=== PATIENT | female | born 1945 | race Caucasian/White ===

== ENCOUNTER 2016-09-29 18:52 | Observation (INO) | payer OTHER ==
[2016-09-29] MEDS ORDERED: HYDROmorphONE/DILAUDID 1 MG/ML SYR ONE (19:27)
[2016-09-29] MEDS ORDERED: ONDANSETRON 4 MG/2 ML VIAL ONE ×2 (19:36→20:26)
[2016-09-29] MEDS ORDERED: HYDROmorphONE/DILAUDID 1 MG/ML SYR IM ONE (19:40)
[2016-09-29 19:43] LABS: % IMMATURE GRANULYOCYTES 0.6 % (0.0-1.1); ABSOLUTE IMMATURE GRANULOCYTES 0.08 10^3/uL (0.00-0.10); ADD DIFF? NO; ADD MORPH? NO; ADD SCAN? NO; ATYPICAL LYMPHOCYTE FLAG 0 (0-99); FRAGMENT RBC FLAG 0 (0-99); HEMATOCRIT 47.1 % (38.0-47.0); HEMOGLOBIN 16.5 g/dL (12.6-16.3); LEFT SHIFT FLG 0 (0-99); LIPEMIA HEMOLYSIS FLAG 90 (0-99); MEAN CELL VOLUME 96.9 fL (81.5-99.8); MEAN PLATELET VOLUME 10.1 fL (8.7-11.7); PLATELET CLUMPS FLAG 0 (0-99); PLATELET COUNT 211 10^3/uL (150-400); RED BLOOD CELL COUNT 4.86 10^6/uL (4.18-5.33); RED CELL DISTRIBUTION WIDTH 13.6 % (11.5-15.2)
[2016-09-29] MEDS ORDERED: ONDANSETRON 4 MG/2 ML VIAL IVP ONE ×2 (19:45→20:41)
[2016-09-29] MEDS ORDERED: NS 1,000 ML IV ONE (19:45)
[2016-09-29] MEDS ORDERED: HYDROmorphONE/DILAUDID 1 MG/ML SYR IVP ONE ×2 (20:31→20:48)
[2016-09-29] MEDS ORDERED: PROMETHAZINE HCL 25 MG/ML VIAL ONE (20:48)
[2016-09-29] MEDS ORDERED: PROMETHAZINE HCL 25 MG/ML VIAL IVP ONE (20:48)
[2016-09-29 21:00] LABS: ALANINE AMINOTRANSFERASE 44 IU/L (9-52); ALBUMIN 3.9 g/dL (3.5-5.0); ALKALINE PHOSPHATASE 233 IU/L (38-126); ANION GAP 14 mEq/L (8-16); ASPARTATE AMINOTRANSFERASE 57 IU/L (14-46); BILIRUBIN,TOTAL 0.9 mg/dL (0.1-1.4); BILIRUBIN-CONJUGATED 0.3 mg/dL (0.0-0.5); BILIRUBIN-UNCONJUGATED 0.6 mg/dL (0.0-1.1); CARBON DIOXIDE 23 mEq/l (22-31); CHLORIDE 103 mEq/L (97-110); CREATININE 0.5 mg/dL (0.6-1.0); GLOMERULAR FILTRATION RATE > 60; GLUCOSE 168 mg/dL (70-100); POTASSIUM 3.9 mEq/L (3.5-5.2); SODIUM 140 mEq/L (134-144); TOTAL PROTEIN 6.6 g/dL (6.3-8.2)
--- NOTE | 2016-09-29 21:44 | EDPHY ---
[id number]'s disease, bowel surgeries and bowel obstructions in the past with chronic abdominal pain and nausea. Patient normally takes Zofran methadone. She started having increasing nausea yesterday with multiple episodes of vomiting. Because of this she has been able to tolerate her pain medications. She states that she is having worsening diffuse abdominal pain. Patient states this is similar to her prior episodes of bowel obstruction. She was just admitted a month ago for similar symptoms but did not have an obstruction at that time. Denies any fevers or chills. No diarrhea. No chest pain or shortness of breath. She has been unable to keep anything down for 24 hours. ROS: 10 point Review of Systems is negative except as noted in the HPI. Physical exam: Gen: Awake, Alert, uncomfortable appearing HEENT: Nose: no rhinorrhea Eyes: PERRLA, EOMI Mouth: Dry mucosa Neck: Supple, no JVD Chest: nontender, lungs clear to auscultation Heart: S1, S2 normal, no murmur Abd: Diffuse tenderness with moderate voluntary guarding, not distended, difficult to evaluate due to patient's not cooperating Back: no CVA tenderness, no midline tenderness Ext: no edema, non-tender Skin: no rash Neuro: CN II-XII intact, Sensation grossly intact, Strength 5/5 in bilateral upper and lower extremities ED Course: Abdominal x-ray limited based on patient position. Per Dr. Whyte is concerned that there is a possibility of some free air. Patient does have a elevated white count 14. I think this is likely mostly demargination from her vomiting. Plain film cannot rule out free air. There is some dilated loops of bowel but no air-fluid level suggestive of obstruction at this time. CT scan has been ordered at Dr. Whyte recommendation. In the meantime of spoken with Dr. Duffy, hospitalist for plan for admission for continued symptom control and further evaluation. CT abdomen and pelvis is negative for acute perforation, obstruction, or inflammatory process per Dr. Whyte. - Data Points Laboratory Results: Laboratory Results 09/29/16 19:20 09/29/16 20:20 09/29/16 09/29/16 20:20 19:20 WBC 14.40 H 10^3/uL (3.80-9.50) RBC 4.86 10^6/uL (4.18-5.33) Hgb 16.5 H g/dL (12.6-16.3) Hct 47.1 H % (38.0-47.0) MCV 96.9 fL (81.5-99.8) MCH 34.0 pg (27.9-34.1) MCHC 35.0 g/dL (32.4-36.7) RDW 13.6 % (11.5-15.2) Plt Count 211 10^3/uL (150-400) MPV 10.1 fL (8.7-11.7) Neut % (Auto) 81.9 H % (39.3-74.2) Lymph % (Auto) 8.4 L % (15.0-45.0) [place] % (Auto) 8.5 % (4.5-13.0) Eos % (Auto) 0.1 L % (0.6-7.6) Baso % (Auto) 0.5 % (0.3-1.7) Nucleat RBC Rel Count 0.0 % (0.0-0.2) Absolute Neuts (auto) 11.80 H 10^3/uL (1.70-6.50) Absolute Lymphs (auto) 1.21 10^3/uL (1.00-3.00) Absolute Monos (auto) 1.23 H 10^3/uL (0.30-0.80) Absolute Eos (auto) 0.01 L 10^3/uL (0.03-0.40) Absolute Basos (auto) 0.07 10^3/uL (0.02-0.10) Absolute Nucleated RBC 0.00 10^3/uL (0-0.01) Immature Gran % 0.6 % (0.0-1.1) Immature Gran # 0.08 10^3/uL (0.00-0.10) Sodium 140 mEq/L REJ (134-144) Potassium 3.9 mEq/L Not Reported (3.5-5.2) Chloride 103 mEq/L Not Reported (97-110) Carbon Dioxide 23 mEq/l Not Reported (22-31) Anion Gap 14 mEq/L Not Reported (8-16) BUN 9 mg/dL Not Reported (7-23) Creatinine 0.5 L mg/dL Not Reported (0.6-1.0) Estimated GFR > 60 Not Reported Glucose 168 H mg/dL Not Reported (70-100) Calcium 9.0 mg/dL Not Reported (8.5-10.4) Total Bilirubin 0.9 mg/dL Not Reported (0.1-1.4) Conjugated Bilirubin 0.3 mg/dL Not Reported (0.0-0.5) Unconjugated Bilirubin 0.6 mg/dL Not Reported (0.0-1.1) AST 57 H IU/L Not Reported (14-46) ALT 44 IU/L Not Reported (9-52) Alkaline Phosphatase 233 H IU/L Not Reported (38-126) Total Protein 6.6 g/dL REJ (6.3-8.2) Albumin 3.9 g/dL Not Reported (3.5-5.0) Lipase 43.0 IU/L REJ (23-300) Medications Given: Discontinued Medications Hydromorphone HCl (Dilaudid) 2 mg IM EDNOW ONE Stop: 09/29/16 19:41 Last Admin: 09/29/16 20:19 Dose: 2 mg Hydromorphone HCl (Dilaudid) 0.5 mg IVP EDNOW ONE Stop: 09/29/16 20:32 Last Admin: 09/29/16 20:31 Dose: 0.5 mg Hydromorphone HCl (Dilaudid) 0.5 mg IVP EDNOW ONE Stop: 09/29/16 20:49 Last Admin: 09/29/16 20:55 Dose: 0.5 mg Sodium Chloride (Ns) 1,000 mls @ 0 mls/hr IV ONCE ONE PRN Reason: Wide Open Stop: 09/29/16 19:46 Last Admin: 09/29/16 19:45 Dose: 1,000 mls Lorazepam (Ativan Injection) 1 mg IVP EDNOW ONE Stop: 09/29/16 22:03 Last Admin: 09/29/16 22:18 Dose: 1 mg Ondansetron HCl (Zofran) 4 mg IVP EDNOW ONE Stop: 09/29/16 19:46 Last Admin: 09/29/16 19:45 Dose: 4 mg Ondansetron HCl (Zofran) 4 mg IVP EDNOW ONE Stop: 09/29/16 20:42 Last Admin: 09/29/16 20:41 Dose: 4 mg Promethazine HCl (Phenergan Injection) 12.5 mg IVP ONCE ONE Stop: 09/29/16 20:49 Last Admin: 09/29/16 20:55 Dose: 12.5 mg General Time Seen by Provider: 09/29/16 19:07 Initial Vital Signs: Initial Vital Signs Heart Rate 89 09/29/16 18:52 Respiratory Rate 22 H 09/29/16 18:52 Blood Pressure 103/73 09/29/16 18:52 O2 Sat (%) 97 09/29/16 18:52 O2 Delivery Mode Nasal Cannula O2 (L/minute) 2 Allergies/Adverse Reactions: No Known Allergies Allergy (Verified 04/06/16 08:02) Home Medications: Medication Instructions Recorded Docusate Sodium [Colace 100 MG (*)] 100 mg PO DAILY PRN 12/18/15 Methadone HCl [Methadone HCl 10 mg 20 mg PO Q6 12/18/15 (*)] Omeprazole 20 mg PO DAILY 12/18/15 oxyCODONE IR [Oxycodone Ir (*)] 5 mg PO Q4 PRN 12/18/15 sulfaSALAzine [Azulfidine 500 MG 500 mg PO QID 12/18/15 (*)] Estradiol [Climara] 0.025 mg TD MO@09 08/27/16 Herbals/Supplements -Info Only 1 ea PO DAILY 08/27/16 Ondansetron [Ondansetron Odt] 4 mg PO Q4 PRN 08/27/16 Acetaminophen [Tylenol 325mg (*)] 650 mg PO Q4HRS PRN #0 tab 08/28/16 Departure - Departure Disposition: [facility] Clinical Impression: Abdominal pain, Vomiting Condition: Fair
[2016-09-29] MEDS ORDERED: LORazepam 2 MG/ML INJ IVP ONE (22:02)
--- NOTE | 2016-09-29 22:14 | DX ---
Two Views of the Abdomen (AP chest and supine abdomen) History: Abdominal pain. Vomiting. History of small bowel obstruction in the past. Patient is unable to stand for the upright abdomen film. Crohn's disease. Comparison: KUB August 27, 2016 Findings: PA chest: Density from bilateral breast implant capsular calcification overlies each lower chest. No evidence for pneumonia or pleural effusion. No obvious free air seen beneath either hemidia phragm. There is a right shoulder replacement. The distal right clavicle has been surgically resected . KUB: There are no dilated there is a prominent gas-filled loop of bowel in the right pelvis. The lowe r margin of the liver is quite sharp such that it is impossible to exclude free air adjacent to the l iver. There is a chronic severe lumbar scoliosis. Impression: Possible right upper quadrant free air beneath the liver. Consider CT. Results discussed with Dr. Watts at 10:10 PM
[2016-09-29] MEDS ORDERED: IOPAMIDOL (ISOVUE-300) 100 ML BTL IV ONE (22:22)
--- NOTE | 2016-09-29 22:24 | PDGENHP ---
History and Physical History and Physical: Chief Complaint: Nausea, vomiting, and abdominal pain History of presenting illness: This is a 71-year-old female who is present in the hospital multiple times with similar symptoms presents to the emergency department today with abdominal pain and nausea vomiting. During the time my exam the patient was somewhat somnolent and hard to arouse. She was not speaking in full sentences. She was unable to tell me when her symptoms started. She does say that she has been having problems with nausea vomiting and has not been able to take her pain medications. She has not been able eat or drink Due to vomiting. She denies any fevers or chills. She denies any diarrhea. In the emergency department she was given a total of 5 mg of IV Dilaudid, as well as Phenergan, and Zofran. Past medical history: 1. Recurrent admissions for abdominal pain last of which was August of 2016 2. Questionable history of Crohn's disease 3. 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 Chronic back pain with continuous opioid dependency 5. GERD 6. scoliosis Past surgical history: 1. Cholecystectomy 2. Appendectomy 3. History of lysis of adhesions 4. Hysterectomy 5. Breast augmentation Home medications: Were reviewed refer to [facility] for details Allergies: No known drug allergies Social history: Patient lives in [place] with her . She denies any tobacco use. She does use marijuana. She denies any alcohol. Family history: Negative for cancer or coronary artery disease Review of systems: A comprehensive 10 point review systems was done that was negative except for what was mentioned in the HPI and below. PHYSICAL EXAM: 09/29/16 18:52 Heart Rate 89 Respiratory 22 H Rate O2 Sat (%) 97 Blood Pressure 103/73 O2 Delivery Room Air Mode GENERAL: Uncomfortable HEENT: Head is normocephalic atraumatic, eyes are PERRLA, ears are normal appearing, mucous membranes are moist without lesions CARDIOVASCULAR: Regular rate and rhythm; normal S1 and S2 without murmurs, rubs , clicks, gallops; there is no JVD; there is no lower extremity edema PULMONARY: Lungs are clear to auscultation bilaterally without wheezes, rales, rhonchi; respiratory effort is nonlabored without signs of acute respiratory distress. ABDOMINAL/GASTROINTESTINAL: Soft, nontender, nondistended with normoactive bowel sounds. There is no guarding or rebound tenderness. GENITOURINARY: No Lopez in place EXTREMITIES: No clubbing, cyanosis, or edema NEUROLOGIC: Cranial nerves 2-12 appear grossly intact; face symmetric; moves all other extremities; speech is slurred and slow; alert and oriented to person and place SKIN: There are no rashes; I did not examine the patient for decubiti Diagnostics: Laboratory Tests 09/29/16 09/29/16 19:20 20:20 WBC 14.40 H Hgb 16.5 H Hct 47.1 H Plt Count 211 Sodium 140 Potassium 3.9 Chloride 103 Carbon Dioxide 23 BUN 9 Creatinine 0.5 L Glucose 168 H AST 57 H ALT 44 Alkaline Phosphatase 233 H Imaging: Visualized and personally interpreted the KUB and chest x-ray Radiology read was reviewed: Possible right upper quadrant free air beneath the liver. Consider CT. Assessment: this 71-year-old female with a reported history of Crohn's disease as well as multiple bowel obstructions requiring multiple hospitalizations for nausea vomiting abdominal pain presenting with 1. intractable nausea vomiting 2. dehydration 3. leukocytosis likely due to stress demargination 4. history of chronic daily opioid dependence not able to take her home medications 5. mildly elevated ALT plan: - Place in observation - IV fluids - IV antiemetics - IV narcotic pain medications in hopes to transition to her usual home oral regime in the morning - outpatient monitoring of LFTs - clear liquid diet and advance as tolerated
--- NOTE | 2016-09-29 23:14 | CT ---
CT Abdomen and Pelvis, with contrast HISTORY: Nausea and vomiting, history of Crohn's disease and bowel resection for small bowel obstruct ion, possible free air seen on abdominal x-rays earlier TECHNIQUE: 90 mL Isovue-300 injected intravenously followed by [address] through the abdom en and pelvis utilizing low-dose technique. Comparison: April 06, 2016 Findings: There is no free air or evidence of a bowel obstruction. There is no free fluid. There is s table mild intrahepatic biliary dilatation associated with postcholecystectomy surgical clips in the gallbladder fossa. The common duct is stable at 9.7 mm. These changes are likely related to the postc holecystectomy state since no abnormality is identified in the pancreatic head. The lung bases are no rmally aerated without pleural fluid. Heart size is normal without pericardial fluid. The hepatic vei ns portal vein and splenic vein remain patent. The liver is chronically mildly enlarged (18.4 cm). Th e spleen is normal in size ( 8 cm). The adrenal glands and kidneys are normal. There is no aortic ane urysm or dissection. There is no abnormal small bowel enhancement. There is multilevel degenerative d isc disease in the low thoracic and lumbar spine. There is fusion of the L4-S1 levels and there is a wide right-sided laminectomy behind L5. Impression:1. No free air or bowel obstruction. The appearance on the recent KUB is related to coloni c gas directly adjacent to the right lobe of the liver. 2. Chronic biliary dilatation consistent prior cholecystectomy. 3. No CT evidence for active Crohn's disease. Results discussed with Dr. Manuel Watts at 11:11 PM
[2016-09-29] MEDS ORDERED: ONDANSETRON 4 MG/2 ML VIAL IVP PRN (23:26)
[2016-09-29] MEDS ORDERED: HYDROmorphONE/DILAUDID 1 MG/ML SYR IVP PRN (23:26)
[2016-09-29] MEDS ORDERED: PROMETHAZINE HCL 25 MG/ML VIAL IVP PRN (23:26)
[2016-09-29] MEDS ORDERED: LORazepam 0.5 MG TAB PO PRN (23:26)
[2016-09-29] MEDS ORDERED: oxyCODONE IR 5 MG TAB PO PRN (23:26)
[2016-09-29] MEDS ORDERED: ZOLPIDEM TARTRATE 5 MG TAB PO PRN (23:26)
[2016-09-29] MEDS ORDERED: ACETAMINOPHEN 325 MG TAB PO PRN (23:26)
[2016-09-30 00:15] VITALS: RESP 16
[2016-09-30] MEDS: D5W 1/2 NS W/ 20 KCl/L 1,000 ML IV SCH ×2 (01:02→08:09)
[2016-09-30] MEDS: HYDROmorphONE/DILAUDID 1 MG/ML SYR IVP PRN ×2 (04:08→08:09)
[2016-09-30 05:33] LABS: % IMMATURE GRANULYOCYTES 0.4 % (0.0-1.1); ABSOLUTE IMMATURE GRANULOCYTES 0.05 10^3/uL (0.00-0.10); ADD DIFF? NO; ADD MORPH? NO; ADD SCAN? NO; ATYPICAL LYMPHOCYTE FLAG 0 (0-99); FRAGMENT RBC FLAG 0 (0-99); HEMATOCRIT 41.1 % (38.0-47.0); HEMOGLOBIN 14.1 g/dL (12.6-16.3); LEFT SHIFT FLG 0 (0-99); LIPEMIA HEMOLYSIS FLAG 90 (0-99); MEAN CELL HEMOGLOBIN 33.1 pg (27.9-34.1); MEAN CELL HEMOGLOBIN CONCENTR. 34.3 g/dL (32.4-36.7); MEAN CELL VOLUME 96.5 fL (81.5-99.8); MEAN PLATELET VOLUME 9.7 fL (8.7-11.7); PLATELET CLUMPS FLAG 30 (0-99); PLATELET COUNT 161 10^3/uL (150-400); RED BLOOD CELL COUNT 4.26 10^6/uL (4.18-5.33); RED CELL DISTRIBUTION WIDTH 13.7 % (11.5-15.2)
[2016-09-30 05:50] LABS: ANION GAP 6 mEq/L (8-16); CALCIUM 7.7 mg/dL (8.5-10.4); CARBON DIOXIDE 28 mEq/l (22-31); CHLORIDE 105 mEq/L (97-110); CREATININE 0.6 mg/dL (0.6-1.0); GLOMERULAR FILTRATION RATE > 60; GLUCOSE 121 mg/dL (70-100); POTASSIUM 4.1 mEq/L (3.5-5.2); SODIUM 139 mEq/L (134-144)
[2016-09-30 08:13] VITALS: TEMP 98.3
[2016-09-30 11:34] VITALS: BP 140/83; PULSE 82
[2016-09-30 12:14] VITALS: O2SAT 89
[2016-09-30] MEDS ORDERED: ACETAMINOPHEN 325 MG TAB PO PRN (12:15)
[2016-09-30] MEDS ORDERED: DOCUSATE SODIUM 100 MG CAP PO PRN (12:15)
[2016-09-30] MEDS ORDERED: METHADONE HCL 10 MG TAB PO SCH (16:00)
[2016-09-30] MEDS ORDERED: sulfaSALAzine 500 MG TAB PO SCH (16:00)
--- NOTE | 2016-09-30 16:16 | GDS ---
[f rep st] DISCHARGE SUMMARY DISCHARGE DIAGNOSES: 1. Nausea and vomiting. 2. Dehydration. 3. Leukocytosis. 4. Chronic narcotic dependency. STUDIES AND PROCEDURES DONE: 1. CT of the abdomen. 2. X-ray of the abdomen. PHYSICAL EXAM: GENERAL: The patient is alert and oriented, in no acute distress. VITAL SIGNS: Afe brile at 36.8. Pulse is 82. Respiratory rate is 16. Blood pressure is 140/83. She is saturating 8 9% on room air. I have seen and evaluated the patient on the day of discharge. HOSPITAL COURSE: The patient has a longstanding history of small bowel obstruction with nausea, vomi ting, and abdominal pain. She presented to the emergency room with complaints of nausea and vomiting . She was evaluated by a CT scan as well as an abdominal x-ray which demonstrated no signs of small bowel obstruction. She was treated with supportive management, including antiemetics and IV fluids. Her condition has completely resolved. She is not having any further nausea or vomiting. She is to lerating a regular diet. Her dehydration has been treated with IV fluids, and her leukocytosis has a lmost returned to normal. There are no pending studies. The patient feels that she is able to be di scharged home independently and will follow up in the outpatient setting with her primary care physic renetta. I have offered the patient antiemetics at the time of disposition; however, she states that she does not feel that these are beneficial or will assist her in the outpatient setting. DISCHARGE MEDICATIONS: Please refer to EMR form. I have not adjusted the patient's previously presc ribed home medications. FOLLOWUP: Will be with her primary care physician. /[id number]/MODL
[2016-10-01] MEDS ORDERED: NON-FORMULARY NEW DRUG (Omeprazole [Omeprazole] 20 MG) PO SCH (09:00)
[2016-10-01] MEDS ORDERED: PANTOPRAZOLE SODIUM 40 MG TAB PO SCH (09:00)
[2016-10-05] MEDS ORDERED: ESTRADIOL 0.025 MG PATCH TD SCH (09:00)
== END 2016-09-30 15:44 | disposition home or self-care (01) ==
LOC: F3E 09-30 00:35
PROVIDERS: ADMIT Family Medicine; ATTEND Family Medicine
DX: R11.2 Nausea with vomiting, unspecified (principal); E86.0 Dehydration; D72.829 Elevated white blood cell count, unspecified; F11.20 Opioid dependence, uncomplicated; G89.29 Other chronic pain; M54.9 Dorsalgia, unspecified; K21.9 Gastro-esophageal reflux disease without esophagitis
CPT/HCPCS: 74020; 74177; 96361; 96372; 96374; 96375; 96376; 99285; G0378; J1170; J2405; J2550; Q9967

== ENCOUNTER 2016-10-30 18:12 | Emergency (ER) | payer OTHER ==
[2016-10-30] MEDS ORDERED: HYDROmorphONE/DILAUDID 1 MG/ML SYR ONE (18:28)
[2016-10-30] MEDS ORDERED: ONDANSETRON 4 MG/2 ML VIAL ONE (18:28)
[2016-10-30] MEDS ORDERED: NS 1,000 ML IV ONE (18:32)
[2016-10-30] MEDS ORDERED: ONDANSETRON 4 MG/2 ML VIAL IVP ONE (18:32)
--- NOTE | 2016-10-30 18:36 | EDPHY ---
H & P Stated Complaint: N/V/abd pain;unable to hold down methadone,now having w/drawal Time Seen by Provider: 10/30/16 18:24 HPI/ROS: CHIEF COMPLAINT: Vomiting HISTORY OF PRESENT ILLNESS: The patient is a 71-year-old female comes to the emergency department complaining nausea and vomiting and now dry heaving since this morning. She has a history of recurrent small-bowel obstructions, chronic abdominal pain, narcotic dependence on methadone, questionable Crohn's disease, questionable SMA syndrome and multiple abdominal surgeries. Her gallbladder, appendix and uterus of all been removed. She has not had a fever. She does not think that this is a bowel obstruction because she has been able to pass gas and stool today. She complains of epigastric abdominal pain which she states is typical. She also is concerned for narcotic withdrawal because she threw up her methadone this morning and was not able to take it tonight. REVIEW OF SYSTEMS: Constitutional: denies: chills, fever, recent illness, recent injury EENTM: denies: blurred vision, double vision, nose congestion Respiratory: denies: cough, shortness of breath Cardiac: denies: chest pain, irregular heart rate, lightheadedness, palpitations Gastrointestinal/Abdominal: See HPI Genitourinary: denies: dysuria, frequency, hematuria, pain Musculoskeletal: denies: joint pain, muscle pain Skin: denies: lesions, rash, jaundice, bruising Neurological: denies: headache, numbness, paresthesia, tingling, dizziness, weakness Hematologic/Lymphatic: denies: blood clots, easy bleeding, easy bruising Immunologic/allergic: denies: HIV/AIDS, transplant EXAM: GENERAL: Well-appearing, well-nourished and in no acute distress. HEAD: Atraumatic, normocephalic. EYES: Pupils equal round and reactive to light, extraocular movements intact, sclera anicteric, conjunctiva are normal. ENT: TMs normal, nares patent, oropharynx clear without exudates. Moist mucous membranes. NECK: Normal range of motion, supple without lymphadenopathy or JVD. LUNGS: Breath sounds clear to auscultation bilaterally and equal. No wheezes rales or rhonchi. HEART: Regular rate and rhythm without murmurs, rubs or gallops. ABDOMEN: Soft, voluntary guarding, no rebound. No masses appreciated. BACK: No CVA tenderness, no spinal tenderness, step-offs or deformities EXTREMITIES: Normal range of motion, no pitting or edema. No clubbing or cyanosis. NEUROLOGICAL: Cranial nerves II through XII grossly intact. Normal speech, normal gait. 5/5 strength, normal movement in all extremities, normal sensation PSYCH: Normal mood, normal affect. SKIN: Warm, dry, normal turgor, no visible rashes or lesions. Source: Patient Exam Limitations: No limitations - Personal History Current Tetanus Diphtheria and Acellular Pertussis (TDAP): Yes Tetanus Vaccine Date: LESS THAN 10 YEARS - Medical/Surgical History Hx Asthma: No Hx Chronic Respiratory Disease: No Hx Diabetes: No Hx Cardiac Disease: No Hx Renal Disease: No Hx Cirrhosis: No Hx Alcoholism: No Hx HIV/AIDS: No Hx Splenectomy or Spleen Trauma: No Other PMH: multiple Bowel obstructions , opiod dependence, chronic low backpain , GERD, cholelithiasis, chronic colitis, abdominal bloating, chronic N/V, cholelithiasis, gi bleed (2010), mutiple back surgeries, scoleosis, deginerative spine diease. psh- appy, nena, hysterectomy, gi surgery, right shoulder surgery, left knee surgery, BACK SURGERY - Family History Significant Family History: No pertinent family hx - Social History Smoking Status: Heavy smoker Alcohol Use: Sober Drug Use: None Constitutional: Initial Vital Signs Temperature (C) 36.4 C 10/30/16 18:15 Heart Rate 98 10/30/16 18:15 Respiratory Rate 24 H 10/30/16 18:15 Blood Pressure 176/104 H 10/30/16 18:15 O2 Sat (%) 95 10/30/16 18:15 O2 Delivery Mode Room Air O2 (L/minute) 3 Allergies/Adverse Reactions: No Known Allergies Allergy (Verified 04/06/16 08:02) Home Medications: Medication Instructions Recorded Docusate Sodium [Colace 100 MG (*)] 100 mg PO DAILY PRN 12/18/15 Methadone HCl [Methadone HCl 10 mg 20 mg PO TID 12/18/15 (*)] Omeprazole 20 mg PO DAILY 12/18/15 oxyCODONE IR [Oxycodone Ir (*)] 5 mg PO Q4 PRN 12/18/15 sulfaSALAzine [Azulfidine 500 MG 500 mg PO QID 12/18/15 (*)] Estradiol [Climara] 0.025 mg TD WE@09 08/27/16 Ondansetron [Ondansetron Odt] 4 mg PO Q4 PRN 08/27/16 Acetaminophen [Tylenol 325mg (*)] 650 mg PO Q4HRS PRN #0 tab 08/28/16 Medical Decision Making - Diagnostics Imaging: X-ray: Abdominal x-ray was obtained. I viewed the images myself on the PACS system. My interpretation of the images is: Negative for obstruction or free air. The radiologist interpretation is pending. ED Course/Re-evaluation: 7:30 p.m. The patient has continued to retch. She was given 8 of Zofran initially and Dilaudid. She desaturated slightly but was refusing x-ray exam because she did not feel up to it. She was given Phenergan and this has improved but she continues to retch occasionally. I will treat her with Haldol. She is saturating 98% on nasal cannula. 8:40 p.m. the patient is feeling much better. She is no longer retching. She states that she is not yet ready to go home. Her is in patient and considered leaving and returning in the morning but patient feels like she will be able to go home and about half an hour. 9:40 p.m. the patient is feeling much better and is asking to go home. Differential Diagnosis: Partial list of the Differential diagnosis considered include but were not limited to; opiate withdrawal, vomiting, small bowel obstruction, anxiety and although unlikely based on the history and physical exam, I also considered ischemia, volvulus, diverticulitis. I discussed these differential diagnoses and the plan with the patient as well as the usual and expected course. The patient understands that the diagnosis is provisional and that in medicine we are not always correct and that further workup is often warranted. Usual and customary warnings were given. All of the patient's questions were answered. The patient was instructed to return to the emergency department should the symptoms at all worsen or return, otherwise to followup with the physician as we discussed. - Data Points Laboratory Results: Laboratory Results 10/30/16 18:30 10/30/16 20:00 10/30/16 10/30/16 10/30/16 20:00 18:30 18:30 WBC 12.07 10^3/uL H 10^3/uL (3.80-9.50) RBC 5.28 10^6/uL 10^6/uL (4.18-5.33) Hgb 17.9 g/dL H g/dL (12.6-16.3) Hct 50.8 % H % (38.0-47.0) MCV 96.2 fL fL (81.5-99.8) MCH 33.9 pg pg (27.9-34.1) MCHC 35.2 g/dL g/dL (32.4-36.7) RDW 13.5 % % (11.5-15.2) Plt Count 175 10^3/uL 10^3/uL (150-400) MPV 9.9 fL fL (8.7-11.7) Neut % (Auto) 83.5 % H % (39.3-74.2) Lymph % (Auto) 9.7 % L % (15.0-45.0) [place] % (Auto) 5.7 % % (4.5-13.0) Eos % (Auto) 0.0 % L % (0.6-7.6) Baso % (Auto) 0.8 % % (0.3-1.7) Nucleat RBC Rel Count 0.0 % % (0.0-0.2) Absolute Neuts (auto) 10.07 10^3/uL H 10^3/uL (1.70-6.50) Absolute Lymphs (auto) 1.17 10^3/uL 10^3/uL (1.00-3.00) Absolute Monos (auto) 0.69 10^3/uL 10^3/uL (0.30-0.80) Absolute Eos (auto) 0.00 10^3/uL L 10^3/uL (0.03-0.40) Absolute Basos (auto) 0.10 10^3/uL 10^3/uL (0.02-0.10) Absolute Nucleated RBC 0.00 10^3/uL 10^3/uL (0-0.01) Immature Gran % 0.3 % % (0.0-1.1) Immature Gran # 0.04 10^3/uL 10^3/uL (0.00-0.10) Turbidity TNP Sodium 140 mEq/L mEq/L TNP (134-144) Potassium 5.0 mEq/L mEq/L TNP (3.5-5.2) Chloride 107 mEq/L mEq/L TNP (97-110) Carbon Dioxide 24 mEq/l mEq/l TNP (22-31) Anion Gap 9 mEq/L mEq/L TNP (8-16) BUN 8 mg/dL mg/dL TNP (7-23) Creatinine 0.4 mg/dL L mg/dL TNP (0.6-1.0) Estimated GFR > 60 TNP Glucose 153 mg/dL H mg/dL TNP (70-100) Calcium 8.6 mg/dL mg/dL TNP (8.5-10.4) Total Bilirubin TNP Conjugated Bilirubin TNP Unconjugated Bilirubin TNP AST TNP ALT TNP Alkaline Phosphatase TNP Total Protein TNP Albumin TNP Lipase 33.0 IU/L IU/L TNP (23-300) Specimen Hemolysis 241 TNP Medications Given: Discontinued Medications Haloperidol Lactate (Haldol Injection) 5 mg IVP EDNOW ONE Stop: 10/30/16 19:43 Last Admin: 10/30/16 19:52 Dose: 5 mg Hydromorphone HCl (Dilaudid) 1 mg IVP EDNOW ONE Stop: 10/30/16 18:43 Last Admin: 10/30/16 18:45 Dose: 1 mg Hydromorphone HCl (Dilaudid) 1 mg IVP EDNOW ONE Stop: 10/30/16 19:09 Last Admin: 10/30/16 19:14 Dose: 1 mg Sodium Chloride (Ns) 1,000 mls @ 0 mls/hr IV ONCE ONE PRN Reason: Wide Open Stop: 10/30/16 18:33 Last Admin: 10/30/16 18:41 Dose: 1,000 mls Ondansetron HCl (Zofran) 8 mg IVP EDNOW ONE Stop: 10/30/16 18:33 Last Admin: 10/30/16 18:41 Dose: 8 mg Promethazine HCl (Phenergan) 25 mg IVP EDNOW ONE Stop: 10/30/16 19:05 Last Admin: 10/30/16 19:14 Dose: 25 mg Departure - Departure Disposition: Home, Routine, Self-Care Clinical Impression: Abdominal pain, Acute abdominal pain, Opiate dependence, continuous Condition: Fair Instructions: Acute Nausea and Vomiting (ED), Opioid Withdrawal (ED) Referrals: DARNELL FAY [Primary Care Provider] - As per Instructions
[2016-10-30 18:39] LABS: % IMMATURE GRANULYOCYTES 0.3 % (0.0-1.1); ABSOLUTE IMMATURE GRANULOCYTES 0.04 10^3/uL (0.00-0.10); ADD DIFF? NO; ADD MORPH? NO; ADD SCAN? NO; ATYPICAL LYMPHOCYTE FLAG 0 (0-99); FRAGMENT RBC FLAG 0 (0-99); HEMATOCRIT 50.8 % (38.0-47.0); HEMOGLOBIN 17.9 g/dL (12.6-16.3); LEFT SHIFT FLG 0 (0-99); LIPEMIA HEMOLYSIS FLAG 90 (0-99); MEAN CELL HEMOGLOBIN 33.9 pg (27.9-34.1); MEAN CELL HEMOGLOBIN CONCENTR. 35.2 g/dL (32.4-36.7); MEAN CELL VOLUME 96.2 fL (81.5-99.8); MEAN PLATELET VOLUME 9.9 fL (8.7-11.7); PLATELET CLUMPS FLAG 0 (0-99); PLATELET COUNT 175 10^3/uL (150-400); RED BLOOD CELL COUNT 5.28 10^6/uL (4.18-5.33); RED CELL DISTRIBUTION WIDTH 13.5 % (11.5-15.2)
[2016-10-30] MEDS ORDERED: HYDROmorphONE/DILAUDID 1 MG/ML SYR IVP ONE ×2 (18:42→19:08)
[2016-10-30] MEDS ORDERED: PROMETHAZINE HCL 25 MG/ML INJ ONE (18:44)
[2016-10-30] MEDS ORDERED: PROMETHAZINE HCL 25 MG/ML INJ IVP ONE (19:04)
[2016-10-30] MEDS ORDERED: HALOPERIDOL LACT 5 MG/ML INJ IVP ONE (19:42)
[2016-10-30 20:25] LABS: ANION GAP 9 mEq/L (8-16); CALCIUM 8.6 mg/dL (8.5-10.4); CARBON DIOXIDE 24 mEq/l (22-31); CHLORIDE 107 mEq/L (97-110); CREATININE 0.4 mg/dL (0.6-1.0); GLOMERULAR FILTRATION RATE > 60; GLUCOSE 153 mg/dL (70-100); SODIUM 140 mEq/L (134-144)
[2016-10-30 20:29] LABS: SPECIMEN HEMOLYSIS 241
[2016-10-30 21:54] VITALS: BP 124/67; PULSE 75; RESP 16; TEMP 97.9; O2SAT 94
== END 2016-10-30 21:54 | disposition home or self-care (01) ==
DX: R10.0 Acute abdomen (principal); F11.20 Opioid dependence, uncomplicated; F17.200 Nicotine dependence, unspecified, uncomplicated; Z90.49 Acquired absence of other specified parts of digestive tract
CPT/HCPCS: 74000; 96361; 96374; 96375; 99285; J1170; J2405; J2550

== ENCOUNTER 2016-11-14 12:10 | Observation (INO) | payer OTHER ==
[2016-11-14] MEDS ORDERED: ONDANSETRON 4 MG/2 ML VIAL IVP ONE (12:28)
[2016-11-14] MEDS ORDERED: ONDANSETRON 4 MG/2 ML VIAL ONE (12:28)
[2016-11-14] MEDS ORDERED: NS 1,000 ML IV ONE (12:39)
[2016-11-14] MEDS ORDERED: HYDROmorphONE/DILAUDID 1 MG/ML SYR IVP ONE ×2 (12:39→13:52)
[2016-11-14] MEDS ORDERED: PROMETHAZINE HCL 25 MG/ML INJ IVP ONE (12:39)
--- NOTE | 2016-11-14 12:45 | UCPHY ---
H & P Chief Complaint Nursing Narrative: Nausea and vomiting Time Seen by Provider: 11/14/16 12:39 HPI/ROS: This is a 71-year-old female presented to the emergency department, complaining nausea and vomiting since 10 o'clock last night. Patient reports unable to take her methadone this morning due to the nausea vomiting with abdominal pain. Denies any blood in her vomit, no diarrhea no other complaints. Denies any chest pain or shortness of breath REVIEW OF SYSTEMS: Constitutional: (-)fever (+)fatigue (+)decrease in appetite and unable to tolerate PO intake since last night Eyes: (-)blurred vision ENT: (-)sore throat Respiratory: (-)cough (-)shortness of breath ze Cardiac: (-)chest pain (-)palpitations Gastrointestinal: (+)abdominal pain (+)vomit (-)diarrhea Musculoskeletal: (-)back pain (-)injury (-)swelling Skin: (-)rashes Neurological: (-) headache (-)dizziness Psych: (+)anxiety (-)SI/HI Source: Patient - Personal History Current Tetanus Diphtheria and Acellular Pertussis (TDAP): Yes Tetanus Vaccine Date: LESS THAN 10 YEARS - Medical/Surgical History Hx Asthma: No Hx Chronic Respiratory Disease: No Hx Diabetes: No Hx Cardiac Disease: No Hx Renal Disease: No Hx Cirrhosis: No Hx Alcoholism: No Hx HIV/AIDS: No Hx Splenectomy or Spleen Trauma: No Other PMH: multiple Bowel obstructions , opiod dependence, chronic low backpain , GERD, cholelithiasis, chronic colitis, abdominal bloating, chronic N/V, cholelithiasis, gi bleed (2010), mutiple back surgeries, scoleosis, deginerative spine diease. psh- appy, nena, hysterectomy, gi surgery, right shoulder surgery, left knee surgery, BACK SURGERY - Social History Smoking Status: Heavy smoker Constitutional: Initial Vital Signs Heart Rate 101 H 11/14/16 12:14 Respiratory Rate 24 H 11/14/16 12:14 Blood Pressure 187/95 H 11/14/16 12:14 O2 Sat (%) 95 11/14/16 12:14 O2 Delivery Mode Room Air Allergies/Adverse Reactions: No Known Allergies Allergy (Verified 04/06/16 08:02) Home Medications: Medication Instructions Recorded Docusate Sodium [Colace 100 MG (*)] 100 mg PO DAILY PRN 12/18/15 Methadone HCl [Methadone HCl 10 mg 20 mg PO TID 12/18/15 (*)] Omeprazole 20 mg PO DAILY 12/18/15 oxyCODONE IR [Oxycodone Ir (*)] 5 mg PO Q4 PRN 12/18/15 sulfaSALAzine [Azulfidine 500 MG 500 mg PO QID 12/18/15 (*)] Estradiol [Climara] 0.025 mg TD WE@08/27/16 Ondansetron [Ondansetron Odt] 4 mg PO Q4 PRN 08/27/16 Acetaminophen [Tylenol 325mg (*)] 650 mg PO Q4HRS PRN #0 tab 08/28/16 Medical Decision Making - Data Points Medications Given: Discontinued Medications Ondansetron HCl (Zofran) 4 mg IVP EDNOW ONE Stop: 11/14/16 12:29 Last Admin: 11/14/16 12:39 Dose: 4 mg Departure - Departure Referrals: DARNELL FAY [Primary Care Provider] - As per Instructions
[2016-11-14] MEDS ORDERED: PROMETHAZINE HCL 25 MG/ML INJ ONE (12:54)
--- NOTE | 2016-11-14 12:56 | EDPHY ---
H & P Stated Complaint: Recurrence of cyclic vomiting Source: Patient - Personal History Current Tetanus Diphtheria and Acellular Pertussis (TDAP): Yes Tetanus Vaccine Date: LESS THAN 10 YEARS - Medical/Surgical History Hx Asthma: No Hx Chronic Respiratory Disease: No Hx Diabetes: No Hx Cardiac Disease: No Hx Renal Disease: No Hx Cirrhosis: No Hx Alcoholism: No Hx HIV/AIDS: No Hx Splenectomy or Spleen Trauma: No Other PMH: multiple Bowel obstructions , opiod dependence, chronic low backpain , GERD, cholelithiasis, chronic colitis, abdominal bloating, chronic N/V, cholelithiasis, gi bleed (2010), mutiple back surgeries, scoleosis, deginerative spine diease. psh- appy, nena, hysterectomy, gi surgery, right shoulder surgery, left knee surgery, BACK SURGERY - Social History Smoking Status: Heavy smoker Time Seen by Provider: 11/14/16 12:39 HPI/ROS: This is a 71-year-old female presenting to the emergency department complaining of nausea vomiting. Patient states vomiting started last night around 10 o' clock PM, she was able to take her last dose of methadone, complaining of abdominal cramping, vomiting increased this morning unable to tolerate PO intake or unable to take her methadonedenies any diarrhea, or chest pain. REVIEW OF SYSTEMS: Constitutional: (-)fever (-)chills (+)fatigue (+)decrease in PO intake Respiratory: (-)cough (-)shortness of breath Cardiac: (-)chest pain (-)palpitations Gastrointestinal: (+)abdominal carmping (+)nausea/vomit Musculoskeletal: (-)back pain Skin: (-)rashes Neurological: (-) headache (-)dizziness Psych: (+)anxiety (Sagrario Ramirez) - Physical Exam Exam: CONSTITUTIONAL: patient appeared well nourished, non-ill appearing and normally developed. No acute distress. Vital signs as documented. HEENT: NCAT. Oropharynx (+)erythema NECK: Supple, FROM RESP: Non-labored resp effort, airway patent, CTAB CARDIAC: RRR w/o murmur, brenda. Normal S1/S2 GI: Abd soft TTP (-)mass noted (+)dry heaves with intermittent vomiting (-) blood noted NEURO: AAOx3 NAD EXTREMITIES: (+)FROM without difficulty SKIN: (-)rash PSYCH: anxious NAD (Sagrario Ramirez) Constitutional: Initial Vital Signs Heart Rate 101 H 11/14/16 12:14 Respiratory Rate 24 H 11/14/16 12:14 Blood Pressure 187/95 H 11/14/16 12:14 O2 Sat (%) 95 11/14/16 12:14 O2 Delivery Mode Room Air Allergies/Adverse Reactions: No Known Allergies Allergy (Verified 04/06/16 08:02) Home Medications: Medication Instructions Recorded Docusate Sodium [Colace 100 MG (*)] 100 mg PO DAILY PRN 12/18/15 Methadone HCl [Methadone HCl 10 mg 20 mg PO TID 12/18/15 (*)] Omeprazole 20 mg PO DAILY 12/18/15 oxyCODONE IR [Oxycodone Ir (*)] 5 mg PO Q4 PRN 12/18/15 sulfaSALAzine [Azulfidine 500 MG 500 mg PO QID 12/18/15 (*)] Estradiol [Climara] 0.025 mg TD SA@09 08/27/16 Ondansetron [Ondansetron Odt] 4 mg PO Q4 PRN 08/27/16 Acetaminophen [Tylenol 325mg (*)] 650 mg PO Q4HRS PRN 11/14/16 Medical Decision Making ED Course/Re-evaluation: Discussed plan of care with patient: IV fluids, pain meds Dilaudid, IV nausea medicine patient agree with plan. 1530 Re-evaluation: Patient is sleeping, nonlabored respiratory effort, no distress 1612 re-evaluation: The patient awake, continuing with dry heaves and abdominal pain. Discussed with patient, admitted for vomiting and pain control. (Sagrario Ramirez) This patient was seen and examined by me. She presents with recurrent symptoms similar to her previous cyclic vomiting syndrome. After 4 hours of observation in the emergency department, she still is actively vomiting and feels miserable. Her abdominal exam is benign. She will require admission for further treatment of intractable vomiting. Hospitalist was consulted for admission. Differential diagnosis includes though it is not limited to appendicitis, cholecystitis, diverticulitis, pyelonephritis, bowel perforation, small bowel obstruction. (Yoselyn Roberts) Differential Diagnosis: Clinical impression cyclic vomiting, other differential diagnosis considered but not limited gastritis, gastroenteritis and appy (Sagrario Ramirez) - Data Points Laboratory Results: Laboratory Results 11/14/16 14:00 11/14/16 14:00 Medications Given: Discontinued Medications Hydromorphone HCl (Dilaudid) 1 mg IVP EDNOW ONE Stop: 11/14/16 12:40 Last Admin: 11/14/16 12:59 Dose: 1 mg Hydromorphone HCl (Dilaudid) 1 mg IVP EDNOW ONE Stop: 11/14/16 13:53 Last Admin: 11/14/16 14:05 Dose: 1 mg Sodium Chloride (Ns) 1,000 mls @ 0 mls/hr IV ONCE ONE PRN Reason: Wide Open Stop: 11/14/16 12:40 Last Admin: 11/14/16 12:59 Dose: 1,000 mls Methadone HCl (Methadone Hcl) 20 mg PO TID [facility] Stop: 11/24/16 21:59 Last Admin: 11/15/16 08:27 Dose: 20 mg Metoclopramide HCl (Reglan Injection) 10 mg IVP EDNOW ONE Stop: 11/14/16 14:53 Last Admin: 11/14/16 15:00 Dose: 10 mg Ondansetron HCl (Zofran) 4 mg IVP EDNOW ONE Stop: 11/14/16 12:29 Last Admin: 11/14/16 12:39 Dose: 4 mg Oxycodone HCl (Oxycodone Ir) 5 mg PO Q4 PRN PRN Reason: Pain, [facility] Stop: 11/24/16 17:50 Last Admin: 11/15/16 03:57 Dose: 5 mg Pantoprazole Sodium (Protonix) 40 mg PO DAILY [facility] Stop: 05/14/17 08:59 Last Admin: 11/15/16 10:39 Dose: 40 mg Promethazine HCl (Phenergan) 12.5 mg IVP EDNOW ONE Stop: 11/14/16 12:40 Last Admin: 11/14/16 12:59 Dose: 12.5 mg Sulfasalazine (Azulfidine) 500 mg PO QID [facility] Stop: 12/14/16 20:59 Last Admin: 11/15/16 17:23 Dose: Not Given Departure - Departure Disposition: [facility] Acute Clinical Impression: Cyclical vomiting syndrome Intractable vomiting Qualifiers: Vomiting type: cyclical vomiting Nausea presence: with nausea Qualified Code(s) : G43.A1 - Cyclical vomiting, intractable Condition: Good
[2016-11-14 14:16] LABS: % IMMATURE GRANULYOCYTES 0.5 % (0.0-1.1); ABSOLUTE IMMATURE GRANULOCYTES 0.07 10^3/uL (0.00-0.10); ADD DIFF? NO; ADD MORPH? NO; ADD SCAN? NO; ATYPICAL LYMPHOCYTE FLAG 0 (0-99); FRAGMENT RBC FLAG 0 (0-99); HEMATOCRIT 49.7 % (38.0-47.0); HEMOGLOBIN 17.3 g/dL (12.6-16.3); LEFT SHIFT FLG 0 (0-99); LIPEMIA HEMOLYSIS FLAG 90 (0-99); MEAN CELL HEMOGLOBIN 33.4 pg (27.9-34.1); MEAN CELL HEMOGLOBIN CONCENTR. 34.8 g/dL (32.4-36.7); MEAN CELL VOLUME 95.9 fL (81.5-99.8); MEAN PLATELET VOLUME 9.6 fL (8.7-11.7); PLATELET CLUMPS FLAG 10 (0-99); PLATELET COUNT 210 10^3/uL (150-400); RED BLOOD CELL COUNT 5.18 10^6/uL (4.18-5.33); RED CELL DISTRIBUTION WIDTH 13.7 % (11.5-15.2)
[2016-11-14 14:33] LABS: ALANINE AMINOTRANSFERASE 40 IU/L (9-52); ALBUMIN 4.7 g/dL (3.5-5.0); ALKALINE PHOSPHATASE 157 IU/L (38-126); ANION GAP 13 mEq/L (8-16); ASPARTATE AMINOTRANSFERASE 46 IU/L (14-46); BILIRUBIN,TOTAL 0.9 mg/dL (0.1-1.4); CALCIUM 9.6 mg/dL (8.5-10.4); CARBON DIOXIDE 25 mEq/l (22-31); CHLORIDE 104 mEq/L (97-110); CREATININE 0.6 mg/dL (0.6-1.0); GLOMERULAR FILTRATION RATE > 60; GLUCOSE 166 mg/dL (70-100); SODIUM 142 mEq/L (134-144); TOTAL PROTEIN 7.7 g/dL (6.3-8.2)
[2016-11-14] MEDS ORDERED: METOCLOPRAMIDE 10 MG/2 ML VIAL IVP ONE (14:52)
[2016-11-14] MEDS ORDERED: METOCLOPRAMIDE 10 MG/2 ML VIAL ONE (14:56)
--- NOTE | 2016-11-14 17:44 | PDGENHP ---
History and Physical History and Physical: History and Physical: Chief Complaint: Nausea, vomiting, and abdominal pain History of presenting illness: This is a 71-year-old female with history of chronic pain on Methadone well known to our service presenting with recurrent intractable nausea, vomiting, and abdominal pain. She was last hospitalized with similar symptoms in September of 2016. She has not been able to tolerate anything by mouth since last night. She has not been able to tolerate her methadone since yesterday. She came to the ED today with severe abdominal pain. The pain is band like and sharp across her lower abdomen. She denies flatus. She denies any alleviating or exacerbating factors. She denies diarrhea. In the emergency department she was given a total of 2 mg of IV Dilaudid as well as Reglan Past medical history: 1. Recurrent admissions for abdominal pain last of which was August of 2016 2. Questionable history of Crohn's disease 3. 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 Chronic back pain with continuous opioid dependency 5. GERD 6. scoliosis Past surgical history: 1. Cholecystectomy 2. Appendectomy 3. History of lysis of adhesions 4. Hysterectomy 5. Breast augmentation Home medications: Were reviewed refer to [facility] for details Allergies: No known drug allergies Social history: Patient lives in [place] with her . She denies any tobacco use. She does use marijuana. She denies any alcohol. Family history: Negative for cancer or coronary artery disease Review of systems: A comprehensive 10 point review systems was done that was negative except for what was mentioned in the HPI and below. Physical Exam Selected Entries 11/14/16 16:10 Heart Rate 83 Respiratory 16 Rate O2 Sat (%) 97 Temperature (C) 36.7 C Blood Pressure 153/86 H O2 Delivery Room Air Mode GENERAL: No acute distress HEENT: Head is normocephalic atraumatic, eyes are PERRLA, ears are normal appearing, mucous membranes are moist without lesions CARDIOVASCULAR: Regular rate and rhythm; normal S1 and S2 without murmurs, rubs , clicks, gallops; there is no JVD; there is no lower extremity edema PULMONARY: Lungs are clear to auscultation bilaterally without wheezes, rales, rhonchi; respiratory effort is nonlabored without signs of acute respiratory distress. ABDOMINAL/GASTROINTESTINAL: Soft, nontender, nondistended with normoactive bowel sounds. There is no guarding or rebound tenderness. GENITOURINARY: No Lopez in place EXTREMITIES: No clubbing, cyanosis, or edema NEUROLOGIC: Cranial nerves 2-12 appear grossly intact; face symmetric; moves all other extremities; speech is slurred and slow; alert and oriented to person and place SKIN: There are no rashes; I did not examine the patient for decubiti Diagnostics: Laboratory Tests 11/14/16 11/14/16 14:00 14:00 WBC 14.24 H Hgb 17.3 H Hct 49.7 H Plt Count 210 Sodium 142 Potassium 4.0 Chloride 104 Carbon Dioxide 25 Anion Gap 13 BUN 11 Creatinine 0.6 Estimated GFR > 60 Glucose 166 H Calcium 9.6 Total Bilirubin 0.9 AST 46 ALT 40 Alkaline Phosphatase 157 H Total Protein 7.7 Albumin 4.7 Assessment: #Intractable Nausea and vomiting #Possible Methadone Withdrawal #Polycythemia hemoconcentration in the setting of dehydration #Chronic pain syndrome on Methadone Plan: -place in observation -IVF -Antiemetics and supportive care with IVF -KUB to eval for obstruction -resume Methadone if possible -repeat labs in AM
[2016-11-14] MEDS ORDERED: DOCUSATE SODIUM 100 MG CAP PO PRN (17:51)
[2016-11-14] MEDS ORDERED: ACETAMINOPHEN 325 MG TAB PO PRN (17:51)
[2016-11-14] MEDS ORDERED: PROMETHAZINE HCL 25 MG/ML INJ IVP PRN (17:52)
[2016-11-14] MEDS ORDERED: ONDANSETRON DISINTEGRATING 4 MG TAB PO PRN (17:52)
[2016-11-14] MEDS ORDERED: D5W 1/2 NS W/ 20 KCl/L 1,000 ML IV SCH (18:00)
[2016-11-14] MEDS: oxyCODONE IR 5 MG TAB PO PRN (18:52)
[2016-11-14] MEDS: METHADONE HCL 10 MG TAB PO SCH (21:30)
[2016-11-14] MEDS: sulfaSALAzine 500 MG TAB PO SCH (21:31)
[2016-11-15] MEDS: oxyCODONE IR 5 MG TAB PO PRN (03:57)
[2016-11-15] MEDS: sulfaSALAzine 500 MG TAB PO SCH ×2 (06:14→17:23)
[2016-11-15 06:15] LABS: ANION GAP 10 mEq/L (8-16); CALCIUM 8.9 mg/dL (8.5-10.4); CARBON DIOXIDE 24 mEq/l (22-31); CHLORIDE 102 mEq/L (97-110); CREATININE 0.5 mg/dL (0.6-1.0); GLOMERULAR FILTRATION RATE > 60; GLUCOSE 82 mg/dL (70-100); POTASSIUM 4.1 mEq/L (3.5-5.2); SODIUM 136 mEq/L (134-144); SPECIMEN HEMOLYSIS 125
[2016-11-15] MEDS: METHADONE HCL 10 MG TAB PO SCH (08:27)
[2016-11-15] MEDS ORDERED: PANTOPRAZOLE SODIUM 40 MG TAB PO SCH (09:00)
[2016-11-15 10:39] LABS: % IMMATURE GRANULYOCYTES 0.3 % (0.0-1.1); ABSOLUTE IMMATURE GRANULOCYTES 0.03 10^3/uL (0.00-0.10); ADD DIFF? NO; ADD MORPH? NO; ADD SCAN? NO; ATYPICAL LYMPHOCYTE FLAG 0 (0-99); FRAGMENT RBC FLAG 10 (0-99); HEMATOCRIT 48.5 % (38.0-47.0); HEMOGLOBIN 16.6 g/dL (12.6-16.3); LEFT SHIFT FLG 0 (0-99); LIPEMIA HEMOLYSIS FLAG 90 (0-99); MEAN CELL HEMOGLOBIN 33.6 pg (27.9-34.1); MEAN CELL HEMOGLOBIN CONCENTR. 34.2 g/dL (32.4-36.7); MEAN CELL VOLUME 98.2 fL (81.5-99.8); MEAN PLATELET VOLUME 10.4 fL (8.7-11.7); PLATELET CLUMPS FLAG 20 (0-99); PLATELET COUNT 200 10^3/uL (150-400); RED BLOOD CELL COUNT 4.94 10^6/uL (4.18-5.33)
[2016-11-15 12:26] VITALS: BP 139/81; PULSE 78; RESP 18; TEMP 98.2; O2SAT 94
--- NOTE | 2016-11-15 22:28 | GDS ---
DISCHARGE DIAGNOSES: 1. Nausea and vomiting, resolved. 2. Chronic opioid dependence with possible withdrawal. 3. Chronic pain on methadone. HISTORY: For details, please see dictated history and physical dated November 14, 2016. In brief, the patient is a 71-year-old female with a history of chronic pain on methadone, who presents to the [facility] department with nausea, vomiting, abdominal pain. She was in the hospital for further evalua tion. HOSPITAL COURSE: The patient was admitted to the observation unit. There was suspicion that she ma y be having withdrawal from methadone. Her outpatient methadone dose was resumed and her symptoms c ompletely resolved. Abdominal plain film was obtained, which showed no evidence of pneumoperitoneum or bowel obstruction. Constipation was noted. Her vital signs remained stable. Once her methadon e was resumed, her symptoms resolved; therefore, she was deemed stable for discharge. She will need close followup with her pain provider as well as her primary care physician. DISPOSITION: Patient is discharged home in stable condition. FOLLOWUP: 1. Dr. Julienne Davidson, primary care physician. 2. , Gastroenterology. 3. She should also follow up with her pain medicine prescriber. DISCHARGE MEDICATIONS: Please see [employer] for complete updated outpatient medication list. There are no new medications on discharge. /[id number]/MODL
[2016-11-19] MEDS ORDERED: ESTRADIOL 0.025 MG PATCH TD SCH (09:00)
== END 2016-11-15 14:02 | disposition home or self-care (01) ==
LOC: F1N 16:46
PROVIDERS: ADMIT Family Medicine; ATTEND Hospitalist
DX: R11.2 Nausea with vomiting, unspecified (principal); R10.9 Unspecified abdominal pain; G89.29 Other chronic pain; F11.20 Opioid dependence, uncomplicated
CPT/HCPCS: 74000; G0378; J1170; J2405; J2550; J2765

== ENCOUNTER 2016-12-18 13:10 | Observation (INO) | payer OTHER ==
--- NOTE | 2016-12-18 13:22 | EDPHY ---
H & P Stated Complaint: CYCLIC VOMITING SYNDROME/SEEN FREQ Time Seen by Provider: 12/18/16 13:22 Source: Patient - Personal History Current Tetanus/Diphtheria Vaccine: Yes Tetanus Vaccine Date: LESS THAN 10 YEARS - Medical/Surgical History Hx Asthma: No Hx Chronic Respiratory Disease: No Hx Diabetes: No Hx Cardiac Disease: No Hx Renal Disease: No Hx Cirrhosis: No Hx Alcoholism: No Hx HIV/AIDS: No Hx Splenectomy or Spleen Trauma: No Other PMH: multiple Bowel obstructions , opiod dependence, chronic low backpain , GERD, cholelithiasis, chronic colitis, abdominal bloating, chronic N/V, cholelithiasis, gi bleed (2010), mutiple back surgeries, scoleosis, deginerative spine diease. psh- appy, nena, hysterectomy, gi surgery, right shoulder surgery, left knee surgery, BACK SURGERY - Social History Smoking Status: Heavy smoker Constitutional: Initial Vital Signs Temperature (C) 36.5 C 12/18/16 13:15 Heart Rate 86 12/18/16 13:15 Respiratory Rate 18 12/18/16 13:15 Blood Pressure 182/96 H 12/18/16 13:15 O2 Sat (%) 96 12/18/16 13:15 O2 Delivery Mode Room Air Allergies/Adverse Reactions: No Known Allergies Allergy (Verified 12/18/16 13:12) Home Medications: Medication Instructions Recorded METHADONE HCL 12/18/16 Oxycodone HCl 12/18/16 Medical Decision Making ED Course/Re-evaluation: CHIEF COMPLAINT: Abdominal pain, nausea HISTORY OF PRESENT ILLNESS: The patient is a 71 year old female with history of cyclic vomiting and chronic pain, who presents with abdominal pain and nausea that started at 2 a.m this morning. The patient has severe wrenching. She states she has not been able to take her pain medications secondary to symptoms. The patient is on methadone. She denies hematemesis or bloody stool. REVIEW OF SYSTEMS: A 10 point review of systems was performed and is negative with the exception of the elements mentioned in the history of present illness. PHYSICAL EXAM: HR, BP, O2 Sat, RR. Temp noted General Appearance: Alert, appears uncomfortable, wrenching. Head: Atraumatic without scalp tenderness or obvious injury Eyes: Pupils equal, round, reactive to light and accommodation, EOMI, no trauma , no injection. Ears: Clear bilaterally, no perforation, normal landmarks Nose: Atraumatic, no rhinorrhea, clear. Throat: There is no erythema or exudates, no lesions, normal tonsils, mucus membranes moist. Neck: Supple, 2+ carotid upstroke, nontender, no lymphadenopathy. Respiratory: No retractions, no distress, no wheezes, and no accessory muscle use. Lungs are clear to auscultation bilaterally. Cardiovascular: Regular rate and rhythm, no murmurs, rubs, or gallops. Bilateral carotid, radial, dorsalis pedis, and posterior tibial pulses intact. Good capillary refill all extremities. Gastrointestinal: Abdomen is soft, diffuse tenderness. Musculoskeletal: Normal active ROM of all extremities, atraumatic. Neurological: Alert, appropriate, and interactive. The patient has normal DTRs and non-focal cranial nerves, motor, sensory, and cerebellar exam. Skin: No rashes, good turgor, no nodules on palpation. Past medical history: multiple Bowel obstructions , opioid dependence, chronic low back pain, GERD, cholelithiasis, chronic colitis, cholelithiasis, GI bleed ( 2010), multiple back surgeries, scoliosis, degenerative spine disease, Past surgical history: Appendectomy, cholecystectomy, hysterectomy, GI surgery, right shoulder surgery, left knee surgery, back surgery. Family history: Noncontributory. Social history: Nonsmoker. . Retired. DIFFERENTIAL DIAGNOSIS: The differential diagnosis for the patient's nausea and abdominal pain included but was not limited to cyclic vomiting syndrome, medication withdrawal, gastroenteritis, gastritis, and medication side effect. MEDICAL DECISION MAKING: The patient presents with recurrent symptoms similar to her previous cyclic vomiting syndrome. The patient is on methadone and takes oxycodone daily. She has not been able to take these medications due to nausea and wrenching. IV was established. Plan to administer IV fluids, 5mg Ketamine IV, and 4mg Zofran. Labs were ordered. Plan to reassess. 2:05 p.m.: I reevaluated the patient. She tells me she continues to have abdominal pain and nausea. The patient is requesting Dilaudid and says that it works best for her cyclic vomiting syndrome. I ordered 1mg Dilaudid IV. 2:50 p.m.: The patient's lab work in unremarkable. I reevaluated the patient. She continues to have abdominal pain and is requesting more Dilaudid. Plan to admit for further pain management. The patient was admitted to the hospitalist Dr. Holder. - Data Points Laboratory Results: Laboratory Results 12/18/16 14:00 12/18/16 13:30 12/18/16 12/18/16 12/18/16 14:00 13:30 13:30 WBC 12.75 10^3/uL H 10^3/uL REJ (3.80-9.50) RBC 5.19 10^6/uL 10^6/uL TNP (4.18-5.33) Hgb 16.9 g/dL H g/dL TNP (12.6-16.3) Hct 48.7 % H % TNP (38.0-47.0) MCV 93.8 fL fL TNP (81.5-99.8) MCH 32.6 pg pg TNP (27.9-34.1) MCHC 34.7 g/dL g/dL TNP (32.4-36.7) RDW 13.2 % % TNP (11.5-15.2) Plt Count 168 10^3/uL 10^3/uL TNP (150-400) MPV 9.6 fL fL TNP (8.7-11.7) Neut % (Auto) 87.5 % H % TNP (39.3-74.2) Lymph % (Auto) 5.7 % L % TNP (15.0-45.0) Kings % (Auto) 5.7 % % TNP (4.5-13.0) Eos % (Auto) 0.0 % L % TNP (0.6-7.6) Baso % (Auto) 0.6 % % TNP (0.3-1.7) Nucleat RBC Rel Count 0.0 % % TNP (0.0-0.2) Absolute Neuts (auto) 11.15 10^3/uL H 10^3/uL TNP (1.70-6.50) Absolute Lymphs (auto) 0.73 10^3/uL L 10^3/uL TNP (1.00-3.00) Absolute Monos (auto) 0.73 10^3/uL 10^3/uL TNP (0.30-0.80) Absolute Eos (auto) 0.00 10^3/uL L 10^3/uL TNP (0.03-0.40) Absolute Basos (auto) 0.08 10^3/uL 10^3/uL TNP (0.02-0.10) Absolute Nucleated RBC 0.00 10^3/uL 10^3/uL TNP (0-0.01) Immature Gran % 0.5 % % TNP (0.0-1.1) Immature Gran # 0.06 10^3/uL 10^3/uL TNP (0.00-0.10) Sodium 142 mEq/L mEq/L (134-144) Potassium 4.3 mEq/L mEq/L (3.5-5.2) Chloride 104 mEq/L mEq/L (97-110) Carbon Dioxide 23 mEq/l mEq/l (22-31) Anion Gap 15 mEq/L mEq/L (8-16) BUN 9 mg/dL mg/dL (7-23) Creatinine 0.5 mg/dL L mg/dL (0.6-1.0) Estimated GFR > 60 Glucose 175 mg/dL H mg/dL (70-100) Calcium 9.5 mg/dL mg/dL (8.5-10.4) Total Bilirubin 0.8 mg/dL mg/dL (0.1-1.4) Conjugated Bilirubin 0.6 mg/dL H mg/dL (0.0-0.5) Unconjugated Bilirubin 0.2 mg/dL mg/dL (0.0-1.1) AST 35 IU/L IU/L (14-46) ALT 34 IU/L IU/L (9-52) Alkaline Phosphatase 114 IU/L IU/L (38-126) Total Protein 7.7 g/dL g/dL (6.3-8.2) Albumin 4.9 g/dL g/dL (3.5-5.0) Lipase 41.0 IU/L IU/L (23-300) Medications Given: Discontinued Medications Hydromorphone HCl (Dilaudid) 1 mg IVP EDNOW ONE Stop: 12/18/16 14:07 Last Admin: 12/18/16 14:15 Dose: 1 mg Sodium Chloride (Ns) 1,000 mls @ 0 mls/hr IV ONCE ONE PRN Reason: Wide Open Stop: 12/18/16 13:26 Last Admin: 12/18/16 13:40 Dose: 1,000 mls Sodium Chloride (Ns) 1,000 mls @ 0 mls/hr IV ONCE ONE PRN Reason: Wide Open Stop: 12/18/16 13:26 Last Admin: 12/18/16 13:40 Dose: 1,000 mls Ketamine HCl (Ketamine) 5 mg IVP EDNOW ONE Stop: 12/18/16 13:26 Last Admin: 12/18/16 13:45 Dose: 5 mg Ketamine HCl (Ketamine) 5 mg IVP EDNOW ONE Stop: 12/18/16 14:06 Last Admin: 12/18/16 14:24 Dose: 5 mg Ondansetron HCl (Zofran) 4 mg IVP EDNOW ONE Stop: 12/18/16 13:26 Last Admin: 12/18/16 13:40 Dose: 4 mg Departure - Departure Disposition: [facility] Inpatient Acute Clinical Impression: Cyclic vomiting syndrome Qualifiers: Vomiting Intractability: non-intractable Nausea presence: with nausea Qualified Code(s): G43.A0 - Cyclical vomiting, not intractable Condition: Fair Referrals: DARNELL FAY [Primary Care Provider] - As per Instructions Report Scribed for: Wali Baker Report Scribed by: Sandie Blake Date of Report: 12/18/16 Time of Report: 13:32
[2016-12-18] MEDS ORDERED: KETAMINE 100 MG/10 ML SYR IVP ONE (13:25)
[2016-12-18] MEDS ORDERED: ONDANSETRON 4 MG/2 ML VIAL IVP ONE ×2 (13:25→15:30)
[2016-12-18] MEDS ORDERED: NS 1,000 ML IV ONE ×2 (13:25)
[2016-12-18 14:04] LABS: ALANINE AMINOTRANSFERASE 34 IU/L (9-52); ALBUMIN 4.9 g/dL (3.5-5.0); ALKALINE PHOSPHATASE 114 IU/L (38-126); ANION GAP 15 mEq/L (8-16); ASPARTATE AMINOTRANSFERASE 35 IU/L (14-46); BILIRUBIN,TOTAL 0.8 mg/dL (0.1-1.4); BILIRUBIN-CONJUGATED 0.6 mg/dL (0.0-0.5); BILIRUBIN-UNCONJUGATED 0.2 mg/dL (0.0-1.1); CALCIUM 9.5 mg/dL (8.5-10.4); CARBON DIOXIDE 23 mEq/l (22-31); CHLORIDE 104 mEq/L (97-110); CREATININE 0.5 mg/dL (0.6-1.0); GLOMERULAR FILTRATION RATE > 60; GLUCOSE 175 mg/dL (70-100); POTASSIUM 4.3 mEq/L (3.5-5.2); SODIUM 142 mEq/L (134-144); TOTAL PROTEIN 7.7 g/dL (6.3-8.2)
[2016-12-18] MEDS ORDERED: KETAMINE 500 MG/10 ML VIAL IVP ONE (14:05)
[2016-12-18] MEDS ORDERED: HYDROmorphONE/DILAUDID 1 MG/ML SYR IVP ONE (14:06)
[2016-12-18 14:10] LABS: % IMMATURE GRANULYOCYTES 0.5 % (0.0-1.1); ABSOLUTE IMMATURE GRANULOCYTES 0.06 10^3/uL (0.00-0.10); ADD DIFF? NO; ADD MORPH? NO; ADD SCAN? NO; ATYPICAL LYMPHOCYTE FLAG 0 (0-99); FRAGMENT RBC FLAG 0 (0-99); HEMATOCRIT 48.7 % (38.0-47.0); HEMOGLOBIN 16.9 g/dL (12.6-16.3); LEFT SHIFT FLG 0 (0-99); LIPEMIA HEMOLYSIS FLAG 90 (0-99); MEAN CELL HEMOGLOBIN 32.6 pg (27.9-34.1); MEAN CELL HEMOGLOBIN CONCENTR. 34.7 g/dL (32.4-36.7); MEAN CELL VOLUME 93.8 fL (81.5-99.8); MEAN PLATELET VOLUME 9.6 fL (8.7-11.7); PLATELET CLUMPS FLAG 10 (0-99); PLATELET COUNT 168 10^3/uL (150-400); RED BLOOD CELL COUNT 5.19 10^6/uL (4.18-5.33); RED CELL DISTRIBUTION WIDTH 13.2 % (11.5-15.2)
[2016-12-18] MEDS ORDERED: HYDROmorphONE/DILAUDID 2 MG/ML INJ IVP ONE (15:32)
[2016-12-18] MEDS ORDERED: HYDROmorphONE/DILAUDID 1 MG/ML SYR ONE (15:34)
[2016-12-18] MEDS ORDERED: ONDANSETRON 4 MG/2 ML VIAL IVP PRN (15:48)
[2016-12-18] MEDS ORDERED: ONDANSETRON DISINTEGRATING 4 MG TAB PO PRN (15:48)
[2016-12-18] MEDS ORDERED: ACETAMINOPHEN 325 MG TAB PO PRN (15:48)
[2016-12-18] MEDS ORDERED: HYDROmorphONE/DILAUDID 1 MG/ML SYR IVP PRN ×2 (15:48→15:53)
[2016-12-18] MEDS ORDERED: LORazepam 2 MG/ML INJ IVP PRN (15:48)
[2016-12-18] MEDS ORDERED: METOCLOPRAMIDE 10 MG/2 ML VIAL IVP PRN (15:52)
[2016-12-18] MEDS ORDERED: D5W 1/2 NS 1,000 ML IV SCH (16:00)
--- NOTE | 2016-12-18 16:00 | CPEKG ---
Heart Rate: 96 RR Interval: 625 P-R Interval: 200 QRSD Interval: 98 QT Interval: 404 QTC Interval: 511 P [place]: 91 QRS [place]: 63 T Wave [place]: 74 EKG Severity - ABNORMAL ECG - EKG Impression: SINUS RHYTHM EKG Impression: PROBABLE LEFT ATRIAL ABNORMALITY EKG Impression: LEFT VENTRICULAR HYPERTROPHY EKG Impression: CONSIDER ANTERIOR INFARCT EKG Impression: BORDERLINE PROLONGED QT INTERVAL EKG Impression: significant artifact obscures reading Electronically Signed By: Yoselyn Roberts 18-Dec-2016 19:42:31
[2016-12-18] MEDS ORDERED: LORazepam 2 MG/ML INJ ONE (16:03)
--- NOTE | 2016-12-18 16:33 | GHP ---
[f rep st] HISTORY AND PHYSICAL DATE OF ADMISSION: 12/18/2016 CHIEF COMPLAINT: Nausea, vomiting. HISTORY OF PRESENT ILLNESS: This is a 71-year-old female with a history of cyclic vomiting and abdo elver pain, who presents with the same. She says that her symptoms started at 2:00 a.m. this mornin g. She has had some abdominal pain, which is worse today, as well as at least a dozen episodes of e mesis. This has been nonbloody. It has been bilious. She tells me that this is very similar to he r previous presentations. She is quite uncomfortable when I am speaking with her. She had a normal bowel movement earlier today. She has had no diarrhea. PAST MEDICAL/SURGICAL HISTORY: 1. Multiple admissions for abdominal pain, the last was about 1 month ago. 2. Questionable history of Crohn's disease. 3. Questionable history of SMA syndrome. 4. Chronic back pain with continuous opiate dependency. 5. GERD. 6. Scoliosis. PAST SURGICAL HISTORY: 1. Cholecystectomy. 2. Appendectomy. 3. History of lysis of adhesions. 4. Hysterectomy. 5. Breast augmentation. MEDICATIONS: Please see medication reconciliation. ALLERGIES: No known drug allergies. FAMILY HISTORY: Negative for cancer. SOCIAL HISTORY: She lives in [place] with her . She does use marijuana. She does not drink. REVIEW OF SYSTEMS: A 10-point review of systems is conducted and is negative except per HPI. PHYSICAL EXAM: VITAL SIGNS: Blood pressure 167/80, heart rate 84, respiration rate 20, saturating 99% on room air, temperature is 37.1. GENERAL: The patient is a distressed appearing female who is actively retching. HEENT: Normocephalic, atraumatic. CARDIOVASCULAR: Regular rate and rhythm. N o murmurs, rubs, or gallops. This exam is difficult given her current clinical status. PULMONARY: Breathing rapidly. LUNGS: Clear to auscultation bilaterally. ABDOMEN: Exam is difficult, as she says it is too tender to allow me to press on it. However, when I did press it was soft. There is no rebound or guarding. It was tender. SKIN: No rash. : No Lopez. NEUROLOGIC: Alert and nneka ented x3. She is moving all extremities. PSYCHIATRIC: Normal mood and affect. LABS: White count is 12.7. Basic metabolic panel is normal. LFTs are normal. DATA: 1. I personally viewed and interpreted her EKG. It shows borderline prolonged QT interval. 2. I discussed this with Dr. Baker. 3. I reviewed her old chart. IMPRESSION/PLAN: A 71-year-old female with history of multiple episodes of abdominal pain, as well as nausea, vomiting, presents with the same. 1. Abdominal pain/nausea/vomiting: Suspect this is likely cyclic vomiting. I will get an abdomina l x-ray to eval for signs of a small-bowel obstruction, as it does sound like she may have had one i n the past. It does not seem consistent with active Crohn's disease. She has a questionable histor y of SMA syndrome as well. We will treat her asymptomatically for now, including antiemetics and IV hydration. I note that she is on methadone, and her QT interval is borderline prolonged, thus I wi ll not give her Haldol at this point. I will check another EKG in the morning, and consider Haldol tomorrow. I have given her Zofran which should be used also sparingly, Reglan, Ativan. 2. Chronic pain, on continuous narcotics: We will try to continue her methadone. For now I have g iven her IV Dilaudid as an option. 3. Dehydration: We will give her half normal saline with D5. I note that she has been hemoconcent rated today, as well as in the past. 4. Venous thromboembolism risk: She is moderate. I will give her Lovenox. /[id number]/MODL
[2016-12-18] MEDS ORDERED: oxyCODONE IR 5 MG TAB PO PRN (19:04)
[2016-12-18] MEDS ORDERED: DOCUSATE SODIUM 100 MG CAP PO PRN (19:04)
[2016-12-18] MEDS ORDERED: ESTRADIOL 0.025 MG PATCH TD SCH (19:30)
[2016-12-18 19:51] LABS: COLOR YELLOW; LEUKOCYTE ESTERASE,URINE NEGATIVE (NEGATIVE); NITRITE,URINE NEGATIVE (NEGATIVE)
[2016-12-18] MEDS: sulfaSALAzine 500 MG TAB PO SCH (20:52)
[2016-12-19] MEDS: METHADONE HCL 10 MG TAB PO SCH ×3 (00:04→11:54)
[2016-12-19 04:58] LABS: % IMMATURE GRANULYOCYTES 0.4 % (0.0-1.1); ABSOLUTE IMMATURE GRANULOCYTES 0.05 10^3/uL (0.00-0.10); ADD DIFF? NO; ADD MORPH? NO; ADD SCAN? NO; ATYPICAL LYMPHOCYTE FLAG 0 (0-99); FRAGMENT RBC FLAG 0 (0-99); HEMATOCRIT 43.3 % (38.0-47.0); HEMOGLOBIN 14.9 g/dL (12.6-16.3); LEFT SHIFT FLG 0 (0-99); LIPEMIA HEMOLYSIS FLAG 90 (0-99); MEAN CELL HEMOGLOBIN CONCENTR. 34.4 g/dL (32.4-36.7); MEAN PLATELET VOLUME 9.7 fL (8.7-11.7); PLATELET CLUMPS FLAG 0 (0-99); PLATELET COUNT 148 10^3/uL (150-400); RED BLOOD CELL COUNT 4.51 10^6/uL (4.18-5.33); RED CELL DISTRIBUTION WIDTH 13.5 % (11.5-15.2)
[2016-12-19 05:31] LABS: ALANINE AMINOTRANSFERASE 29 IU/L (9-52); ALBUMIN 3.5 g/dL (3.5-5.0); ALKALINE PHOSPHATASE 76 IU/L (38-126); ANION GAP 6 mEq/L (8-16); ASPARTATE AMINOTRANSFERASE 24 IU/L (14-46); BILIRUBIN,TOTAL 0.7 mg/dL (0.1-1.4); CALCIUM 8.2 mg/dL (8.5-10.4); CARBON DIOXIDE 27 mEq/l (22-31); CHLORIDE 104 mEq/L (97-110); CREATININE 0.5 mg/dL (0.6-1.0); GLOMERULAR FILTRATION RATE > 60; GLUCOSE 97 mg/dL (70-100); POTASSIUM 3.2 mEq/L (3.5-5.2); SODIUM 137 mEq/L (134-144); TOTAL PROTEIN 5.8 g/dL (6.3-8.2)
[2016-12-19] MEDS: sulfaSALAzine 500 MG TAB PO SCH ×2 (06:13→12:29)
[2016-12-19 07:23] VITALS: RESP 16
[2016-12-19] MEDS ORDERED: ENOXAPARIN 40 MG/0.4 ML SYR SC SCH (09:00)
[2016-12-19] MEDS ORDERED: NON-FORMULARY NEW DRUG (Omeprazole [Omeprazole] 20 MG) PO SCH (09:00)
[2016-12-19] MEDS ORDERED: PANTOPRAZOLE SODIUM 40 MG TAB PO SCH (09:00)
--- NOTE | 2016-12-19 09:10 | CPEKG ---
Heart Rate: 78 RR Interval: 769 P-R Interval: 156 QRSD Interval: 92 QT Interval: 444 QTC Interval: 506 P Lancaster: 62 QRS Lancaster: 73 T Wave Lancaster: 62 EKG Severity - BORDERLINE ECG - EKG Impression: SINUS RHYTHM EKG Impression: BORDERLINE T ABNORMALITIES, ANT-LAT LEADS EKG Impression: BORDERLINE PROLONGED QT INTERVAL Electronically Signed By: Wali Baker 19-Dec-2016 15:29:25
[2016-12-19 11:25] VITALS: BP 114/90; PULSE 82; TEMP 97.8; O2SAT 95
--- NOTE | 2016-12-19 16:53 | PDDCSUM ---
Discharge Summary Discharge Summary: Dates of service 12/18-12/19/16 Consultations: none Procedures: none Hospital course by problem; # recurrent n/v: hx of cyclical vomiting as well as recurrent sbo, no e/o sbo on exam, sxs resolved overnight, tolerating diet, no longer having n/v. Had abd xray that was unremarkable. # chronic pain/cont narcotics: continued on methadone # hx of sbo: no e/o same, hx of 5 prior abd surgeries F/u with GI who she is established with and PCP No changes made to home meds > 35 min spent in dc, more than half in face to face counseling regarding f/u care plan
[2016-12-21] MEDS ORDERED: ESTRADIOL 0.025 MG PATCH TD SCH (09:00)
== END 2016-12-19 13:35 | disposition home or self-care (01) ==
LOC: F3E 16:26
PROVIDERS: ADMIT Student in an Organized Health Care Education/Training Program; ATTEND Internal Medicine
DX: G43.A0 Cyclical vomiting, in migraine, not intractable (principal); M54.5 Low back pain; K21.9 Gastro-esophageal reflux disease without esophagitis; K52.9 Noninfective gastroenteritis and colitis, unspecified; G89.29 Other chronic pain; F11.20 Opioid dependence, uncomplicated
CPT/HCPCS: 74020; 93005; 97165; G0378; G8987; G8988; G8989; J1170; J1650; J2060; J2405; 82947-QW; 96374

== ENCOUNTER 2016-12-29 11:14 | Emergency (ER) | payer OTHER ==
[2016-12-29] MEDS ORDERED: HYDROmorphONE/DILAUDID 1 MG/ML SYR IVP ONE (11:28)
[2016-12-29] MEDS ORDERED: NS 1,000 ML IV ONE (11:28)
[2016-12-29] MEDS ORDERED: ONDANSETRON 4 MG/2 ML VIAL IVP ONE (11:28)
[2016-12-29] MEDS ORDERED: LORazepam 2 MG/ML INJ IVP ONE (11:28)
[2016-12-29] MEDS ORDERED: ONDANSETRON 4 MG/2 ML VIAL ONE (11:29)
[2016-12-29] MEDS ORDERED: HYDROmorphONE/DILAUDID 1 MG/ML SYR ONE (11:29)
[2016-12-29] MEDS ORDERED: LORazepam 2 MG/ML INJ ONE (11:29)
--- NOTE | 2016-12-29 11:31 | EDPHY ---
H & P Stated Complaint: chronic abd pain/cyclic vomiting seen fre for same - Personal History Current Tetanus/Diphtheria Vaccine: Yes Tetanus Vaccine Date: LESS THAN 10 YEARS - Medical/Surgical History Hx Asthma: No Hx Chronic Respiratory Disease: No Hx Diabetes: No Hx Cardiac Disease: No Hx Renal Disease: No Hx Cirrhosis: No Hx Alcoholism: No Hx HIV/AIDS: No Hx Splenectomy or Spleen Trauma: No Other PMH: multiple Bowel obstructions , opiod dependence, chronic low backpain , GERD, cholelithiasis, chronic colitis, abdominal bloating, chronic N/V, cholelithiasis, gi bleed (2010), mutiple back surgeries, scoleosis, deginerative spine diease. psh- appy, nena, hysterectomy, gi surgery, right shoulder surgery, left knee surgery, BACK SURGERY - Social History Smoking Status: Heavy smoker Time Seen by Provider: 12/29/16 11:24 HPI/ROS: CHIEF COMPLAINT: Nausea vomiting abdominal pain HISTORY OF PRESENT ILLNESS: 71-year-old female history of cyclic vomiting, chronic pain, on methadone therapy, presents via private vehicle complaining of abdominal pain, nausea which started . Feels similar to her prior episodes. She was admitted to the hospital approximately 10 days ago for similar. Denies hematemesis or bloody stool. Denies dizziness. Denies chest pain. Denies dyspnea. Denies urinary abnormality. PRIMARY CARE PROVIDER: REVIEW OF SYSTEMS: A ten point review of systems was performed and is negative with the exception of the items mentioned in the HPI PAST MEDICAL & SURGICAL HISTORY: Multiple abdominal surgeries. Opioid dependence. Chronic low back pain. Cholelithiasis. Recurrent small-bowel obstruction. Methadone therapy. SOCIAL HISTORY: daily smoker PHYSICAL EXAM (Prior to examination, patient consented to physical exam, hands were washed and my usual and customary physical exam procedures followed) 1) GENERAL: thin female, alert and oriented. retching 2) HEAD: Normocephalic, atraumatic 3) HEENT: Pupils equal, round, reactive to light bilaterally. Sclera anicteric. Nasopharynx, oropharynx, clear, no lesions. dry mucous membranes. Ears bilaterally with normal tympanic membranes. 4) NECK: Full range of motion, no meningeal signs. 5) LUNGS: Clear auscultation bilaterally, no wheezes, no rhonchi, no retractions. 6) HEART: Regular rate and rhythm, no murmur, no heave, no gallop. 7) ABDOMEN: No guarding, no rebound, no focal tenderness, negative McBurney's, negative Dietrich's, negative Rovsing's, negative peritoneal sign, 8) MUSCULOSKELETAL: Moving all extremities, no focal areas of tenderness, no obvious trauma. No peripheral edema or discoloration. 9) BACK: No CVA tenderness, no midline vertebral tenderness, no fluctuance, no step-off, no obvious trauma, no visual or palpable abnormality. 10) SKIN: No rash, no petechiae. 11) Psychiatric: Patient is oriented X 3, there is no agitation. DIFFERENTIAL DIAGNOSIS: My differential diagnosis includes, but is not limited to, acute exacerbation of cyclic vomiting syndrome, bowel obstruction, acute appendicitis, acute cholecystitis, bowel obstruction, acute pancreatitis, gastritis and urinary tract infection. The patient understands that this diagnosis is provisional and can never be 100% accurate. This is a partial list of diagnoses considered. These considerations are based on history, physical exam, past history and reassessment. (Lilia Julian) Constitutional: Initial Vital Signs Temperature (C) 36.7 C 12/29/16 11:18 Heart Rate 111 H 12/29/16 11:18 Respiratory Rate 26 H 12/29/16 11:18 Blood Pressure 158/98 H 12/29/16 11:18 O2 Sat (%) 94 12/29/16 11:18 O2 Delivery Mode Room Air O2 (L/minute) 6 Allergies/Adverse Reactions: No Known Allergies Allergy (Verified 12/29/16 11:17) Home Medications: Medication Instructions Recorded Docusate Sodium [Colace 100 MG (*)] 100 mg PO BID PRN 12/18/16 ESTRADIOL 0.025 mg TD Q7D 12/18/16 Methadone HCl [Methadone HCl 10 mg 20 mg PO Q6 12/18/16 (*)] Multivitamins [Multivitamin (*)] 1 tab PO DAILY 12/18/16 Omeprazole 20 mg PO DAILY 12/18/16 Ondansetron Odt [Zofran Odt 4 mg 4 mg PO Q4 PRN 12/18/16 (*)] oxyCODONE IR [Oxycodone Ir (*)] 5 mg PO Q6 PRN 12/18/16 sulfaSALAzine [Azulfidine 500 MG 500 mg PO QID 12/18/16 (*)] Acetaminophen [Tylenol 325mg (*)] 650 mg PO Q4HRS PRN #0 tab 12/19/16 Promethazine HCl [Phenergan 12.5mg 12.5 mg PO Q6H PRN #30 tablet 12/19/16 tab] Cephalexin [Keflex (*)] 500 mg PO BID 7 Days 12/29/16 Medical Decision Making - Diagnostics Imaging Results: The images reviewed by myself (Lilia Julian) ED Course/Re-evaluation: 11:30 a.m.: Old medical records reviewed. Discussed case with Dr. Modi. Patient is retching and crying and appears to be in significant discomfort. 11:50 a.m.: Patient was given Dilaudid 0.75 mg and Ativan 0.5 mg IV and re- evaluated and at this time she is sleeping, is quite somnolent. Discussed this with the patient and her he states that she did not sleep well last evening due to her repeated retching. He does not feel that she has overdosed on her narcotics. She is noted to have a lactate of 4.4. I suspect at this time that this is more than likely secondary to her intractable episodes of retching and less than likely secondary to sepsis however will provide IV fluids and re-evaluate. 2:00 p.m.: Re-evaluation. Patient also seen exam by Dr. Mari Modi. At this time the patient is sleeping, easily woken, appears comfortable. Will plan on discharge. 2:30 p.m.: Re-evaluation she is sleeping, easily woken feels comfortable being discharged home. Doubt acute surgical abdominal pathology. (Lilia Julian) Other Provider: I have evaluated and participated in the management of this patient. My co- signature indicates that I have reviewed this chart and that I agree with the findings and the plan of care as documented. My personal history and physical findings include: At the time of my evaluation she is resting comfortably. Her abdomen is soft and nontender. She is not vomiting. (Mari Modi) - Data Points Laboratory Results: Laboratory Results 12/29/16 11:36 12/29/16 11:36 Medications Given: Discontinued Medications Hydromorphone HCl (Dilaudid) 1 mg IVP EDNOW ONE Stop: 12/29/16 11:29 Last Admin: 12/29/16 11:40 Dose: 1 mg Sodium Chloride (Ns) 1,000 mls @ 0 mls/hr IV ONCE ONE PRN Reason: Wide Open Stop: 12/29/16 11:29 Last Admin: 12/29/16 11:40 Dose: 1,000 mls Sodium Chloride (Ns) 1,800 mls @ 3,600 mls/hr 30 ml/kg infuse over 30 min ( 1800 ml) IV EDNOW ONE Stop: 12/29/16 12:19 Last Admin: 12/29/16 11:57 Dose: 1,800 mls Lorazepam (Ativan Injection) 1 mg IVP EDNOW ONE Stop: 12/29/16 11:29 Last Admin: 12/29/16 11:40 Dose: 1 mg Ondansetron HCl (Zofran) 4 mg IVP EDNOW ONE Stop: 12/29/16 11:29 Last Admin: 12/29/16 11:40 Dose: 4 mg Departure - Departure Disposition: Home, Routine, Self-Care Clinical Impression: Abdominal pain, Bacteriuria Condition: Good Instructions: Urinary Tract Infection in Women (ED), Acute Abdominal Pain (ED) Additional Instructions: Seek immediate medical attention if you develop new or worsening symptoms, if you develop fevers, chills, inability to tolerate oral intake or any other symptoms that concerns you. Referrals: DARNELL FAY [Primary Care Provider] - 1 day without fail Prescriptions: Cephalexin [Keflex (*)] 500 mg PO BID 7 Days
[2016-12-29 11:45] LABS: % IMMATURE GRANULYOCYTES 0.5 % (0.0-1.1); ABSOLUTE IMMATURE GRANULOCYTES 0.07 10^3/uL (0.00-0.10); ADD DIFF? NO; ADD MORPH? NO; ADD SCAN? NO; ATYPICAL LYMPHOCYTE FLAG 0 (0-99); FRAGMENT RBC FLAG 0 (0-99); HEMATOCRIT 51.8 % (38.0-47.0); HEMOGLOBIN 17.5 g/dL (12.6-16.3); LEFT SHIFT FLG 0 (0-99); LIPEMIA HEMOLYSIS FLAG 90 (0-99); MEAN CELL HEMOGLOBIN CONCENTR. 33.8 g/dL (32.4-36.7); MEAN CELL VOLUME 97.7 fL (81.5-99.8); MEAN PLATELET VOLUME 9.4 fL (8.7-11.7); PLATELET CLUMPS FLAG 0 (0-99); PLATELET COUNT 237 10^3/uL (150-400); RED CELL DISTRIBUTION WIDTH 13.8 % (11.5-15.2)
[2016-12-29] MEDS ORDERED: NS 1,800 ML IV ONE (11:50)
[2016-12-29 12:03] LABS: PROTIME(PATIENT) 13.1 SEC (12.0-15.0)
[2016-12-29 12:04] LABS: APTT 27.5 SEC (23.0-38.0)
[2016-12-29 12:16] LABS: ALANINE AMINOTRANSFERASE 31 IU/L (9-52); ALKALINE PHOSPHATASE 122 IU/L (38-126); ANION GAP 15 mEq/L (8-16); ASPARTATE AMINOTRANSFERASE 36 IU/L (14-46); BILIRUBIN,TOTAL 0.6 mg/dL (0.1-1.4); BILIRUBIN-CONJUGATED 0.4 mg/dL (0.0-0.5); BILIRUBIN-UNCONJUGATED 0.2 mg/dL (0.0-1.1); CALCIUM 9.5 mg/dL (8.5-10.4); CARBON DIOXIDE 25 mEq/l (22-31); CHLORIDE 103 mEq/L (97-110); CREATININE 0.6 mg/dL (0.6-1.0); GLOMERULAR FILTRATION RATE > 60; GLUCOSE 143 mg/dL (70-100); POTASSIUM 4.3 mEq/L (3.5-5.2); SODIUM 143 mEq/L (134-144); TOTAL PROTEIN 7.8 g/dL (6.3-8.2)
[2016-12-29] MEDS ORDERED: IOPAMIDOL (ISOVUE-300) 100 ML BTL IV ONE (12:47)
[2016-12-29 14:35] LABS: COLOR YELLOW; LEUKOCYTE ESTERASE,URINE NEGATIVE (NEGATIVE); NITRITE,URINE NEGATIVE (NEGATIVE)
[2016-12-29 14:50] VITALS: RESP 20
[2016-12-29 14:58] LABS: BACTERIA TRACE /hpf (NONE SEEN); MUCUS TRACE /lpf (NONE-1+)
[2016-12-29 15:34] VITALS: TEMP 98.1
[2016-12-29 17:09] VITALS: BP 117/68; PULSE 79; O2SAT 95
== END 2016-12-29 17:27 | disposition home or self-care (01) ==
DX: N39.0 Urinary tract infection, site not specified (principal); B96.89 Other specified bacterial agents as the cause of diseases classified elsewhere; F17.200 Nicotine dependence, unspecified, uncomplicated; Z90.710 Acquired absence of both cervix and uterus
CPT/HCPCS: 74000; 74177; 96361; 96374; 96375; 99285; J1170; J2060; J2405; Q9967

== ENCOUNTER 2017-01-19 14:21 | Observation (INO) | payer OTHER ==
[2017-01-19] MEDS ORDERED: LORazepam 2 MG/ML INJ ONE (14:39)
--- NOTE | 2017-01-19 14:39 | EDPHY ---
H & P Time Seen by Provider: 01/19/17 14:36 HPI/ROS: CHIEF COMPLAINT: Vomiting HISTORY OF PRESENT ILLNESS: This patient is a 71 year old female with history of cyclic vomiting syndrome and chronic pain, on methadone therapy, who presents to the Emergency Department with acute intractable vomiting beginning at 0300 today. She describes her presentation as similar to prior episodes. She reports associated diffuse moderate abdominal pain. She denies fever, hematemesis, bloody stool, or urinary complaints. Medical history includes multiple bowel obstructions, appendectomy, and cholecystectomy. REVIEW OF SYSTEMS: Constitutional: No fever, no chills Eyes: No visual changes ENT: No sore throat Respiratory: No cough, no shortness of breath Cardiac: No chest pain Gastrointestinal: As in HPI Genitourinary: No hematuria, no dysuria Musculoskeletal: No leg pain or swelling Skin: No rash Neurological: No headache, no numbness, no weakness Psychiatric: No depression Past Medical/Surgical History: PMH includes: opioid dependence, chronic low back pain, cholelithiasis, chronic colitis, cyclic vomiting syndrome, GI bleed (2010), scoliosis, degenerative spine disease PSH includes: appendectomy, cholecystectomy, hysterectomy, right shoulder surgery, left knee surgery, back surgery Social History: at bedside. Smokes regularly. Smoking Status: Heavy smoker Physical Exam: General Appearance: Alert, retching, appears uncomfortable Eyes: Pupils equal and round, no conjunctival pallor or injection ENT, Mouth: Mucous membranes moist Neck: Normal inspection Respiratory: Lungs are clear to auscultation Cardiovascular: Regular rate and rhythm Gastrointestinal: Abdomen is soft, diffuse tenderness, normal bowel sounds Neurological: A&O, nonfocal, normal gait Skin: Warm and dry, no rash Extremities: Nontender, no pedal edema Psychiatric: anxious Constitutional: Initial Vital Signs Temperature (C) 36.4 C 01/19/17 14:23 Heart Rate 95 01/19/17 14:23 Respiratory Rate 24 H 01/19/17 14:23 Blood Pressure 95/62 L 01/19/17 14:23 O2 Sat (%) 99 01/19/17 14:23 O2 Delivery Mode Room Air O2 (L/minute) 8 Allergies/Adverse Reactions: No Known Allergies Allergy (Verified 12/29/16 11:17) Home Medications: Medication Instructions Recorded Docusate Sodium [Colace 100 MG (*)] 100 mg PO BID PRN 12/18/16 ESTRADIOL 0.025 mg TD Q7D 12/18/16 Methadone HCl [Methadone HCl 10 mg 20 mg PO Q6 12/18/16 (*)] Multivitamins [Multivitamin (*)] 1 tab PO DAILY 12/18/16 Omeprazole 20 mg PO DAILY 12/18/16 Ondansetron Odt [Zofran Odt 4 mg 4 mg PO Q4 PRN 12/18/16 (*)] oxyCODONE IR [Oxycodone Ir (*)] 5 mg PO Q6 PRN 12/18/16 sulfaSALAzine [Azulfidine 500 MG 500 mg PO QID 12/18/16 (*)] Acetaminophen [Tylenol 325mg (*)] 650 mg PO Q4HRS PRN #0 tab 12/19/16 Promethazine HCl [Phenergan 12.5mg 12.5 mg PO Q6H PRN #30 tablet 12/19/16 tab] Cephalexin [Keflex (*)] 500 mg PO BID 7 Days 12/29/16 Medical Decision Making ED Course/Re-evaluation: This 71-year-old female presents with acute intractable vomiting beginning at 300 similar to prior episodes of cyclic vomiting. She is retching upon presentation and appears uncomfortable. I reviewed prior medical records, including most recent visit in 12/2016 for the same complaint, confirming that the patient typically responds well to Dilaudid and Ativan to treat cyclic vomiting syndrome. She reports that she typically requires hospital admission for treatment of intractable vomiting. IV established. 1mg IV Ativan and 0.5mg IV Dilaudid administered for vomiting. 1513: On reevaluation, the patient is sleeping comfortably. Her abdomen remains soft with diffuse tenderness. 1617: The patient is waking up and moaning in pain. She is feeling very anxious. 0.5mg IV Ativan administered. Will plan for reevaluation. 175: On reevaluation, the patient continues to complain of nausea. She has vomited again since last administration of Ativan. Given this, will plan for admission. 175: Consultation with Dr. Bryant, hospitalist, who accepts admission. Differential Diagnosis: The differential diagnosis for the patient's abdominal pain and vomiting included but was not limited to SBO, appy, cholecystitis, bowel perforation, or gastroenteritis. - Data Points Laboratory Results: Laboratory Results 01/19/17 14:45 01/19/17 14:45 01/19/17 01/19/17 14:45 14:45 WBC 11.56 10^3/uL H 10^3/uL (3.80-9.50) RBC 5.04 10^6/uL 10^6/uL (4.18-5.33) Hgb 16.8 g/dL H g/dL (12.6-16.3) Hct 48.2 % H % (38.0-47.0) MCV 95.6 fL fL (81.5-99.8) MCH 33.3 pg pg (27.9-34.1) MCHC 34.9 g/dL g/dL (32.4-36.7) RDW 13.8 % % (11.5-15.2) Plt Count 178 10^3/uL 10^3/uL (150-400) MPV 9.8 fL fL (8.7-11.7) Neut % (Auto) 87.7 % H % (39.3-74.2) Lymph % (Auto) 6.6 % L % (15.0-45.0) [place] % (Auto) 4.6 % % (4.5-13.0) Eos % (Auto) 0.0 % L % (0.6-7.6) Baso % (Auto) 0.8 % % (0.3-1.7) Nucleat RBC Rel Count 0.0 % % (0.0-0.2) Absolute Neuts (auto) 10.14 10^3/uL H 10^3/uL (1.70-6.50) Absolute Lymphs (auto) 0.76 10^3/uL L 10^3/uL (1.00-3.00) Absolute Monos (auto) 0.53 10^3/uL 10^3/uL (0.30-0.80) Absolute Eos (auto) 0.00 10^3/uL L 10^3/uL (0.03-0.40) Absolute Basos (auto) 0.09 10^3/uL 10^3/uL (0.02-0.10) Absolute Nucleated RBC 0.00 10^3/uL 10^3/uL (0-0.01) Immature Gran % 0.3 % % (0.0-1.1) Immature Gran # 0.04 10^3/uL 10^3/uL (0.00-0.10) Sodium 142 mEq/L mEq/L (134-144) Potassium 4.0 mEq/L mEq/L (3.5-5.2) Chloride 104 mEq/L mEq/L (97-110) Carbon Dioxide 23 mEq/l mEq/l (22-31) Anion Gap 15 mEq/L mEq/L (8-16) BUN 8 mg/dL mg/dL (7-23) Creatinine 0.5 mg/dL L mg/dL (0.6-1.0) Estimated GFR > 60 Glucose 176 mg/dL H mg/dL (70-100) Calcium 9.5 mg/dL mg/dL (8.5-10.4) Total Bilirubin 0.9 mg/dL mg/dL (0.1-1.4) Conjugated Bilirubin 0.6 mg/dL H mg/dL (0.0-0.5) Unconjugated Bilirubin 0.3 mg/dL mg/dL (0.0-1.1) AST 38 IU/L IU/L (14-46) ALT 22 IU/L IU/L (9-52) Alkaline Phosphatase 113 IU/L IU/L (38-126) Total Protein 7.2 g/dL g/dL (6.3-8.2) Albumin 4.8 g/dL g/dL (3.5-5.0) Lipase 75.0 IU/L IU/L (23-300) Medications Given: Discontinued Medications Hydromorphone HCl (Dilaudid) 0.5 mg IVP EDNOW ONE Stop: 01/19/17 14:45 Last Admin: 01/19/17 15:09 Dose: 0.5 mg Lorazepam (Ativan Injection) 1 mg IVP EDNOW ONE Stop: 01/19/17 14:45 Last Admin: 01/19/17 15:09 Dose: 1 mg Lorazepam (Ativan Injection) 0.5 mg IVP EDNOW ONE Stop: 01/19/17 16:21 Last Admin: 01/19/17 16:34 Dose: 0.5 mg Departure - Departure Disposition: [facility] Clinical Impression: Cyclic vomiting syndrome Qualifiers: Vomiting Intractability: intractable Nausea presence: with nausea Qualified Code(s): G43.A1 - Cyclical vomiting, intractable Condition: Fair Report Scribed for: Yoselyn Roberts Report Scribed by: Elinor Lopez Date of Report: 01/19/17 Time of Report: 14:38 Physician Review and Approval Statement: 01/19/17 14:38 Portions of this note were transcribed by a behavioral medical director. I personally performed a history, physical exam, medical decision making, and confirmed accuracy of information the transcribed note.
[2017-01-19] MEDS ORDERED: HYDROmorphONE/DILAUDID 1 MG/ML SYR IVP ONE (14:44)
[2017-01-19] MEDS ORDERED: LORazepam 2 MG/ML INJ IVP ONE ×2 (14:44→16:20)
[2017-01-19 15:14] LABS: % IMMATURE GRANULYOCYTES 0.3 % (0.0-1.1); ABSOLUTE IMMATURE GRANULOCYTES 0.04 10^3/uL (0.00-0.10); ADD DIFF? NO; ADD MORPH? NO; ADD SCAN? NO; ATYPICAL LYMPHOCYTE FLAG 0 (0-99); FRAGMENT RBC FLAG 0 (0-99); HEMATOCRIT 48.2 % (38.0-47.0); HEMOGLOBIN 16.8 g/dL (12.6-16.3); LEFT SHIFT FLG 0 (0-99); LIPEMIA HEMOLYSIS FLAG 90 (0-99); MEAN CELL HEMOGLOBIN 33.3 pg (27.9-34.1); MEAN CELL HEMOGLOBIN CONCENTR. 34.9 g/dL (32.4-36.7); MEAN CELL VOLUME 95.6 fL (81.5-99.8); MEAN PLATELET VOLUME 9.8 fL (8.7-11.7); PLATELET CLUMPS FLAG 0 (0-99); PLATELET COUNT 178 10^3/uL (150-400); RED BLOOD CELL COUNT 5.04 10^6/uL (4.18-5.33); RED CELL DISTRIBUTION WIDTH 13.8 % (11.5-15.2)
[2017-01-19 15:24] LABS: ALANINE AMINOTRANSFERASE 22 IU/L (9-52); ALBUMIN 4.8 g/dL (3.5-5.0); ALKALINE PHOSPHATASE 113 IU/L (38-126); ANION GAP 15 mEq/L (8-16); ASPARTATE AMINOTRANSFERASE 38 IU/L (14-46); BILIRUBIN,TOTAL 0.9 mg/dL (0.1-1.4); BILIRUBIN-CONJUGATED 0.6 mg/dL (0.0-0.5); BILIRUBIN-UNCONJUGATED 0.3 mg/dL (0.0-1.1); CALCIUM 9.5 mg/dL (8.5-10.4); CARBON DIOXIDE 23 mEq/l (22-31); CHLORIDE 104 mEq/L (97-110); CREATININE 0.5 mg/dL (0.6-1.0); GLOMERULAR FILTRATION RATE > 60; GLUCOSE 176 mg/dL (70-100); SODIUM 142 mEq/L (134-144); TOTAL PROTEIN 7.2 g/dL (6.3-8.2)
[2017-01-19] MEDS ORDERED: NS 1,000 ML IV ONE ×2 (19:31→21:05)
[2017-01-19] MEDS ORDERED: LORazepam 2 MG/ML INJ IVP PRN (20:58)
[2017-01-19] MEDS ORDERED: PROMETHAZINE HCL 25 MG SUPPR PR PRN (20:58)
[2017-01-19] MEDS ORDERED: morphINE PCA 30 MG/30 ML PCA IV PRN (21:20)
[2017-01-19] MEDS ORDERED: NALOXONE HCL 0.4 MG/ML INJ IVP PRN (21:20)
[2017-01-19] MEDS ORDERED: ACETAMINOPHEN 325 MG TAB PO PRN (21:26)
[2017-01-19] MEDS ORDERED: ONDANSETRON 4 MG/2 ML VIAL IVP PRN (21:26)
[2017-01-19] MEDS: ONDANSETRON 4 MG/2 ML VIAL IVP SCH (22:35)
[2017-01-19] MEDS: NS 1,000 ML IV SCH (22:43)
--- NOTE | 2017-01-19 23:10 | PDGENHP ---
History and Physical History and Physical: HISTORY AND PHYSICAL CC:Nausea vomiting and pain HISTORY: This patient with a long history of chronic pain syndrome and with history of cyclic vomiting syndrome, comes into the hospital tonight with intractable vomiting that started approximately 36 hours ago. She has been having bowel movements. There is no blood in her emesis or other sign of bleeding. There is no fever. She has not eaten any suspicious food had any travel that would trigger this. She has had numerous hospital stays and ER visits for similar syndrome. She feels very dehydrated and she has been unable to take her chronic pain medicine which is methadone taken twice daily. It should be noted that at this time the medical history including social family and past medical history and review of systems is limited and may be incomplete as the patient is too uncomfortable to want to engage in conversation with me and does not answer all my questions. ROS: A comprehensive 10 system review revealed no other significant findings PAST MEDICAL HISTORY: Cyclic vomiting syndrome Chronic abdominal pain on chronic prescribed daily narcotic with methadone Cholecystectomy appendectomy and lysis of adhesions for an obstruction Hysterectomy Breast augmentation There has been a stated history of Crohn's disease and SMA syndrome but nothing to substantiate those in our current record data bank Scoliosis FAMILY MEDICAL HISTORY: no abdominal or digestive illnesses SOCIAL HISTORY: [place] . Previous records have shown that she uses marijuana but no alcohol. At this point I am unable to get enough conversation with her to ask her about marijuana use. MEDICATIONS: The patients list has been reconciled by our clinical pharmacist in the EMR. I have reviewed the list and ordered appropriate medicines. PHYSICAL EXAMINATION: Vital Signs:Some hypertension otherwise stable without fever Examination: General: appears very much to be in pain and says she is quite nauseous. She mumbles but I am able to understand most of what she says. She does not look at me and does not really participate in examination. She looks fairly uncomfortable overall. Skin: warm, dry, good color, no rash No jaundice HEENT: normal Neck: no mass or jvd Resps: relaxed Lungs: clear breath sounds Heart: regular, no murmur Abdomen: soft, nondistended, nontender, +BS, no mass Upper Extremities: normal Lower Extremities: no edema, heel cementer machine IV site: looks normal LABORATORY DATA: white blood cell count 18966 hemoglobin is elevated a bit at 16 Glucose in the 170s ASSESSMENT: # Acute exacerbation of cyclic vomiting syndrome with intractable vomiting # Dehydration due to the above and likely exacerbating the symptoms # Could have acute narcotic withdrawal as well which would aggravate her above symptoms also # Chronic prescribed methadone use twice daily for chronic abdominal pain syndrome # Previous records indicating marijuana use which could certainly be a trigger for cyclic vomiting syndrome episodes ; I am unable to assess her current and recent marijuana use at this time PLANS: - aggressive IV hydration -Aggressive antiemetics -APPAREL STOCK CHECKER narcotic analgesic until she can take her methadone -It would be useful to review her marijuana use when she is feeling well enough to engage in the conversation, as this is a common trigger for intractable vomiting symptoms in such patients I have reviewed the patient's case in detail with Dr. Dr. Yoselyn Roberts I have reviewed the patient's past medical records as part of this assessment, including previous hospital admission records
[2017-01-19] MEDS ORDERED: ESTRADIOL 0.025 MG PATCH TD SCH (23:15)
[2017-01-20] MEDS: ONDANSETRON 4 MG/2 ML VIAL IVP SCH ×4 (02:05→14:04)
[2017-01-20] MEDS: NS 1,000 ML IV SCH ×3 (03:35→14:03)
[2017-01-20] MEDS: sulfaSALAzine 500 MG TAB PO SCH ×3 (05:45→15:50)
[2017-01-20 05:47] LABS: ANION GAP 7 mEq/L (8-16); CALCIUM 7.6 mg/dL (8.5-10.4); CARBON DIOXIDE 27 mEq/l (22-31); CHLORIDE 107 mEq/L (97-110); CREATININE 0.5 mg/dL (0.6-1.0); GLOMERULAR FILTRATION RATE > 60; GLUCOSE 94 mg/dL (70-100); POTASSIUM 3.5 mEq/L (3.5-5.2); SODIUM 141 mEq/L (134-144)
[2017-01-20] MEDS ORDERED: ENOXAPARIN 40 MG/0.4 ML SYR SC SCH (09:00)
[2017-01-20] MEDS: METHADONE HCL 10 MG TAB PO SCH ×2 (10:10→15:50)
--- NOTE | 2017-01-20 12:52 | HOSPPROG ---
Hospitalist Progress Note Assessment/Plan: 71y female with c/o N/V. This is my first encounter. Chart reviewed. # Acute exacerbation of cyclic vomiting syndrome with intractable vomiting a bit better, pt resting # Dehydration due to the above and likely exacerbating the symptoms cont fluids # Could have acute narcotic withdrawal as well which would aggravate her above symptoms also restart meds when able # Chronic prescribed methadone use twice daily for chronic abdominal pain syndrome on [employer] # Previous records indicating marijuana use which could certainly be a trigger for cyclic vomiting syndrome episodes will review with her PLANS: - aggressive IV hydration -Aggressive antiemetics -[employer] narcotic analgesic until she can take her methadone -It would be useful to review her marijuana use when she is feeling well enough to engage in the conversation, as this is a common trigger for intractable vomiting symptoms in such patients Subjective: Sleeping, arousable. Not feeling well. Objective: Vital Signs Temp Pulse Resp BP Pulse Ox 36.9 C 77 17 127/62 H 98 01/20/17 08:00 01/20/17 08:00 01/20/17 08:00 01/20/17 08:00 01/20/17 08:00 Laboratory Results 01/20/17 04:45 01/19/17 01/20/17 01/21/17 05:59 05:59 05:59 Intake Total 1000 Balance 1000 - Physical Exam Constitutional: appears nourished, not in pain, chronically ill appearing Eyes: PERRL, anicteric sclera, EOMI Ears, Nose, Mouth, Throat: moist mucous membranes, hearing normal, ears appear normal Cardiovascular: No JVD, No tachycardia, No edema Respiratory: no respiratory distress, no rales or rhonchi, reduced air movement Gastrointestinal: No tenderness, No ascites, No guarding Skin: warm, normal color, No erythema Musculoskeletal: no joint effusions, pain with ROM, generalized weakness Psychiatric: interacting appropriately, not anxious, poor insight, poor judgement ICD10 Worksheet Patient Problems: Problems Problem Status Onset Abdominal pain Acute opiod Active Opiate dependence, continuous Acute Acute encephalopathy Acute Leukocytosis Acute Vomiting Acute Bowel obstruction Acute Abdominal pain Acute Nausea Acute Acute abdominal pain Acute Nausea & vomiting Acute Cyclical vomiting syndrome Acute Intractable vomiting Acute Cyclic vomiting syndrome Acute
[2017-01-20 16:04] VITALS: BP 114/65; PULSE 72; RESP 16; TEMP 98.2; O2SAT 90
--- NOTE | 2017-01-20 23:29 | GDS ---
[f rep st] DISCHARGE SUMMARY DISCHARGE DIAGNOSES: 1. Acute exacerbation of cyclic vomiting syndrome. 2. Dehydration. 3. Chronic narcotic dependency. HOSPITAL COURSE: This pleasant is a 71-year-old female, with multiple visits to the hospital second carola to chronic cyclic vomiting. She presented to the emergency room with complaints of vomiting and inability to maintain her medication regimen. She was treated with aggressive IV hydration, as well as antiemetics and [employer]ING [employer]. Her symptoms have significantly improved. She is tolerating clear liquids and able to maintain her normal medication regimen. She is eager to be discharged home and will fol low up in the outpatient setting with her primary care physician. There are no pending studies. DISCHARGE MEDICATIONS: Please refer to EMR form. I have not provided the patient any prescriptions at the time of disposition nor adjusted any of her previously prescribed home medications to the be st of my knowledge. DISCHARGE INSTRUCTIONS: Followup will be with her primary care physician. /[id number]/MODL
== END 2017-01-20 17:57 | disposition home or self-care (01) ==
LOC: INTOOBSV 17:59 → F3E 19:37
PROVIDERS: ADMIT Internal Medicine; ATTEND Internal Medicine
DX: G43.A0 Cyclical vomiting, in migraine, not intractable (principal); E86.0 Dehydration; G89.29 Other chronic pain; F11.20 Opioid dependence, uncomplicated
CPT/HCPCS: G0378; J1170; J1650; J2060; J2270; J2405; 96374

== ENCOUNTER 2017-02-10 06:33 | Emergency (ER) | payer OTHER ==
[2017-02-10] MEDS ORDERED: NS 1,000 ML IV ONE (06:40)
[2017-02-10] MEDS ORDERED: ONDANSETRON 4 MG/2 ML VIAL IVP ONE (06:40)
[2017-02-10] MEDS ORDERED: LORazepam 2 MG/ML INJ IVP ONE (06:41)
[2017-02-10 06:49] LABS: COLOR PALE YELLOW; LEUKOCYTE ESTERASE,URINE NEGATIVE (NEGATIVE); NITRITE,URINE NEGATIVE (NEGATIVE)
--- NOTE | 2017-02-10 06:56 | EDPHY ---
HPI/HX/ROS/PE/MDM Narrative: CHIEF COMPLAINT: Vomiting HPI: The patient is a 71 y/o female with a history of cyclic vomiting and chronic pain arriving with her complaining of persistent nausea and vomiting onset this morning. This is her 9th visit to this ED for the same complaint and she was most recently admitted on 01/19/17 for persistent vomiting. She was unable to take her methadone dose or anything else orally once symptoms began. Her states normally if she is able to keep down Zofran at symptom onset, they can avoid coming into the ED. She is currently sleeping after medication administration and noncontributory to history at this time. REVIEW OF SYSTEMS: Aside from elements discussed in the HPI, a comprehensive 10-point review of systems was reviewed and is negative. 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 Prior medical records reviewed including admission 01/19/17 for the same complaint. SOCIAL HISTORY: Lives in [place]. , at bedside. PHYSICAL EXAM: General:Patient is alert, in no acute distress. ENT:Eyes are normal to inspection. ENT inspection normal. Neck: Normal inspection. Full range of motion. Respiratory:No respiratory distress. Breath sounds normal bilaterally. Cardiovascular: Regular rate and rhythm. Strong peripheral pulses. Normal cap refill. Abdomen:The abdomen is nontender to palpation. There are no peritoneal signs. There are normal bowel sounds. Back: Normal to inspection. No tenderness to palpation. Skin: Normal color. No rash. Warm and dry. Extremities: Normal appearance. Full range of motion. Neuro: Oriented x3. Normal motor function. Normal sensory function. ED Course: IV established. Labs drawn including CBC, CHEM, lipase, LFTs, PTPTT, lactate. UA ordered. 1L IV NS, 1mg IV Ativan, and 4mg IV Zofran administered for symptoms. Patient's symptoms improved with medication. Her labs are largely unremarkable. She has been sleeping here uneventfully for several hours now. Her abdomen is benign. She will be discharged home with her with instructions to use her home Zofran as needed for nausea and vomiting. Recommended follow up with PCP for continued symptoms. Return precautions given. She is comfortable with this plan. MDM: This patient presents with exacerbation of cyclic vomiting, made worse by inability to take oral methadone, causing opiate withdrawal. She has frequent ED visits related to same. She was treated with IV hydration, antiemetics and rest. After approximately five hours in the ED, the patient feels much better and wants to go home. I doubt acute abdomen, sepsis or bowel obstruction. - Data Points Laboratory Results: Laboratory Results 02/10/17 06:58 02/10/17 06:58 02/10/17 02/10/17 02/10/17 07:02 06:58 06:58 WBC RBC Hgb Hct MCV MCH MCHC RDW Plt Count MPV Neut % (Auto) Lymph % (Auto) [place] % (Auto) Eos % (Auto) Baso % (Auto) Nucleat RBC Rel Count Absolute Neuts (auto) Absolute Lymphs (auto) Absolute Monos (auto) Absolute Eos (auto) Absolute Basos (auto) Absolute Nucleated RBC Immature Gran % Immature Gran # PT 12.2 SEC SEC (12.0-15.0) INR 0.91 (0.83-1.16) APTT 22.5 SEC L SEC (23.0-38.0) VBG Lactic Acid 2.6 mmol/L H mmol/L (0.7-2.1) Sodium 144 mEq/L mEq/L (134-144) Potassium 3.2 mEq/L L mEq/L (3.5-5.2) Chloride 106 mEq/L mEq/L (97-110) Carbon Dioxide 26 mEq/l mEq/l (22-31) Anion Gap 12 mEq/L mEq/L (8-16) BUN 8 mg/dL mg/dL (7-23) Creatinine 0.6 mg/dL mg/dL (0.6-1.0) Estimated GFR > 60 Glucose 136 mg/dL H mg/dL (70-100) Calcium 9.4 mg/dL mg/dL (8.5-10.4) Total Bilirubin 1.0 mg/dL mg/dL (0.1-1.4) Conjugated Bilirubin 0.5 mg/dL mg/dL (0.0-0.5) Unconjugated Bilirubin 0.5 mg/dL mg/dL (0.0-1.1) AST 23 IU/L IU/L (14-46) ALT 25 IU/L IU/L (9-52) Alkaline Phosphatase 116 IU/L IU/L (38-126) Total Protein 7.3 g/dL g/dL (6.3-8.2) Albumin 4.7 g/dL g/dL (3.5-5.0) Lipase 70.0 IU/L IU/L (23-300) Urine Color Urine Appearance Urine pH Ur Specific [place] Urine Protein Urine Ketones Urine Blood Urine Nitrate Urine Bilirubin Urine Urobilinogen Ur Leukocyte Esterase Urine Glucose 02/10/17 02/10/17 06:58 06:44 WBC 12.49 10^3/uL H 10^3/uL (3.80-9.50) RBC 5.03 10^6/uL 10^6/uL (4.18-5.33) Hgb 16.9 g/dL H g/dL (12.6-16.3) Hct 48.6 % H % (38.0-47.0) MCV 96.6 fL fL (81.5-99.8) MCH 33.6 pg pg (27.9-34.1) MCHC 34.8 g/dL g/dL (32.4-36.7) RDW 14.1 % % (11.5-15.2) Plt Count 208 10^3/uL 10^3/uL (150-400) MPV 9.5 fL fL (8.7-11.7) Neut % (Auto) 60.6 % % (39.3-74.2) Lymph % (Auto) 25.0 % % (15.0-45.0) C[place]shaw % (Auto) 9.0 % % (4.5-13.0) Eos % (Auto) 4.2 % % (0.6-7.6) Baso % (Auto) 1.0 % % (0.3-1.7) Nucleat RBC Rel Count 0.0 % % (0.0-0.2) Absolute Neuts (auto) 7.56 10^3/uL H 10^3/uL (1.70-6.50) Absolute Lymphs (auto) 3.12 10^3/uL H 10^3/uL (1.00-3.00) Absolute Monos (auto) 1.12 10^3/uL H 10^3/uL (0.30-0.80) Absolute Eos (auto) 0.53 10^3/uL H 10^3/uL (0.03-0.40) Absolute Basos (auto) 0.13 10^3/uL H 10^3/uL (0.02-0.10) Absolute Nucleated RBC 0.00 10^3/uL 10^3/uL (0-0.01) Immature Gran % 0.2 % % (0.0-1.1) Immature Gran # 0.03 10^3/uL 10^3/uL (0.00-0.10) PT INR APTT VBG Lactic Acid Sodium Potassium Chloride Carbon Dioxide Anion Gap BUN Creatinine Estimated GFR Glucose Calcium Total Bilirubin Conjugated Bilirubin Unconjugated Bilirubin AST ALT Alkaline Phosphatase Total Protein Albumin Lipase Urine Color PALE YELLOW Urine Appearance CLEAR Urine pH 8.0 H (5.0-7.5) Ur Specific [place] 1.006 (1.002-1.030) Urine Protein NEGATIVE (NEGATIVE) Urine Ketones NEGATIVE (NEGATIVE) Urine Blood NEGATIVE (NEGATIVE) Urine Nitrate NEGATIVE (NEGATIVE) Urine Bilirubin NEGATIVE (NEGATIVE) Urine Urobilinogen NEGATIVE EU EU (0.2-1.0) Ur Leukocyte Esterase NEGATIVE (NEGATIVE) Urine Glucose NEGATIVE (NEGATIVE) Medications Given: Discontinued Medications Sodium Chloride (Ns) 1,000 mls @ 0 mls/hr IV ONCE ONE PRN Reason: Wide Open Stop: 02/10/17 06:41 Last Admin: 02/10/17 07:01 Dose: 1,000 mls Lorazepam (Ativan Injection) 1 mg IVP EDNOW ONE Stop: 02/10/17 06:42 Last Admin: 02/10/17 07:01 Dose: 1 mg Ondansetron HCl (Zofran) 4 mg IVP EDNOW ONE Stop: 02/10/17 06:41 Last Admin: 02/10/17 07:02 Dose: 4 mg General Initial Vital Signs: Initial Vital Signs Heart Rate 91 02/10/17 06:34 Respiratory Rate 20 02/10/17 06:34 Blood Pressure 138/108 H 02/10/17 06:34 O2 Sat (%) 96 02/10/17 06:34 O2 Delivery Mode Room Air Allergies/Adverse Reactions: No Known Allergies Allergy (Verified 12/29/16 11:17) Home Medications: Medication Instructions Recorded Docusate Sodium [Colace 100 MG (*)] 100 mg PO BID 01/19/17 Estradiol [Climara] 0.025 mg TD Q7D 01/19/17 Methadone HCl [Methadone HCl 10 mg 20 mg PO TID 01/19/17 (*)] Multivitamins [Multivitamin (*)] 1 each PO DAILY 01/19/17 Omeprazole [Prilosec 20 mg] 20 mg PO DAILY 01/19/17 Ondansetron Odt [Zofran Odt 4 mg 4 mg PO Q4 PRN 01/19/17 (*)] oxyCODONE IR [Oxycodone Ir (*)] 5 - 10 mg PO Q6 PRN 01/19/17 sulfaSALAzine [Sulfasalazine] 500 mg PO QID 01/19/17 Acetaminophen [Tylenol 325mg (*)] 650 mg PO Q4HRS PRN #0 tab 01/20/17 Departure - Departure Disposition: Home, Routine, Self-Care Clinical Impression: Cyclic vomiting syndrome Qualifiers: Vomiting Intractability: non-intractable Nausea presence: with nausea Qualified Code(s): G43.A0 - Cyclical vomiting, not intractable Condition: Good Instructions: Acute Nausea and Vomiting (ED) Additional Instructions: 1. Use your Zofran as prescribed when needed for nausea and vomiting. 2. Follow up with your primary care provider for continued symptoms through the weekend. 3. Return to the ED for severe pain, inability to drink water, or other worsening of condition. Referrals: Patient,NotPresent [Primary Care Provider] - As per Instructions Del Tejada MD [Medical Doctor] - As per Instructions Report Scribed for: Alec Rodriges Report Scribed by: Ree Rodriguez Date of Report: 02/10/17 Time of Report: 06:56 Physician Review and Approval Statement: Portions of this note were transcribed by an ED scribe. I personally performed the history, physical exam, and medical decision making; and confirm the accuracy of the information in the transcribed note.
[2017-02-10 07:06] LABS: % IMMATURE GRANULYOCYTES 0.2 % (0.0-1.1); ABSOLUTE IMMATURE GRANULOCYTES 0.03 10^3/uL (0.00-0.10); ADD DIFF? NO; ADD MORPH? NO; ADD SCAN? NO; ATYPICAL LYMPHOCYTE FLAG 0 (0-99); FRAGMENT RBC FLAG 0 (0-99); HEMATOCRIT 48.6 % (38.0-47.0); HEMOGLOBIN 16.9 g/dL (12.6-16.3); LEFT SHIFT FLG 0 (0-99); LIPEMIA HEMOLYSIS FLAG 90 (0-99); MEAN CELL HEMOGLOBIN 33.6 pg (27.9-34.1); MEAN CELL HEMOGLOBIN CONCENTR. 34.8 g/dL (32.4-36.7); MEAN CELL VOLUME 96.6 fL (81.5-99.8); MEAN PLATELET VOLUME 9.5 fL (8.7-11.7); PLATELET CLUMPS FLAG 0 (0-99); PLATELET COUNT 208 10^3/uL (150-400); RED BLOOD CELL COUNT 5.03 10^6/uL (4.18-5.33); RED CELL DISTRIBUTION WIDTH 14.1 % (11.5-15.2)
[2017-02-10 07:16] LABS: INR 0.91 (0.83-1.16); PROTIME(PATIENT) 12.2 SEC (12.0-15.0)
[2017-02-10 07:17] LABS: APTT 22.5 SEC (23.0-38.0)
[2017-02-10 07:21] LABS: ANION GAP 12 mEq/L (8-16); CARBON DIOXIDE 26 mEq/l (22-31); CHLORIDE 106 mEq/L (97-110); GLUCOSE 136 mg/dL (70-100); POTASSIUM 3.2 mEq/L (3.5-5.2); SODIUM 144 mEq/L (134-144)
[2017-02-10 07:22] LABS: ALANINE AMINOTRANSFERASE 25 IU/L (9-52); ALBUMIN 4.7 g/dL (3.5-5.0); ALKALINE PHOSPHATASE 116 IU/L (38-126); ASPARTATE AMINOTRANSFERASE 23 IU/L (14-46); BILIRUBIN-CONJUGATED 0.5 mg/dL (0.0-0.5); BILIRUBIN-UNCONJUGATED 0.5 mg/dL (0.0-1.1); CALCIUM 9.4 mg/dL (8.5-10.4); CREATININE 0.6 mg/dL (0.6-1.0); GLOMERULAR FILTRATION RATE > 60; TOTAL PROTEIN 7.3 g/dL (6.3-8.2)
[2017-02-10 13:59] VITALS: RESP 16
[2017-02-10 14:03] VITALS: BP 109/72; PULSE 75; TEMP 97.7; O2SAT 94
== END 2017-02-10 14:03 | disposition home or self-care (01) ==
DX: G43.A0 Cyclical vomiting, in migraine, not intractable (principal)
CPT/HCPCS: 96361; 96374; 96375; 99284; J2060; J2405

== ENCOUNTER 2017-02-28 07:58 | Observation (INO) | payer OTHER ==
--- NOTE | 2017-02-28 08:29 | EDPHY ---
H & P Time Seen by Provider: 02/28/17 08:26 HPI/ROS: Chief complaint. Vomiting HPI. 71-year-old female presents emergency department with vomiting. She has a history of cyclic vomiting and chronic pain. This is her 10th visit for similar complaints. Last seen February 10 for same. She tells me that she developed generalized abdominal pain and vomiting at 5:00 a.m.. She said it is similar to previous symptoms. She describes only as"pain". No diarrhea. No fever. She has chronic abdominal pain and opioid dependence. She does have a history of bowel obstruction. ROS Constitutional. no fever/chills, no weakness Eyes. no problems with vision ENT. no sore throat, no nasal drainage Cardiovascular. no chest pain Respiratory. no shortness of breath, no cough Abdominal. Vomiting and abdominal pain . no problems urinating MS. no calf pain/swelling, no neck/back pain, no joint pain Skin. no rash Lymph. no swollen glands Neuro. no headache, no dizziness, no difficulty walking or with speech Past Medical/Surgical History: Past medical history bowel obstructions, opioid dependence, chronic pain, GERD, colitis, multiple back surgeries. Status post appendectomy, cholecystectomy, hysterectomy, orthopedic surgeries Social History: , daily smoker, no alcohol Smoking Status: Heavy smoker Physical Exam: General Appearance: Alert well-developed female moderate distress vital signs stable though initial blood pressure 191/109 Eyes: Pupils equal and round no pallor or injection. ENT, Mouth: Mucous membranes are moist. Respiratory: There are no retractions, lungs are clear to auscultation. Cardiovascular: Regular rate and rhythm. Gastrointestinal: Abdomen is soft diffusely tender. No masses. Normal bowel sounds Neurological: Awake and alert, sensory and motor exams grossly normal. Skin: Warm and dry, no rashes. Musculoskeletal: Neck is supple nontender. Extremities symmetrical, full range of motion. Psychiatric: Patient is oriented X 3, there is no agitation. Constitutional: Initial Vital Signs Temperature (C) 36.8 C 02/28/17 08:01 Heart Rate 95 02/28/17 08:01 Respiratory Rate 18 02/28/17 08:01 Blood Pressure 191/109 H 02/28/17 08:01 O2 Sat (%) 91 L 02/28/17 08:01 O2 Delivery Mode Room Air O2 (L/minute) 2 Allergies/Adverse Reactions: No Known Allergies Allergy (Verified 02/28/17 08:00) Home Medications: Medication Instructions Recorded Docusate Sodium [Colace 100 MG (*)] 100 mg PO BID 01/19/17 Estradiol [Climara] 0.025 mg TD Q7D 01/19/17 Methadone HCl [Methadone HCl 10 mg 20 mg PO TID 01/19/17 (*)] Multivitamins [Multivitamin (*)] 1 each PO DAILY 01/19/17 Omeprazole [Prilosec 20 mg] 20 mg PO DAILY 01/19/17 Ondansetron Odt [Zofran Odt 4 mg 4 mg PO Q4 PRN 01/19/17 (*)] oxyCODONE IR [Oxycodone Ir (*)] 5 - 10 mg PO Q6 PRN 01/19/17 sulfaSALAzine [Sulfasalazine] 500 mg PO QID 01/19/17 Acetaminophen [Tylenol 325mg (*)] 650 mg PO Q4HRS PRN #0 tab 01/20/17 Medical Decision Making - Diagnostics Imaging Results: Imaging Impressions Abdomen X-Ray 02/28/17 08:38 Impression: Severe constipation. One-view abdominal x-ray reviewed by me and discussed with Dr. Whyte shows severe constipation but no evidence of free air or air-fluid level Procedures: IV normal saline. IV Reglan, Benadryl, Ativan and 1 L of saline ED Course/Re-evaluation: Re-evaluation 10:25 a.m. patient is resting comfortably without vomiting Re-evaluation at 11:45 a.m. patient has been up to the bathroom to urinate. No vomiting. She and I discussed laboratory evaluation, treatment plan including criteria for return importance of follow-up further evaluation. She expresses understanding and agreement 1:00 p.m. just prior to discharge patient throws up 1 more time. She is given further IV Zofran Recheck again at 135. Patient stable though a little hypoxic but no further vomiting. She is on oxygen supplementation Re-evaluation 220. Patient continues to be nauseated. No vomiting. The patient , her and I discussed the treatment plan including recommendation for admission. They express agreement I consulted and discussed case with Dr. whitt, hospitalist, who agrees to the admission Differential Diagnosis: I have considered cyclic vomiting, exacerbation of chronic pain constipation, bowel obstruction. - Data Points Laboratory Results: Laboratory Results 02/28/17 09:10 02/28/17 09:10 02/28/17 02/28/17 09:10 09:10 WBC 15.47 10^3/uL H 10^3/uL (3.80-9.50) RBC 5.15 10^6/uL 10^6/uL (4.18-5.33) Hgb 17.1 g/dL H g/dL (12.6-16.3) Hct 49.1 % H % (38.0-47.0) MCV 95.3 fL fL (81.5-99.8) MCH 33.2 pg pg (27.9-34.1) MCHC 34.8 g/dL g/dL (32.4-36.7) RDW 13.3 % % (11.5-15.2) Plt Count 268 10^3/uL 10^3/uL (150-400) MPV 9.2 fL fL (8.7-11.7) Neut % (Auto) 87.2 % H % (39.3-74.2) Lymph % (Auto) 6.3 % L % (15.0-45.0) [place] % (Auto) 5.1 % % (4.5-13.0) Eos % (Auto) 0.3 % L % (0.6-7.6) Baso % (Auto) 0.6 % % (0.3-1.7) Nucleat RBC Rel Count 0.0 % % (0.0-0.2) Absolute Neuts (auto) 13.48 10^3/uL H 10^3/uL (1.70-6.50) Absolute Lymphs (auto) 0.98 10^3/uL L 10^3/uL (1.00-3.00) Absolute Monos (auto) 0.79 10^3/uL 10^3/uL (0.30-0.80) Absolute Eos (auto) 0.04 10^3/uL 10^3/uL (0.03-0.40) Absolute Basos (auto) 0.10 10^3/uL 10^3/uL (0.02-0.10) Absolute Nucleated RBC 0.00 10^3/uL 10^3/uL (0-0.01) Immature Gran % 0.5 % % (0.0-1.1) Immature Gran # 0.08 10^3/uL 10^3/uL (0.00-0.10) Sodium 141 mEq/L mEq/L (134-144) Potassium 3.6 mEq/L mEq/L (3.5-5.2) Chloride 104 mEq/L mEq/L (97-110) Carbon Dioxide 22 mEq/l mEq/l (22-31) Anion Gap 15 mEq/L mEq/L (8-16) BUN 8 mg/dL mg/dL (7-23) Creatinine 0.6 mg/dL mg/dL (0.6-1.0) Estimated GFR > 60 Glucose 165 mg/dL H mg/dL (70-100) Calcium 9.8 mg/dL mg/dL (8.5-10.4) Total Bilirubin 1.1 mg/dL mg/dL (0.1-1.4) Conjugated Bilirubin 0.5 mg/dL mg/dL (0.0-0.5) Unconjugated Bilirubin 0.6 mg/dL mg/dL (0.0-1.1) AST 26 IU/L IU/L (14-46) ALT 27 IU/L IU/L (9-52) Alkaline Phosphatase 113 IU/L IU/L (38-126) Total Protein 7.6 g/dL g/dL (6.3-8.2) Albumin 5.0 g/dL g/dL (3.5-5.0) Lipase 57.0 IU/L IU/L (23-300) Medications Given: Discontinued Medications Diphenhydramine HCl (Benadryl Injection) 25 mg IVP EDNOW ONE Stop: 02/28/17 08:38 Last Admin: 02/28/17 09:20 Dose: 25 mg Sodium Chloride (Ns) 1,000 mls @ 0 mls/hr IV ONCE ONE; Wide Open PRN Reason: Protocol Stop: 02/28/17 08:38 Last Admin: 02/28/17 09:21 Dose: 1,000 mls Famotidine/Sodium Chloride (Pepcid 20 Mg (Premix)) 50 mls @ 200 mls/hr IV EDNOW ONE Stop: 02/28/17 08:53 Last Admin: 02/28/17 09:20 Dose: 50 mls Sodium Chloride (Ns) 1,000 mls @ 0 mls/hr IV ONCE ONE PRN Reason: Wide Open Stop: 02/28/17 11:36 Last Admin: 02/28/17 11:36 Dose: 1,000 mls Lorazepam (Ativan Injection) 1 mg IVP EDNOW ONE Stop: 02/28/17 08:40 Last Admin: 02/28/17 09:21 Dose: 1 mg Metoclopramide HCl (Reglan Injection) 10 mg IVP EDNOW ONE Stop: 02/28/17 08:38 Last Admin: 02/28/17 09:21 Dose: 10 mg Promethazine HCl (Phenergan) 12.5 mg IVP EDNOW ONE Stop: 02/28/17 13:01 Last Admin: 02/28/17 13:10 Dose: 12.5 mg Departure - Departure Disposition: [facility] ([place], [place]) Inpatient Acute Clinical Impression: Abdominal pain Condition: Fair Instructions: Constipation (ED), High Fiber Diet (ED) Additional Instructions: Frequent, small sips fluids well nauseated. Gradual diet advancement. Milk of magnesia, magnesium citrate, Colace as needed for constipation. Zofran as needed for nausea. Return for worsening symptoms. Recheck in 1 day if not improved Referrals: DARNELL FAY [Primary Care Provider] - As per Instructions
[2017-02-28] MEDS ORDERED: ONDANSETRON DISINTEGRATING 4 MG TAB ONE (08:33)
[2017-02-28] MEDS ORDERED: METOCLOPRAMIDE 10 MG/2 ML VIAL IVP ONE (08:37)
[2017-02-28] MEDS ORDERED: NS 1,000 ML IV ONE ×2 (08:37→11:35)
[2017-02-28] MEDS ORDERED: LORazepam 2 MG/ML INJ IVP ONE (08:39)
[2017-02-28] MEDS ORDERED: FAMOTIDINE 20 MG/NACL 50 ML IV ONE (08:39)
[2017-02-28 09:19] LABS: % IMMATURE GRANULYOCYTES 0.5 % (0.0-1.1); ABSOLUTE IMMATURE GRANULOCYTES 0.08 10^3/uL (0.00-0.10); ADD DIFF? NO; ADD MORPH? NO; ADD SCAN? NO; ATYPICAL LYMPHOCYTE FLAG 0 (0-99); FRAGMENT RBC FLAG 0 (0-99); HEMATOCRIT 49.1 % (38.0-47.0); HEMOGLOBIN 17.1 g/dL (12.6-16.3); LEFT SHIFT FLG 0 (0-99); LIPEMIA HEMOLYSIS FLAG 90 (0-99); MEAN CELL HEMOGLOBIN 33.2 pg (27.9-34.1); MEAN CELL HEMOGLOBIN CONCENTR. 34.8 g/dL (32.4-36.7); MEAN CELL VOLUME 95.3 fL (81.5-99.8); MEAN PLATELET VOLUME 9.2 fL (8.7-11.7); PLATELET CLUMPS FLAG 0 (0-99); PLATELET COUNT 268 10^3/uL (150-400); RED BLOOD CELL COUNT 5.15 10^6/uL (4.18-5.33); RED CELL DISTRIBUTION WIDTH 13.3 % (11.5-15.2)
[2017-02-28 09:44] LABS: ALANINE AMINOTRANSFERASE 27 IU/L (9-52); ALKALINE PHOSPHATASE 113 IU/L (38-126); ANION GAP 15 mEq/L (8-16); ASPARTATE AMINOTRANSFERASE 26 IU/L (14-46); BILIRUBIN,TOTAL 1.1 mg/dL (0.1-1.4); BILIRUBIN-CONJUGATED 0.5 mg/dL (0.0-0.5); BILIRUBIN-UNCONJUGATED 0.6 mg/dL (0.0-1.1); CALCIUM 9.8 mg/dL (8.5-10.4); CARBON DIOXIDE 22 mEq/l (22-31); CHLORIDE 104 mEq/L (97-110); CREATININE 0.6 mg/dL (0.6-1.0); GLOMERULAR FILTRATION RATE > 60; GLUCOSE 165 mg/dL (70-100); POTASSIUM 3.6 mEq/L (3.5-5.2); SODIUM 141 mEq/L (134-144); TOTAL PROTEIN 7.6 g/dL (6.3-8.2)
[2017-02-28] MEDS ORDERED: PROMETHAZINE HCL 25 MG/ML INJ IVP ONE (13:00)
[2017-02-28] MEDS ORDERED: METOCLOPRAMIDE 10 MG/2 ML VIAL IVP PRN (15:29)
[2017-02-28] MEDS ORDERED: PROMETHAZINE HCL 25 MG TAB PO PRN (15:29)
[2017-02-28] MEDS ORDERED: LORazepam 2 MG/ML INJ IVP PRN (15:29)
[2017-02-28] MEDS ORDERED: ACETAMINOPHEN 325 MG TAB PO PRN (15:29)
[2017-02-28] MEDS ORDERED: LACTULOSE 20 GM/30 ML UDCUP PO PRN (15:48)
[2017-02-28] MEDS ORDERED: BISACODYL 10 MG SUPP PR PRN (15:48)
[2017-02-28] MEDS ORDERED: POLYETHYLENE GLYCOL 3350 17 GM PKT PO PRN (15:48)
[2017-02-28] MEDS ORDERED: MAGNESIUM HYDROXIDE 30 ML UDCUP PO PRN (15:48)
[2017-02-28] MEDS: NS 1,000 ML IV SCH (16:06)
--- NOTE | 2017-02-28 16:42 | CPEKG ---
Heart Rate: 82 RR Interval: 732 P-R Interval: 176 QRSD Interval: 88 QT Interval: 416 QTC Interval: 486 P [place]: 88 QRS [place]: -23 T Wave [place]: 85 EKG Severity - ABNORMAL ECG - EKG Impression: SINUS RHYTHM EKG Impression: PROBABLE LEFT ATRIAL ABNORMALITY EKG Impression: LEFT VENTRICULAR HYPERTROPHY EKG Impression: ABNORMAL T, CONSIDER ISCHEMIA, ANT-LAT LEADS EKG Impression: BORDERLINE PROLONGED QT INTERVAL Electronically Signed By: Eladio Meehan 01-Mar-2017 11:58:56
--- NOTE | 2017-02-28 17:07 | GHP ---
[f rep st] HISTORY AND PHYSICAL DATE OF ADMISSION: 02/28/2017 CHIEF COMPLAINT: Nausea, vomiting, abdominal pain. HISTORY OF PRESENT ILLNESS: This is a 71-year-old female with multiple admissions for the same who presents with nausea, vomiting, and abdominal pain. She does have a GI history of a questionable co litis, which has been treated with sulfasalazine. There is no clear diagnosis of an inflammatory gunner wel disease. As well as a history of possible SMA syndrome as well as a gastric ulcer perforation r epaired by Dr. Pettit. She presents today with vomiting that started at 5:22 a.m. this morning. She has had multiple episo doreen of emesis which has been nonbloody, nonbilious. No diarrhea, per her . On the ride down she was kicking the back seats due to some abdominal pain. When I am seeing her, she is quite somnolent. She received multiple sedating medications in the chris rgency room including Benadryl, Ativan, Reglan, Phenergan. Her tells me that she was alert prior to receiving these. She was also able to stand and pivot into bed. PAST MEDICAL/SURGICAL HISTORY: 1. History of chronic pain. On continuous narcotics. 2. Likely cyclic vomiting syndrome. 3. Questionable history of Crohn disease and SMA syndrome. 4. Hysterectomy. 5. Cholecystectomy. 6. Appendectomy. 7. Lysis of adhesions for obstruction. MEDICATIONS: Please see medication reconciliation. ALLERGIES: No known drug allergies. FAMILY HISTORY: No abdominal or digestive illnesses. SOCIAL HISTORY: She lives with her outside of [place]. She previously worked as a flight att endant. She is using medical marijuana. REVIEW OF SYSTEMS: A 10-point review of systems is conducted and is negative except per HPI. PHYSICAL EXAM: VITAL SIGNS: Blood pressure 156/74, heart rate 80, respiration rate 16, saturating 95% on 2.5 L. Temperature is 37.3. GENERAL: The patient is a pleasant female who is quite somnole nt, though she is arousable to voice. HEENT: Shows her mucous membranes to be moist. CARDIOVASCUL AR: Regular rate and rhythm. No murmurs, rubs, or gallops. PULMONARY: Lungs clear to auscultatio n bilaterally. ABDOMEN: Soft. She is not really tender to palpation when I am pressing on her. S KIN: No rash. : No Lopez. NEUROLOGIC: Alert and oriented x3. She is moving all extremities. PSYCHIATRIC: Normal mood and affect. LABS: White count of 15.4, hemoglobin is 17.1, comprehensive metabolic panel is normal. DATA: 1. I discussed this with Dr. Hammer in the ED. Will admit to [facility]. 2. I personally viewed and interpreted her abdominal x-ray. This shows constipation. IMPRESSION AND PLAN: This is a 71-year-old female with multiple admissions for the same who present s with intractable nausea, vomiting, and abdominal pain. 1. Nausea, vomiting, and abdominal pain: Old records have been reviewed. This seems mostly simila r to previous presentations. Her exam is benign. She has questionable history of SMA syndrome as w ell as Crohn colitis. Abdominal x-ray suggests constipation. For now, I will treat symptomatically . Will not get a CT of her abdomen. Check an EKG, as she has had borderline prolonged QT in the [place] st. Would like to treat her with Zofran if possible, though she is on methadone. We will provide s upportive care including antiemetics as well as IV fluids. If vitals change or abdominal pain worse ns, will have a low threshold to workup further. 2. Chronic pain: Will hopefully be able to continue her methadone soon so she does not go into wit hdrawal. She may need IV narcotics. 3. Hemoconcentration: Will recheck blood counts in the morning. 4. Mild leukocytosis: Suspect that this is stress. Will trend this. 5. Could consider discussing her marijuana use further, given possibility of marijuana hyperemesis. 6. Venous thromboembolism risk: She is moderate, as she is not moving much. We will give her Love nox. 7. Encephalopathy: Suspect that this is due to medication she received in the ED. If this does no t recover, will follow closely. /[id number]/MODL
[2017-02-28] MEDS ORDERED: NON-FORMULARY NEW DRUG (Omeprazole [Prilosec 20 Mg] 20 MG) PO PRN (19:01)
[2017-02-28] MEDS ORDERED: oxyCODONE IR 5 MG TAB PO PRN (19:01)
[2017-02-28] MEDS ORDERED: PANTOPRAZOLE SODIUM 40 MG TAB PO PRN (19:09)
[2017-02-28] MEDS ORDERED: ESTRADIOL 0.025 MG PATCH TD SCH (19:15)
[2017-02-28] MEDS: SENNOSIDES/DOCUSATE SODIUM TAB PO SCH (22:02)
[2017-02-28] MEDS: METHADONE HCL 10 MG TAB PO SCH (22:03)
[2017-02-28] MEDS: sulfaSALAzine 500 MG TAB PO SCH (22:03)
[2017-03-01 04:33] LABS: % IMMATURE GRANULYOCYTES 0.3 % (0.0-1.1); ABSOLUTE IMMATURE GRANULOCYTES 0.03 10^3/uL (0.00-0.10); ADD DIFF? NO; ADD MORPH? NO; ADD SCAN? NO; ATYPICAL LYMPHOCYTE FLAG 0 (0-99); FRAGMENT RBC FLAG 0 (0-99); HEMATOCRIT 44.3 % (38.0-47.0); HEMOGLOBIN 15.4 g/dL (12.6-16.3); LEFT SHIFT FLG 0 (0-99); LIPEMIA HEMOLYSIS FLAG 90 (0-99); MEAN CELL HEMOGLOBIN 33.5 pg (27.9-34.1); MEAN CELL HEMOGLOBIN CONCENTR. 34.8 g/dL (32.4-36.7); MEAN CELL VOLUME 96.3 fL (81.5-99.8); MEAN PLATELET VOLUME 9.3 fL (8.7-11.7); PLATELET CLUMPS FLAG 0 (0-99); PLATELET COUNT 184 10^3/uL (150-400); RED CELL DISTRIBUTION WIDTH 13.4 % (11.5-15.2)
--- NOTE | 2017-03-01 08:36 | HOSPPROG ---
Hospitalist Progress Note Assessment/Plan: Patient is a 71-year-old female presented to the room emergency room with nausea vomiting abdominal pain. Today is my 1st encounter with the patient. Chart reviewed. 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 Objective: Vital Signs Temp Pulse Resp BP Pulse Ox 36.7 C 77 16 156/80 H 90 L 03/01/17 07:20 03/01/17 07:20 03/01/17 07:20 03/01/17 07:20 03/01/17 07:20 Laboratory Results 03/01/17 04:16 02/28/17 03/01/17 03/02/17 05:59 05:59 05:59 Intake Total 2400 Balance 2400 - Physical Exam Constitutional: appears nourished, other (thin) Eyes: PERRL Ears, Nose, Mouth, Throat: hearing normal Cardiovascular: regular rate and rhythym Respiratory: no respiratory distress Gastrointestinal: normoactive bowel sounds, soft, non-tender abdomen Skin: warm Musculoskeletal: no muscle tenderness Neurologic: AAOx3 Psychiatric: interacting appropriately ICD10 Worksheet Patient Problems: Problems Problem Status Onset Abdominal pain Acute opiod Active Abdominal pain Acute Acute abdominal pain Acute Acute encephalopathy Acute Bowel obstruction Acute Cyclic vomiting syndrome Acute Cyclical vomiting syndrome Acute Intractable vomiting Acute Leukocytosis Acute Nausea Acute Nausea & vomiting Acute Opiate dependence, continuous Acute Vomiting Acute
[2017-03-01] MEDS ORDERED: ENOXAPARIN 40 MG/0.4 ML SYR SC SCH (09:00)
[2017-03-01] MEDS: SENNOSIDES/DOCUSATE SODIUM TAB PO SCH (10:33)
[2017-03-01] MEDS: METHADONE HCL 10 MG TAB PO SCH ×2 (10:33→16:01)
[2017-03-01] MEDS: sulfaSALAzine 500 MG TAB PO SCH (10:33)
[2017-03-01] MEDS: NS 1,000 ML IV SCH (10:39)
[2017-03-01 11:37] VITALS: BP 119/68; PULSE 73; RESP 20; TEMP 98.4; O2SAT 91
--- NOTE | 2017-03-02 01:05 | GDS ---
[f rep st] DISCHARGE SUMMARY DISCHARGE DIAGNOSES: 1. Nausea, vomiting, abdominal pain. 2. Chronic pain on continuous opioids. 3. Hemoconcentration. 4. Leukocytosis. 5. Acute encephalopathy. HISTORY OF PRESENT ILLNESS: Briefly, patient is a 71-year-old female, who presented to the emergenc y room with nausea and vomiting and associated abdominal pain. She has had multiple admissions for this in the past. 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 Today, she has been able to tolerate a clear liquid diet and is feeling markedly better. HOSPITAL COURSE PER PROBLEM: 1. Nausea, vomiting with associated abdominal pain. She had a CT scan of the abdomen performed in December that showed nothing acute. This is her fifth admission for these symptoms this year. Recomme nding she stay in a close regimen of medications to help avoid constipation. I suspect this is attr ibuting to some of her pain. 2. Chronic pain. On continuous opioids. Resumed her methadone. 3. Hemoconcentration. This is due to dehydration, resolved. 4. Leukocytosis, improved with hydration. 5. Acute encephalopathy. This was noted on admission. This is resolved. She is alert and oriente d. PENDING LABORATORIES AND TESTS: None. CONDITION AT DISCHARGE: Stable. Blood pressure is 119/68, heart rate is 73, respiratory rate is 20 , O2 saturation on room air 91%, temperature is 36.9 Celsius. MEDICATIONS AT DISCHARGE: Please see the EMR. DISCHARGE INSTRUCTIONS: 1. To stay on aggressive bowel protocol. 2. To follow up with her PCP. 3. If she has any fever, chills, worsening abdominal pain, to return to the ER. /[id number]/MODL
[2017-03-02] MEDS ORDERED: POLYETHYLENE GLYCOL 3350 17 GM PKT PO SCH (09:00)
[2017-03-05] MEDS ORDERED: ESTRADIOL 0.025 MG PATCH TD SCH (09:00)
== END 2017-03-01 16:28 | disposition home or self-care (01) ==
LOC: INTOOBSV 14:31 → F3E 15:09
PROVIDERS: ADMIT Student in an Organized Health Care Education/Training Program; ATTEND Hospitalist
PROC: 3E0337Z Introduction of Electrolytic and Water Balance Substance into Peripheral Vein, Percutaneous Approach (ICD-10-PCS; principal; 2017-02-28)
DX: R11.2 Nausea with vomiting, unspecified (principal); G89.29 Other chronic pain; R10.84 Generalized abdominal pain; E86.9 Volume depletion, unspecified; R79.89 Other specified abnormal findings of blood chemistry; D72.829 Elevated white blood cell count, unspecified; G93.40 Encephalopathy, unspecified; F17.200 Nicotine dependence, unspecified, uncomplicated; Z79.891 Long term (current) use of opiate analgesic; Z90.710 Acquired absence of both cervix and uterus
CPT/HCPCS: 74000; 93005; 96361; 96365; 96375; 99285; G0378; J1200; J1650; J2060; J2550; J2765

== ENCOUNTER 2017-05-07 12:29 | Observation (INO) | payer OTHER ==
[2017-05-07] MEDS ORDERED: NS 1,000 ML IV ONE (13:10)
[2017-05-07] MEDS ORDERED: ONDANSETRON 4 MG/2 ML VIAL IVP ONE ×2 (13:11→16:10)
[2017-05-07] MEDS ORDERED: LORazepam 2 MG/ML INJ IVP ONE ×2 (13:26→16:11)
--- NOTE | 2017-05-07 13:28 | EDPHY ---
H & P Stated Complaint: cyclic vomiting r/o bowel obstruction Time Seen by Provider: 05/07/17 12:55 HPI/ROS: CHIEF COMPLAINT: Abdominal pain, vomiting, constipation HISTORY OF PRESENT ILLNESS: The patient presents to the ED with abdominal pain , vomiting and constipation. She reportedly has had the symptoms for the past several days. While in route to the emergency department she experienced a large bowel movement. She arrives complaining of generalized abdominal pain, nausea and vomiting. The patient describes a 7/10 generalized pain. The patient has a history of chronic intermittent vomiting and abdominal pain. She has questionable history of inflammatory bowel disease. The patient also has a history of a perforated gastric ulcer and a reported possible SMA syndrome. The patient denies any additional complaints of fever, cough or congestion. The patient has had multiple hospitalizations for this condition in the past. REVIEW OF SYSTEMS: A comprehensive 10 point review of systems is otherwise negative aside from elements mentioned in the history of present illness. Source: Patient, Family - Personal History Current Tetanus/Diphtheria Vaccine: Yes Tetanus Vaccine Date: LESS THAN 10 YEARS - Medical/Surgical History Hx Asthma: No Hx Chronic Respiratory Disease: No Hx Diabetes: No Hx Cardiac Disease: No Hx Renal Disease: No Hx Cirrhosis: No Hx Alcoholism: No Hx HIV/AIDS: No Hx Splenectomy or Spleen Trauma: No Other PMH: multiple Bowel obstructions , opiod dependence, chronic low backpain , GERD, cholelithiasis, chronic colitis, abdominal bloating, chronic N/V, cholelithiasis, gi bleed (2010), mutiple back surgeries, scoleosis, deginerative spine diease. psh- appy, nena, hysterectomy, gi surgery, right shoulder surgery, left knee surgery, BACK SURGERY - Social History Smoking Status: Heavy smoker - Physical Exam Exam: General Appearance: Elderly female, mild distress secondary to pain Eyes: Pupils equal and round no pallor or injection ENT, Mouth: Dry mucous membranes Respiratory: There are no retractions, lungs are clear to auscultation Cardiovascular: Slight tachycardia Gastrointestinal: Generalized abdominal tenderness, normal bowel sounds, no peritoneal signs Neurological: A&O, normal motor function, normal sensory exam, normal cranial nerves Skin: Warm and dry, no rashes Musculoskeletal: Neck is supple nontender Extremities: symmetrical, full range of motion Constitutional: Initial Vital Signs Temperature (C) 36.7 C 05/07/17 12:33 Heart Rate 81 05/07/17 12:33 Respiratory Rate 28 H 05/07/17 12:33 Blood Pressure 182/130 H 05/07/17 12:33 O2 Sat (%) 98 05/07/17 12:33 O2 Delivery Mode Room Air Allergies/Adverse Reactions: No Known Allergies Allergy (Verified 05/07/17 12:32) Home Medications: Medication Instructions Recorded Docusate Sodium [Colace 100 MG (*)] 100 mg PO BID PRN 01/19/17 Estradiol [Climara] 0.025 mg TD Q7D 01/19/17 Methadone HCl [Methadone HCl 10 mg 20 mg PO TID 01/19/17 (*)] Multivitamins [Multivitamin (*)] 1 each PO DAILY 01/19/17 Omeprazole [Prilosec 20 mg] 20 mg PO DAILY PRN 01/19/17 sulfaSALAzine [Sulfasalazine] 1,000 mg PO BID 01/19/17 Acetaminophen [Tylenol 325mg (*)] 650 mg PO Q4HRS PRN #0 tab 01/20/17 oxyCODONE IR [Oxycodone Ir (*)] 5 - 10 mg PO Q4-6PRN PRN 02/28/17 Polyethylene Glycol 3350 [Miralax 17 gm PO DAILY pkt 03/01/17 17 gm (*)] Sennosides/Docusate Sodium 1 - 2 tab PO BID tab 03/01/17 [Senokot-S] Medical Decision Making ED Course/Re-evaluation: The patient presents to the ED with a typical presentation of acute abdominal pain, vomiting and inability to control her bowels. The patient had an IV established. She received a L of normal saline. She received IV Ativan and Zofran. The patient serial examinations by myself in the emergency department. She continues to complain of ongoing nausea and vomiting. She continues to have uncontrolled bowel movements. The patient will require admission to the hospital in the setting of her ongoing symptoms. Consultation is made with Dr. Tommy Herndon from the hospitalist service at 4:00 p.m.. The patient has had an extensive evaluation of her acute abdominal pain and vomiting in the past. I do not feel that additional imaging is indicated at this point time. The patient has no evidence of a bowel obstruction or surgical abdomen. Differential Diagnosis: Differential diagnosis considered includes dehydration, metabolic abnormality, acute exacerbation of chronic abdominal pain, constipation, diarrhea - Data Points Laboratory Results: Laboratory Results 05/07/17 13:47 05/07/17 13:47 05/07/17 05/07/17 13:47 13:47 WBC 17.43 10^3/uL H 10^3/uL (3.80-9.50) RBC 5.41 10^6/uL H 10^6/uL (4.18-5.33) Hgb 18.1 g/dL H g/dL (12.6-16.3) Hct 51.3 % H % (38.0-47.0) MCV 94.8 fL fL (81.5-99.8) MCH 33.5 pg pg (27.9-34.1) MCHC 35.3 g/dL g/dL (32.4-36.7) RDW 13.0 % % (11.5-15.2) Plt Count 202 10^3/uL 10^3/uL (150-400) MPV 9.5 fL fL (8.7-11.7) Neut % (Auto) 84.5 % H % (39.3-74.2) Lymph % (Auto) 8.0 % L % (15.0-45.0) [place] % (Auto) 6.3 % % (4.5-13.0) Eos % (Auto) 0.3 % L % (0.6-7.6) Baso % (Auto) 0.5 % % (0.3-1.7) Nucleat RBC Rel Count 0.0 % % (0.0-0.2) Absolute Neuts (auto) 14.73 10^3/uL H 10^3/uL (1.70-6.50) Absolute Lymphs (auto) 1.39 10^3/uL 10^3/uL (1.00-3.00) Absolute Monos (auto) 1.09 10^3/uL H 10^3/uL (0.30-0.80) Absolute Eos (auto) 0.06 10^3/uL 10^3/uL (0.03-0.40) Absolute Basos (auto) 0.09 10^3/uL 10^3/uL (0.02-0.10) Absolute Nucleated RBC 0.00 10^3/uL 10^3/uL (0-0.01) Immature Gran % 0.4 % % (0.0-1.1) Seg Neutrophils % 88 % % Band Neutrophils % 1 % % Lymphocytes % 5 % % Monocytes % 5 % % Basophils % 1 % % Immature Gran # 0.07 10^3/uL 10^3/uL (0.00-0.10) Absolute Seg Neuts 15.34 10^/uL H 10^/uL (1.70-6.50) Absolute Band Neuts 0.17 10^3/uL 10^3/uL (0.00-0.70) Absolute Lymphocytes 0.87 10^3/uL L 10^3/uL (1.00-3.00) Absolute Monocytes 0.87 10^3/uL H 10^3/uL (0.30-0.80) Absolute Basophils 0.17 10^3/uL H 10^3/uL (0.02-0.10) Differential Comment RBC/WBC/PLT Morphology NORMAL (NORMAL) Platelet Estimate ADEQUATE (ADEQ) Large Platelets PRESENT H Sodium 142 mEq/L mEq/L (134-144) Potassium 3.6 mEq/L mEq/L (3.5-5.2) Chloride 101 mEq/L mEq/L (97-110) Carbon Dioxide 23 mEq/l mEq/l (22-31) Anion Gap 18 mEq/L H mEq/L (8-16) BUN 10 mg/dL mg/dL (7-23) Creatinine 0.6 mg/dL mg/dL (0.6-1.0) Estimated GFR > 60 Glucose 149 mg/dL H mg/dL (70-100) Calcium 10.0 mg/dL mg/dL (8.5-10.4) Lipase 42 IU/L IU/L (23-300) Medications Given: Discontinued Medications Sodium Chloride (Ns) 1,000 mls @ 0 mls/hr IV EDNOW ONE; Wide Open PRN Reason: Protocol Stop: 05/07/17 13:11 Last Admin: 05/07/17 13:40 Dose: 1,000 mls Lorazepam (Ativan Injection) 1 mg IVP EDNOW ONE Stop: 05/07/17 13:27 Last Admin: 05/07/17 14:18 Dose: 1 mg Ondansetron HCl (Zofran) 4 mg IVP EDNOW ONE Stop: 05/07/17 13:12 Last Admin: 05/07/17 14:18 Dose: 4 mg Departure - Departure Disposition: [facility] Inpatient Acute Clinical Impression: Abdominal pain, Cyclical vomiting syndrome, Abdominal pain, Leukocytosis, Vomiting Condition: Fair Referrals: DARNELL FAY [Primary Care Provider] - As per Instructions
[2017-05-07 14:03] LABS: % IMMATURE GRANULYOCYTES 0.4 % (0.0-1.1); ABSOLUTE IMMATURE GRANULOCYTES 0.07 10^3/uL (0.00-0.10); ADD DIFF? NO; ADD MORPH? NO; ADD SCAN? YES; ATYPICAL LYMPHOCYTE FLAG 0 (0-99); FRAGMENT RBC FLAG 0 (0-99); HEMATOCRIT 51.3 % (38.0-47.0); HEMOGLOBIN 18.1 g/dL (12.6-16.3); LEFT SHIFT FLG 0 (0-99); LIPEMIA HEMOLYSIS FLAG 90 (0-99); MEAN CELL HEMOGLOBIN 33.5 pg (27.9-34.1); MEAN CELL HEMOGLOBIN CONCENTR. 35.3 g/dL (32.4-36.7); MEAN CELL VOLUME 94.8 fL (81.5-99.8); MEAN PLATELET VOLUME 9.5 fL (8.7-11.7); PLATELET COUNT 202 10^3/uL (150-400); RED BLOOD CELL COUNT 5.41 10^6/uL (4.18-5.33)
[2017-05-07 14:08] LABS: PLATELET CLUMPS FLAG 100 (0-99)
[2017-05-07 14:12] LABS: ANION GAP 18 mEq/L (8-16); CARBON DIOXIDE 23 mEq/l (22-31); CHLORIDE 101 mEq/L (97-110); CREATININE 0.6 mg/dL (0.6-1.0); GLOMERULAR FILTRATION RATE > 60; GLUCOSE 149 mg/dL (70-100); POTASSIUM 3.6 mEq/L (3.5-5.2); SODIUM 142 mEq/L (134-144)
[2017-05-07 14:30] LABS: SCAN POSITIVE
[2017-05-07 14:35] LABS: LARGE PLATELETS PRESENT; PLATELET ESTIMATE ADEQUATE (ADEQ)
[2017-05-07] MEDS ORDERED: ONDANSETRON DISINTEGRATING 4 MG TAB PO PRN (17:32)
[2017-05-07] MEDS ORDERED: ACETAMINOPHEN 325 MG TAB PO PRN ×2 (17:32→17:50)
[2017-05-07] MEDS ORDERED: ONDANSETRON 4 MG/2 ML VIAL IVP PRN (17:32)
[2017-05-07] MEDS: NS 1,000 ML IV SCH (18:31)
--- NOTE | 2017-05-07 19:07 | GHP ---
[f rep st] HISTORY AND PHYSICAL DATE OF ADMISSION: 05/07/2017 HISTORY OF PRESENT ILLNESS: The patient is a pleasant 71-year-old female with a history of abdomina l pain, unspecified, possible inflammatory bowel disease, on continuous narcotic use, who presents w ith abdominal pain. It sounds like she called 911 with abdominal pain. In the ambulance, she had a large bowel movement and continued to have multiple bowel movements in the emergency department. S he also had nausea and vomiting. She has had no fever or chills. In the emergency department, she described the pain as 7/10 generalized pain, with a history of chronic intermittent vomiting and abd ominal pain. When I see the patient, she is somnolent, but arousable, but really does not appear interested in an swering questions. I tried multiple angles on the questioning and really, all she was able to tell me was that she is not having urinary symptoms and continues to have abdominal pain. It is in her l ower abdomen. No shortness of breath. No cough. REVIEW OF SYSTEMS: A complete 10-point review of systems was conducted and negative except as noted in the HPI. PAST MEDICAL HISTORY: 1. Chronic pain, on continuous narcotics, likely cyclic vomiting syndrome. 2. History of perforated gastric ulcer, status post operative repair. 3. Questionable history of Crohn disease versus other inflammatory bowel disease. She had previous ly been on sulfasalazine. 4. Possible SMA syndrome. 5. Hysterectomy, cholecystectomy, appendectomy, and lysis of adhesions for obstruction. ALLERGIES: No known drug allergies. HOME MEDICATIONS: Methadone, oxycodone, acetaminophen, and estradiol. SOCIAL HISTORY: Lives in [place]. Previously worked as a surgical attendant. Uses medical marijuana. No tobacco. FAMILY HISTORY: No abdominal issues. PHYSICAL EXAMINATION: VITAL SIGNS: Temp 36.7, blood pressure 182/130 and now 173/91, pulse 81, oly athing at 20 times a minute, 98% on room air. GENERAL: No acute distress. Somnolent, but arousabl e. HEENT: Sclerae anicteric. Oropharynx clear. Mucous membranes moist. NECK: Supple, without l ymphadenopathy or JVD. LUNGS: Clear to auscultation bilaterally. HEART: S1, S2. There is volunt carola guarding. No rebound. LOWER EXTREMITIES: Without edema. Calves are nontender. SKIN: Withou t rash. NEUROLOGIC: Exam is nonfocal. LABORATORY DATA: White count 17.4, although she does have chronic leukocytosis. Hematocrit 51, charlie telets 202. Sodium 142, potassium 3.6, chloride 101, bicarb 23, BUN 10, creatinine 0.6, glucose 149 , lipase 42. There was no imaging. I have discussed the case with Dr. Nahid Almodovar. ASSESSMENT AND PLAN: A 71-year-old female who presents with abdominal pain and multiple bowel movem ents. 1. Abdominal pain. I suspect this is secondary to resolving constipation. She has a leukocytosis, but is neither tachycardic or febrile. Her exam is not consistent with a surgical abdomen. I thin k that it is reasonable to hold off on imaging. I will follow. She denies urinary symptoms. 2. Somnolence. The patient received 1.5 mg of Ativan as well as morphine in the ER, so we will fol low. I will hold her pain medicines for now. 3. Leukocytosis. This could be from constipation. She does have a chronic leukocytosis. We will follow. Again, the patient has stable vital signs and no fever. 4. Continuous narcotic use. We will restart her chronic narcotics when she is more alert. 5. Disposition: Observation status. 6. Prophylaxis. Low-molecular heparin indicated. Start. /[id number]/MODL
[2017-05-08] MEDS: NS 1,000 ML IV SCH (05:06)
[2017-05-08 05:18] LABS: % IMMATURE GRANULYOCYTES 0.4 % (0.0-1.1); ABSOLUTE IMMATURE GRANULOCYTES 0.05 10^3/uL (0.00-0.10); ADD DIFF? NO; ADD MORPH? NO; ADD SCAN? NO; ATYPICAL LYMPHOCYTE FLAG 0 (0-99); FRAGMENT RBC FLAG 0 (0-99); HEMATOCRIT 46.2 % (38.0-47.0); HEMOGLOBIN 15.7 g/dL (12.6-16.3); LEFT SHIFT FLG 0 (0-99); LIPEMIA HEMOLYSIS FLAG 90 (0-99); MEAN CELL HEMOGLOBIN 32.6 pg (27.9-34.1); MEAN PLATELET VOLUME 9.5 fL (8.7-11.7); PLATELET CLUMPS FLAG 0 (0-99); PLATELET COUNT 192 10^3/uL (150-400); RED BLOOD CELL COUNT 4.81 10^6/uL (4.18-5.33)
[2017-05-08 05:33] LABS: ANION GAP 9 mEq/L (8-16); CALCIUM 8.5 mg/dL (8.5-10.4); CARBON DIOXIDE 25 mEq/l (22-31); CHLORIDE 106 mEq/L (97-110); CREATININE 0.6 mg/dL (0.6-1.0); GLOMERULAR FILTRATION RATE > 60; GLUCOSE 90 mg/dL (70-100); POTASSIUM 3.7 mEq/L (3.5-5.2); SODIUM 140 mEq/L (134-144)
[2017-05-08] MEDS: ENOXAPARIN 30 MG/0.3 ML SYR SC SCH ×2 (08:24→08:55)
[2017-05-08 08:27] VITALS: RESP 18
[2017-05-08] MEDS ORDERED: oxyCODONE IR 5 MG TAB PO PRN (11:47)
[2017-05-08] MEDS ORDERED: METHADONE HCL 10 MG TAB PO SCH ×3 (12:13→16:00)
--- NOTE | 2017-05-08 13:51 | HOSPPROG ---
Hospitalist Progress Note Assessment/Plan: #Abd pain: suspect due to constipation with chronic opioids. Had BM last night. Tolerating clears this morning. #Chronic ab pain: on methadone. Has FU with Dr. Nathan #Marijuana use: uses daily. Likely contributes to chronic nausea #Leukocytosis: much improved. Denies infectious symptoms. Afebrile #Diet: ADAT #Disp: DC today if tolerates lunch Subjective: feeling like herself today Objective: Vital Signs Temp Pulse Resp BP Pulse Ox 36.4 C 77 18 134/82 H 95 05/08/17 08:24 05/08/17 08:24 05/08/17 08:24 05/08/17 08:24 05/08/17 08:24 Laboratory Results 05/08/17 05:09 05/08/17 05:09 05/07/17 05/08/17 05/09/17 05:59 05:59 05:59 Intake Total 1748 Output Total 1100 Balance 648 - Physical Exam Constitutional: other (thin, NAD) Eyes: PERRL Ears, Nose, Mouth, Throat: moist mucous membranes, hearing normal Cardiovascular: regular rate and rhythym, no murmur, rub, or gallop Respiratory: no respiratory distress, no rales or rhonchi Gastrointestinal: normoactive bowel sounds, soft, non-tender abdomen, no palpable masses Genitourinary: no bladder fullness Skin: warm Musculoskeletal: full muscle strength Neurologic: AAOx3, CN II-XII Intact Psychiatric: interacting appropriately ICD10 Worksheet Patient Problems: Problems Problem Status Onset Abdominal pain Acute Abdominal pain Acute Cyclical vomiting syndrome Acute Leukocytosis Acute Vomiting Acute opiod Active Acute abdominal pain Acute Acute encephalopathy Acute Bowel obstruction Acute Cyclic vomiting syndrome Acute Intractable vomiting Acute Nausea Acute Nausea & vomiting Acute Opiate dependence, continuous Acute
[2017-05-08 16:43] VITALS: BP 129/80; PULSE 71; TEMP 97.8; O2SAT 92
--- NOTE | 2017-05-08 17:09 | GDS ---
[f rep st] DISCHARGE SUMMARY CHIEF COMPLAINT: 1. Acute on chronic abdominal pain. 2. Chronic narcotic use. 3. Marijuana use. 4. Possible Crohn's disease versus IBS. Followed by Dr. Nathan. 5. Possible SMA syndrome. HISTORY OF PRESENT ILLNESS: A 71-year-old female with history of chronic abdominal pain, on methado ne, possibly IBD, who presented with abdominal pain. She called 911, said it was diffuse severe brittnee n. During the ambulance ride, she had a large bowel movement, continued to have multiple BMs in the emergency room. She had some mild nausea and vomiting. She had no fevers, chills. Denies dysuria or urinary frequency. At the time of admission she was somnolent, but arousable. During my interv iew this morning, she was feeling like herself and wanting to eat more. HOSPITAL COURSE BY PROBLEM: 1. Acute on chronic abdominal pain: Suspect secondary to constipation with chronic narcotic use. She had several large BMs yesterday and feeling much better. She tolerated a regular diet today. S he has followup with Dr. Nathan in 2 weeks. Added senna to discharge medications. 2. Marijuana use: She states this is for pain. This can contribute to her chronic vomiting. I co unseled her on cessation. 3. Possible Crohn's disease versus IBD. She is followed by Dr. Nathan. DISPOSITION: The patient is stable for discharge. NEW MEDICATIONS: Senna. FOLLOWUP: Dr. Nathan. /[id number]/MOD
[2017-05-11] MEDS ORDERED: ESTRADIOL 0.025 MG PATCH TD SCH (21:00)
== END 2017-05-08 17:01 | disposition home or self-care (01) ==
LOC: F1N 16:45
PROVIDERS: ADMIT Internal Medicine; ATTEND Internal Medicine
DX: K59.00 Constipation, unspecified (principal); G89.29 Other chronic pain; F12.90 Cannabis use, unspecified, uncomplicated; F11.20 Opioid dependence, uncomplicated; Z72.0 Tobacco use
CPT/HCPCS: 97161; 97165; 97530; G0378; G8978; G8979; G8980; G8987; G8988; G8989; J2060; J2405; 96374; J1650

== ENCOUNTER 2017-08-28 19:05 | Emergency (ER) | payer OTHER ==
--- NOTE | 2017-08-28 20:12 | EDPHY ---
H & P Stated Complaint: VOMITING/ POSS WITHDRAWAL Time Seen by Provider: 08/28/17 20:12 - Personal History Current Tetanus Diphtheria and Acellular Pertussis (TDAP): Yes Tetanus Vaccine Date: LESS THAN 10 YEARS - Medical/Surgical History Hx Asthma: No Hx Chronic Respiratory Disease: No Hx Diabetes: No Hx Cardiac Disease: No Hx Renal Disease: No Hx Cirrhosis: No Hx Alcoholism: No Hx HIV/AIDS: No Hx Splenectomy or Spleen Trauma: No Other PMH: multiple Bowel obstructions , opiod dependence, chronic low backpain , GERD, cholelithiasis, chronic colitis, abdominal bloating, chronic N/V, cholelithiasis, gi bleed (2010), mutiple back surgeries, scoleosis, deginerative spine diease. psh- appy, nena, hysterectomy, gi surgery, right shoulder surgery, left knee surgery, BACK SURGERY - Social History Smoking Status: Heavy smoker Constitutional: Initial Vital Signs Temperature (C) 36.6 C 08/28/17 19:18 Heart Rate 104 H 08/28/17 19:18 Respiratory Rate 20 08/28/17 19:18 Blood Pressure 135/88 H 08/28/17 19:18 O2 Sat (%) 91 L 08/28/17 19:18 O2 Delivery Mode Room Air Allergies/Adverse Reactions: No Known Allergies Allergy (Verified 05/07/17 12:32) Home Medications: Medication Instructions Recorded Estradiol [Climara] 0.025 mg TD Q7D 01/19/17 Methadone HCl [Methadone HCl 10 mg 20 mg PO TID 01/19/17 (*)] Acetaminophen [Tylenol 325mg (*)] 650 mg PO Q4HRS PRN #0 tab 01/20/17 oxyCODONE IR [Oxycodone Ir (*)] 5 - 10 mg PO Q4-6PRN PRN 02/28/17 Sennosides [Senna Lax] 8.6 mg PO DAILY #30 tablet 05/08/17 Ondansetron Odt [Zofran Odt 4 mg 4 mg PO Q4 PRN #20 tab 08/28/17 (RX)] Medical Decision Making ED Course/Re-evaluation: CHIEF COMPLAINT: Cyclic vomiting HISTORY OF PRESENT ILLNESS: The patient is a 72 y/o female with a history of cyclic vomiting complaining of persistent vomiting onset at midnight yesterday, almost 48 hours ago. She's been evaluated in the ED and admitted multiple times for similar symptoms. She has a history of chronic abdominal pain on continuous narcotics and multiple abdominal surgeries. Her symptoms today feel exactly the same as prior episodes. She denies fever, chills, or infectious symptoms. No recent illness or trauma. REVIEW OF SYSTEMS: A 10 point review of systems was performed and is negative with the exception of the elements mentioned in the history of present illness. PHYSICAL EXAM: HR, BP, O2 Sat, RR. Temp noted General Appearance: Initially sleeping, then alert, well-hydrated, appropriate , and appears uncomfortable. Head: Atraumatic without scalp tenderness or obvious injury Eyes: Pupils equal, round, reactive to light and accommodation, EOMI, no trauma , no injection. Ears: Clear bilaterally, no perforation, normal landmarks Nose: Atraumatic, no rhinorrhea, clear. Throat: Mucus membranes moist. Neck: Supple, nontender, no lymphadenopathy. Respiratory: No retractions, no distress, no wheezes, and no accessory muscle use. Lungs are clear to auscultation bilaterally. Cardiovascular: Regular rate and rhythm, no murmurs, rubs, or gallops. Good capillary refill all extremities. Gastrointestinal: Abdomen is soft, mild diffuse tenderness, non-distended, no masses, no rebound, no guarding, no peritoneal signs. Musculoskeletal: Normal active ROM of all extremities, atraumatic. Neurological: Alert, appropriate, and interactive. The patient has non-focal cranial nerves, motor, sensory, and cerebellar exam. Skin: No rashes, good turgor, no nodules on palpation. Past medical history: Chronic abdominal pain on continuous narcotics, cyclic vomiting Past surgical history: hysterectomy, cholecystectomy, appendectomy, lysis of adhesions for obstructions Family history: noncontributory Social history: at bedside. Uses marijuana. Lives in [place]. DIFFERENTIAL DIAGNOSIS: The differential diagnosis for the patient's nausea and vomiting included but was not limited to cyclic vomiting, chronic opioid use , gastroenteritis, gastritis, appendicitis, and medication side effect. MEDICAL DECISION MAKING: This is a 72 y/o female with history of chronic pain and cyclic vomiting syndrome who presents with the same. Her abdomen is benign, she is afebrile, and she is hemodynamically stable. No imaging indicated at this time. Plan for labs and symptomatic treatment with 1mg IV Ativan, 4mg IV Zofran, 5mg IV Ketamine, and 1L IV NS. Reassessed patient. She is feeling "100% better" and is ready to go home. Abdomen remains benign. Patient will be discharged home with Zofran and standard vomiting care and follow up instructions. Return precautions discussed. She and are comfortable with this plan. - Data Points Laboratory Results: Laboratory Results 08/28/17 20:50 08/28/17 20:50 08/28/17 08/28/17 20:50 20:50 WBC 17.09 10^3/uL H 10^3/uL (3.80-9.50) RBC 5.68 10^6/uL H 10^6/uL (4.18-5.33) Hgb 19.0 g/dL H g/dL (12.6-16.3) Hct 53.0 % H % (38.0-47.0) MCV 93.3 fL fL (81.5-99.8) MCH 33.5 pg pg (27.9-34.1) MCHC 35.8 g/dL g/dL (32.4-36.7) RDW 13.2 % % (11.5-15.2) Plt Count 274 10^3/uL 10^3/uL (150-400) MPV 8.9 fL fL (8.7-11.7) Neut % (Auto) 87.2 % H % (39.3-74.2) Lymph % (Auto) 6.3 % L % (15.0-45.0) [place] % (Auto) 5.3 % % (4.5-13.0) Eos % (Auto) 0.0 % L % (0.6-7.6) Baso % (Auto) 0.6 % % (0.3-1.7) Nucleat RBC Rel Count 0.0 % % (0.0-0.2) Absolute Neuts (auto) 14.90 10^3/uL H 10^3/uL (1.70-6.50) Absolute Lymphs (auto) 1.07 10^3/uL 10^3/uL (1.00-3.00) Absolute Monos (auto) 0.91 10^3/uL H 10^3/uL (0.30-0.80) Absolute Eos (auto) 0.00 10^3/uL L 10^3/uL (0.03-0.40) Absolute Basos (auto) 0.10 10^3/uL 10^3/uL (0.02-0.10) Absolute Nucleated RBC 0.00 10^3/uL 10^3/uL (0-0.01) Immature Gran % 0.6 % % (0.0-1.1) Immature Gran # 0.11 10^3/uL H 10^3/uL (0.00-0.10) Sodium 141 mEq/L mEq/L (134-144) Potassium 3.9 mEq/L mEq/L (3.5-5.2) Chloride 103 mEq/L mEq/L (97-110) Carbon Dioxide 21 mEq/l L mEq/l (22-31) Anion Gap 17 mEq/L H mEq/L (8-16) BUN 7 mg/dL mg/dL (7-23) Creatinine 0.7 mg/dL mg/dL (0.6-1.0) Estimated GFR > 60 Glucose 169 mg/dL H mg/dL (70-100) Calcium 9.9 mg/dL mg/dL (8.5-10.4) Total Bilirubin 0.8 mg/dL mg/dL (0.1-1.4) Conjugated Bilirubin 0.3 mg/dL mg/dL (0.0-0.5) Unconjugated Bilirubin 0.5 mg/dL mg/dL (0.0-1.1) AST 29 IU/L IU/L (14-46) ALT 24 IU/L IU/L (9-52) Alkaline Phosphatase 116 IU/L IU/L (38-126) Total Protein 7.3 g/dL g/dL (6.3-8.2) Albumin 4.7 g/dL g/dL (3.5-5.0) Lipase 44 IU/L IU/L (23-300) Medications Given: Discontinued Medications Ketamine HCl (Ketamine) 5 mg IVP EDNOW ONE Stop: 08/28/17 20:37 Last Admin: 08/28/17 21:03 Dose: 5 mg Ketorolac Tromethamine (Toradol) 30 mg IVP EDNOW ONE Stop: 08/28/17 20:30 Last Admin: 08/28/17 21:02 Dose: 30 mg Lorazepam (Ativan) 1 mg PO EDNOW ONE Stop: 08/28/17 20:37 Last Admin: 08/28/17 20:52 Dose: Not Given Lorazepam (Ativan Injection) 1 mg IVP EDNOW ONE Stop: 08/28/17 20:54 Last Admin: 08/28/17 21:01 Dose: 1 mg Ondansetron HCl (Zofran) 4 mg IVP EDNOW ONE Stop: 08/28/17 20:37 Last Admin: 08/28/17 21:02 Dose: 4 mg Departure - Departure Disposition: Home, Routine, Self-Care Clinical Impression: Cyclical vomiting syndrome Condition: Good Instructions: Ondansetron (By mouth), Cyclic Vomiting Syndrome (ED) Additional Instructions: 1. Take Zofran as prescribed for nausea and vomiting. 2. Increase fluid intake. 3. Follow up with your primary care provider for unimproved symptoms over the next few days. Referrals: Veronique Osei MD [[facility] [place] Care Provider] - As per Instructions Prescriptions: Ondansetron Odt [Zofran Odt 4 mg (RX)] 4 mg PO Q4 PRN #20 tab PRN Reason: Nausea/Vomiting, Use 1st Report Scribed for: Wali Baker Report Scribed by: Ree Rodriguez Date of Report: 08/28/17 Time of Report: 20:32
[2017-08-28] MEDS ORDERED: KETOROLAC 30 MG/1 ML SDV IVP ONE (20:29)
[2017-08-28] MEDS ORDERED: ONDANSETRON 4 MG/2 ML VIAL IVP ONE (20:36)
[2017-08-28] MEDS ORDERED: LORazepam 1 MG TAB PO ONE (20:36)
[2017-08-28] MEDS ORDERED: KETAMINE 100 MG/10 ML SYR IVP ONE (20:36)
[2017-08-28] MEDS ORDERED: LORazepam 2 MG/ML INJ ONE (20:44)
[2017-08-28] MEDS ORDERED: LORazepam 2 MG/ML INJ IVP ONE (20:53)
[2017-08-28 21:10] LABS: PLATELET COUNT 274 10^3/uL (150-400)
[2017-08-28] MEDS ORDERED: ONDANSETRON 4MG PREPACK#2 BTL TAKEHOME ONE (21:47)
[2017-08-28 23:24] VITALS: BP 156/89; PULSE 95; RESP 19; TEMP 98.4; O2SAT 98
== END 2017-08-28 23:24 | disposition home or self-care (01) ==
DX: G43.A0 Cyclical vomiting, in migraine, not intractable (principal); F17.200 Nicotine dependence, unspecified, uncomplicated
CPT/HCPCS: 96374; 96375; 99284; J1885; J2060; J2405

== ENCOUNTER 2017-10-18 07:37 | Inpatient (IN) | payer OTHER ==
[2017-10-18] MEDS ORDERED: KETAMINE 200 MG/20 ML VIAL IVP ONE (07:51)
[2017-10-18] MEDS ORDERED: ONDANSETRON 4 MG/2 ML VIAL IVP ONE (07:52)
[2017-10-18] MEDS ORDERED: LORazepam 2 MG/ML INJ IVP ONE (07:52)
[2017-10-18] MEDS ORDERED: NS 1,000 ML IV ONE (07:55)
--- NOTE | 2017-10-18 07:55 | EDPHY ---
H & P Stated Complaint: n/v Time Seen by Provider: 10/18/17 07:43 HPI/ROS: CHIEF COMPLAINT: Vomiting HISTORY OF PRESENT ILLNESS: 72-year-old female with cyclic vomiting syndrome and chronic pain, on methadone, presents with intractable vomiting. Onset of vomiting at 4:00 a.m., unable to tolerate oral fluids or food since then. Associated with generalized moderate abdominal pain. Similar to multiple prior episodes of cyclic vomiting syndrome. Last ED visit in August 2017; treated with IV Zofran, Ativan and ketamine, which completely resolved her symptoms. REVIEW OF SYSTEMS: Constitutional: No fever Eyes: No visual changes ENT: No sore throat Respiratory: No cough, no shortness of breath Cardiac: No chest pain Genitourinary: No hematuria, no dysuria Musculoskeletal: No leg pain or swelling Skin: No rash Neurological: No headache Psychiatric: depression - Personal History Current Tetanus/Diphtheria Vaccine: Yes Current Tetanus Diphtheria and Acellular Pertussis (TDAP): Yes Tetanus Vaccine Date: LESS THAN 10 YEARS - Medical/Surgical History Hx Asthma: No Hx Chronic Respiratory Disease: No Hx Diabetes: No Hx Cardiac Disease: No Hx Renal Disease: No Hx Cirrhosis: No Hx Alcoholism: No Hx HIV/AIDS: No Hx Splenectomy or Spleen Trauma: No Other PMH: multiple Bowel obstructions , opiod dependence, chronic low backpain , GERD, cholelithiasis, chronic colitis, abdominal bloating, chronic N/V, cholelithiasis, gi bleed (2010), mutiple back surgeries, scoleosis, deginerative spine diease. psh- appy, nena, hysterectomy, gi surgery, right shoulder surgery, left knee surgery, BACK SURGERY - Social History Smoking Status: Heavy smoker Constitutional: Initial Vital Signs Temperature (C) 36.2 C 10/18/17 07:44 Heart Rate 82 10/18/17 07:44 Respiratory Rate 18 10/18/17 07:44 Blood Pressure 177/98 H 10/18/17 07:44 O2 Sat (%) 92 10/18/17 07:44 O2 Delivery Mode Room Air Allergies/Adverse Reactions: No Known Allergies Allergy (Verified 10/18/17 07:42) Home Medications: Medication Instructions Recorded Estradiol [Climara] 0.025 mg TD WE 01/19/17 Methadone HCl [Methadone HCl 10 mg 20 mg PO TID 01/19/17 (*)] Acetaminophen [Tylenol 325mg (*)] 650 mg PO Q4HRS PRN #0 tab 01/20/17 oxyCODONE IR [Oxycodone Ir (*)] 5 - 10 mg PO Q4-6PRN PRN 02/28/17 Sennosides [Senna Lax] 8.6 mg PO DAILY #30 tablet 05/08/17 Ondansetron Odt [Zofran Odt 4 mg 4 mg PO Q4 PRN #20 tab 08/28/17 (RX)] Medical Decision Making ED Course/Re-evaluation: Clinical presentation consistent with recurrent cyclic vomiting syndrome. IV normal saline 1 L, Zofran 4 mg IV, Ativan 1 mg IV and Ketamine 5 mg IV given. 11:00 a.m.-still vomiting, despite the above medications. Abdominal exam remains benign. Reglan 10mg IV and Benadryl 25mg IV given. noon-continues to vomit, appears miserable. Abdominal exam remains benign. The hospitalist service was consulted for admission for intractable vomiting. Differential Diagnosis: Differential diagnosis includes though it is not limited to appendicitis, cholecystitis, diverticulitis, pyelonephritis, bowel perforation, small bowel obstruction. - Data Points Laboratory Results: Laboratory Results 10/18/17 08:00 10/18/17 08:00 Medications Given: Hydralazine HCl (Apresoline) 10 mg IVP Q6HRS PRN PRN Reason: sbp >160 Stop: 04/16/18 16:39 Last Admin: 10/18/17 18:15 Dose: 10 mg Sodium Chloride (Ns) 1,000 mls @ 100 mls/hr IV CONT BIANCA Stop: 04/16/18 15:29 Last Admin: 10/19/17 02:57 Dose: 1,000 mls Methadone HCl (Methadone Hcl) 20 mg PO TID BIANCA Stop: 10/28/17 15:59 Last Admin: 10/18/17 23:38 Dose: 20 mg Metoprolol Tartrate (Lopressor Injection) 5 mg IVP Q6 PRN PRN Reason: SBP BP >160 Stop: 04/16/18 18:45 Last Admin: 10/18/17 19:34 Dose: 5 mg Ondansetron HCl (Zofran) 4 mg IVP Q4HRS PRN PRN Reason: Nausea/Vomiting, Can't Take PO Stop: 04/16/18 15:08 Last Admin: 10/18/17 22:50 Dose: 4 mg Senna (Senokot) 1 tab PO DAILY BIANCA Stop: 04/16/18 15:14 Last Admin: 10/18/17 17:36 Dose: Not Given Discontinued Medications Diphenhydramine HCl (Benadryl Injection) 25 mg IVP EDNOW ONE Stop: 10/18/17 11:17 Last Admin: 10/18/17 12:20 Dose: 25 mg Sodium Chloride (Ns) 1,000 mls @ 0 mls/hr IV ONCE ONE; Wide Open PRN Reason: Protocol Stop: 10/18/17 07:56 Last Admin: 10/18/17 08:17 Dose: 1,000 mls Ketamine HCl (Ketamine) 5 mg IVP EDNOW ONE Stop: 10/18/17 07:52 Last Admin: 10/18/17 08:17 Dose: Not Given Lorazepam (Ativan Injection) 1 mg IVP EDNOW ONE Stop: 10/18/17 07:53 Last Admin: 10/18/17 08:12 Dose: 1 mg Metoclopramide HCl (Reglan Injection) 10 mg IVP EDNOW ONE Stop: 10/18/17 11:17 Last Admin: 10/18/17 12:20 Dose: 10 mg Morphine Sulfate (Morphine) 2 - 4 mg IVP Q3H PRN PRN Reason: Pain, Severe Unable to Take PO Stop: 10/28/17 15:17 Last Admin: 10/18/17 16:51 Dose: 2 mg Morphine Sulfate (Morphine) 4 mg IVP ONCE ONE Stop: 10/18/17 19:01 Last Admin: 10/18/17 18:56 Dose: 4 mg Ondansetron HCl (Zofran) 4 mg IVP EDNOW ONE Stop: 10/18/17 07:53 Last Admin: 10/18/17 08:12 Dose: 4 mg Departure - Departure Disposition: Home, Routine, Self-Care Clinical Impression: Cyclic vomiting syndrome Qualifiers: Vomiting Intractability: intractable Nausea presence: with nausea Qualified Code(s): G43.A1 - Cyclical vomiting, intractable Condition: Fair
[2017-10-18 08:12] LABS: PLATELET COUNT 218 10^3/uL (150-400)
[2017-10-18] MEDS ORDERED: METOCLOPRAMIDE 10 MG/2 ML VIAL IVP ONE (11:16)
--- NOTE | 2017-10-18 11:37 | ASMTLACE ---
ANGIE Acuity / Level of Answers: Yes Care: Did the patient have an inpatient admission? Comorbidities - select Answers: Opioid dependence all that apply / Chronic pain # of Emergency department Answers: 3-4 visits in the last 6 months Social determinants Answers: History of substance abuse (ETOH, street drugs, prescription drugs, etc.) Score: 13 Date Signed: 10/18/2017 11:33 AM Electronically Signed By:Whitney Colón RN
[2017-10-18] MEDS ORDERED: oxyCODONE IR 5 MG TAB PO PRN (15:07)
[2017-10-18] MEDS ORDERED: PROMETHAZINE HCL 25 MG/ML INJ IVP PRN (15:09)
[2017-10-18] MEDS ORDERED: PROMETHAZINE HCL 25 MG TAB PO PRN (15:09)
[2017-10-18] MEDS ORDERED: ONDANSETRON DISINTEGRATING 4 MG TAB PO PRN (15:09)
[2017-10-18] MEDS ORDERED: METOCLOPRAMIDE 10 MG/2 ML VIAL IVP PRN (15:09)
[2017-10-18] MEDS ORDERED: ACETAMINOPHEN 325 MG TAB PO PRN (15:09)
[2017-10-18] MEDS ORDERED: BISACODYL 10 MG SUPP PR PRN (15:11)
[2017-10-18] MEDS ORDERED: LACTULOSE 20 GM/30 ML UDCUP PO PRN (15:11)
[2017-10-18] MEDS ORDERED: MAGNESIUM HYDROXIDE 30 ML UDCUP PO PRN (15:11)
[2017-10-18] MEDS ORDERED: POLYETHYLENE GLYCOL 3350 17 GM PKT PO PRN (15:11)
[2017-10-18] MEDS: METHADONE HCL 10 MG TAB PO SCH ×4 (16:13→23:38)
[2017-10-18] MEDS: SENNOSIDES 1 TAB PO SCH ×2 (16:14→17:36)
[2017-10-18] MEDS: ONDANSETRON 4 MG/2 ML VIAL IVP PRN ×2 (16:20→22:50)
[2017-10-18] MEDS: NS 1,000 ML IV SCH (16:23)
[2017-10-18] MEDS ORDERED: hydrALAZINE 20 MG/ML VIAL IVP PRN (16:40)
[2017-10-18] MEDS ORDERED: METOPROLOL TARTRATE 5 MG/5 ML INJ IVP PRN (18:46)
[2017-10-18] MEDS ORDERED: HYDROmorphONE/DILAUDID 1 MG/ML INJ IVP PRN ×2 (19:34→19:46)
[2017-10-18] MEDS ORDERED: LORazepam 2 MG/ML INJ IVP PRN (19:43)
--- NOTE | 2017-10-18 20:24 | GHP ---
[f rep st] HISTORY AND PHYSICAL DATE OF ADMISSION: 10/18/2017 CHIEF COMPLAINT: Nausea and vomiting. HISTORY OF PRESENT ILLNESS: The patient is a 72-year-old female with a history of chronic pain and c hronic continuous opioid dependence, on 60 mg of methadone daily, who [facility] with nausea and vomiting. She has had a history of prior bowel obstructions and suffers from c onstipation in the setting of high-dose opiates. In addition, she has previously been diagnosed with cyclic vomiting syndrome. She reports she woke up this morning at 4 a.m. and started vomiting. She was unable to keep any food or liquids down. In addition, she was not able to tolerate her methadon e. She complains of abdominal discomfort. In the emergency department, she was given Zofran, Reglan , lorazepam, and Ketamine, and continued to have refractory vomiting. She is admitted to the [facility] for further management. PAST MEDICAL HISTORY: 1. Chronic pain. 2. Chronic continuous opioid dependence, on 60 mg of methadone daily. 3. Cyclic vomiting syndrome. 4. History of perforated gastric ulcer, status post operative repair. 5. Possible SMA syndrome. 6. History of recurrent small-bowel obstructions. PAST SURGICAL HISTORY: Hysterectomy, cholecystectomy, appendectomy, and lysis of adhesions for prior bowel obstructions. MEDICATIONS: Please see Alo7 for completed outpatient medication list. ALLERGIES: She has no known drug allergies. SOCIAL HISTORY: The patient lives in [place]. She is . She uses medical marijuana. She denie s alcohol or tobacco use. FAMILY HISTORY: Reviewed and noncontributory. REVIEW OF SYSTEMS: A 10-point review of systems was performed and is negative except as per HPI. PHYSICAL EXAMINATION: VITAL SIGNS: Blood pressure was 183/100, though on recheck was 116/62. Heart rate 70s to 90s, respiratory rate 16. She was 94% on room air on arrival, 91% on 1 L. GENERAL: On my evaluation, the patient is somnolent and withdrawn. She awakens to verbal stimuli, but is not co operative with answering questions. HEENT: Head is atraumatic, normocephalic. Pupils equal, round, reactive to light. Extraocular muscles intact. Oropharynx is clear. Mucous membranes are dry. NE CK: Supple. There is no JVD. HEART: Regular rate and rhythm. LUNGS: Clear to auscultation bilat erally. ABDOMEN: Soft, nondistended, diffusely tender to palpation without rebound, rigidity, or gu arding. Hypoactive bowel tones are present. EXTREMITIES: Without cyanosis, clubbing, or edema. NE UROLOGIC: Grossly nonfocal. LABORATORY DATA: CBC reveals a white blood cell count of 14.3, hemoglobin 18.1, which is down from 1 9 from 3 weeks ago. Complete metabolic panel reveals normal electrolytes, normal renal function with a creatinine of 0.6, glucose of 163. LFTs are normal. Lipase is normal. ASSESSMENT/PLAN: The patient is a 72-year-old female who is admitted to the hospital with refractory nausea and vomiting. 1. Nausea and vomiting. She has a reported history of cyclic vomiting syndrome and does use chronic marijuana. She also has a history of recurrent small bowel obstruction and constipation related to her high-dose opioid use. Abdomen x-ray is obtained on admission and shows evidence of severe consti pation, though no dilated loops of bowel, air-fluid levels, free air, or evidence of obstruction is s een. At this point, I think she is having significant opioid withdrawal as she has not been able to tolerate her methadone. She will receive supportive care with intravenous fluids and antiemetics. W e will provide intravenous Dilaudid until she can tolerate her oral methadone. A clear liquid diet i s ordered for now. 2. Hypertension. Her blood pressures are intermittently elevated and I suspect this may be related to opioid withdrawal. She is unable to tolerate oral medications. We will provide p.r.n. intravenou s hydralazine and p.r.n. intravenous metoprolol as needed for blood pressure management. 3. Chronic opiate dependence, currently in withdrawal. We will provide intravenous Dilaudid to prev ent withdrawal from opiates and resume her methadone as soon as she can tolerate p.o.'s. Supportive care with p.r.n. Ativan. 4. Leukocytosis. This may be a stress reaction in the setting of her acute vomiting syndrome. She actually has a chronic leukocytosis, frequently presenting with a white blood cell count between 11 a nd 15. We will hydrate and recheck this in the morning. I do not see any indication for antibiotics at this time. 5. Constipation, undoubtedly secondary to her chronic opioid use. Bowel protocol is ordered. 6. Deep venous thrombosis prophylaxis. Patient is medium risk, will give Lovenox. 7. Code status: Patient is full code. DISPOSITION: Patient is admitted to observation status. /[id number]/MODL
[2017-10-19] MEDS: NS 1,000 ML IV SCH (02:57)
[2017-10-19 05:57] LABS: PLATELET COUNT 212 10^3/uL (150-400)
[2017-10-19] MEDS: METHADONE HCL 10 MG TAB PO SCH ×3 (09:04→21:41)
[2017-10-19] MEDS: ONDANSETRON 4 MG/2 ML VIAL IVP PRN (09:05)
[2017-10-19] MEDS: ENOXAPARIN 40 MG/0.4 ML SYR SC SCH (09:05)
[2017-10-19] MEDS: SENNOSIDES 1 TAB PO SCH (09:05)
--- NOTE | 2017-10-19 17:06 | HOSPPROG ---
Hospitalist Progress Note Assessment/Plan: Cyclic vomiting syndrome - symptoms resolved with supportive care overnight. This may be provoked by her chronic marijuana use and causes her to go into opioid withdrawal when she vomits her methadone. Recommended cessation, she would rather taper off methadone than give up marijuana. Opioid withdrawal - Resolved. She is again tolerating her Methadone. Hypoxia - this is mild, though 90% on 1 LPM while awake. Some of her mild desats to 87% while asleep could be related to her opioid use. -check CXR -needs outpt sleep study, increased risk for sleep apnea with chronic opioid use Chronic pain - cont outpt regimen Full code Dispo - change to inpt for ongoing evaluation of hypoxemia, likely d/c in am if able to wean off O2 Objective: Vital Signs Temp Pulse Resp BP Pulse Ox 36.8 C 76 14 100/58 L 91 L 10/19/17 16:40 10/19/17 16:40 10/19/17 16:40 10/19/17 16:40 10/19/17 16:40 Laboratory Results 10/19/17 05:16 10/18/17 10/19/17 10/20/17 05:59 05:59 05:59 Intake Total 1319 Output Total 800 Balance 519 - Physical Exam Constitutional: no apparent distress Eyes: PERRL Ears, Nose, Mouth, Throat: moist mucous membranes Cardiovascular: regular rate and rhythym Respiratory: no respiratory distress Gastrointestinal: normoactive bowel sounds, soft, non-tender abdomen Musculoskeletal: full muscle strength Neurologic: AAOx3 Psychiatric: interacting appropriately ICD10 Worksheet Patient Problems: Problems Problem Status Onset Cyclic vomiting syndrome Acute opiod Active Abdominal pain Acute Abdominal pain Acute Acute abdominal pain Acute Acute encephalopathy Acute Bowel obstruction Acute Cyclical vomiting syndrome Acute Intractable vomiting Acute Leukocytosis Acute Nausea Acute Nausea & vomiting Acute Opiate dependence, continuous Acute Vomiting Acute
[2017-10-20 04:55] LABS: PLATELET COUNT 167 10^3/uL (150-400)
[2017-10-20] MEDS: ONDANSETRON 4 MG/2 ML VIAL IVP PRN (07:32)
[2017-10-20] MEDS: ENOXAPARIN 40 MG/0.4 ML SYR SC SCH (08:30)
[2017-10-20] MEDS: SENNOSIDES 1 TAB PO SCH (08:30)
[2017-10-20] MEDS: METHADONE HCL 10 MG TAB PO SCH (08:30)
[2017-10-20 08:54] VITALS: BP 131/73; PULSE 90; RESP 19; TEMP 97.1; O2SAT 95
--- NOTE | 2017-10-20 09:04 | PDMN ---
Medical Necessity Medical necessity: change to IP; los>2mn for hypoxia w/O2 sats 87 w/sleep, possibly r/t opioid use; requires ongoing eval of hypoxemia and weaning of O2; comorbid chronic pain w/opioid dependence, cyclic vomiting syndrome, ? SMA syndrome, hx SBO's and perforated gastric ulcer; per order and progress note 10/19
--- NOTE | 2017-10-20 09:45 | PDIAF ---
- Diagnosis Diagnosis: chronic pain, opioid dependence Code Status: Full Code - Medication Management Discharge Medications: Medications to Continue on Transfer Estradiol [Climara] 0.025 mg TD WE 01/19/17 [Last Taken 10/11/17] Methadone HCl [Methadone HCl 10 mg (*)] 20 mg PO TID 01/19/17 [Last Taken 14:00] Acetaminophen [Tylenol 325mg (*)] 650 mg PO Q4HRS PRN #0 tab 01/20/17 [Last Taken Unknown] oxyCODONE IR [Oxycodone Ir (*)] 5 - 10 mg PO Q4-6PRN PRN 02/28/17 [Last Taken ] Sennosides [Senna Lax] 8.6 mg PO DAILY #30 tablet 05/08/17 [Last Taken 10/17/17] Ondansetron Odt [Zofran Odt 4 mg (*)] 4 mg PO Q4 PRN #20 tab 08/28/17 [Last Taken Unknown] Discharge Medications: Refer to the Discharge Home Medication list for PRN reason. - Orders Services needed: Physical Therapy Isolation Type: None Diet Recommendation: no restrictions on diet - Follow Up Care Current Providers and Referrals: NONE *PRIMARY CARE P,. [Primary Care Provider] - As per Instructions
--- NOTE | 2017-10-20 10:27 | ASMTCMCOM ---
CM Note CM Note Notes: Pt admitted for cyclic vomitting. Pt will DC today with [facility] PT. [facility] covers the area in [place] where pt lives. Pt's PCP is Julienne Davidson in [place]. No other needs identified. Date Signed: 10/20/2017 10:26 AM Electronically Signed By:Lynne Noguera LCSW
--- NOTE | 2017-10-20 12:01 | GDS ---
[f rep st] DISCHARGE SUMMARY DISCHARGE DIAGNOSES: 1. Cyclic vomiting syndrome, likely secondary to a chronic daily marijuana use. 2. Chronic opioid dependence, presenting in acute opioid withdrawal. 3. Hypoxemia, likely secondary to restriction in the setting of scoliosis, 95% on room air on the da y of discharge. 4. Gait instability. Patient uses a walker, and will be discharging with home PT. IMAGING STUDIES/PROCEDURES: Abdominal plain film October 18, 2017, showed evidence of severe constip ation, but no evidence of a small bowel obstruction. HISTORY: For details, please see dictated history and physical dated October 18, 2017. In brief, th e patient is a 72-year-old female with history of chronic pain and chronic opioid dependence on 60 mg of methadone daily, who presents to the emergency department with refractory nausea and vomiting. T his occurs on a monthly basis, and I suspect is likely due to her chronic marijuana use. Unfortunate ly, when she starts vomiting her methadone, she develops acute severe opioid withdrawal with associat ed hypertension. HOSPITAL COURSE: She required IV opiate therapy and antiemetics. Her symptoms resolved. She was ab le to tolerate her methadone, and she is back to her baseline today, eating and drinking well, with n o further nausea or vomiting and is normotensive. She had some mild hypoxemia, which I ultimately irving spect is related to her scoliosis and restriction of diaphragmatic motion. With some positional stra tegies provided by Physical Therapy, she is moving air better today, satting 95% on room air. I disc ussed with her her frustration of recurrent hospitalizations and recommend she consider discontinuati on of marijuana. She also would like to get off methadone and will talk to her prescribing physician regarding a long-term taper plan. She does require IV opiates when these events occur due to uninte ntional withdrawal from her cyclic nausea and vomiting. Patient is back to her baseline and wishes t o discharge home. DISPOSITION: Patient is discharged home with home health for physical therapy services. DISCHARGE MEDICATIONS: Please see [facility] for complete updated outpatient medication list. There a re no new medications on discharge. She will continue all outpatient medications as previously presc ribed. FOLLOWUP: Patient will follow up with her primary care physician. /[id number]/MODL
--- NOTE | 2017-10-20 17:14 | ASDISCHSUM ---
Discharge Information Plan Status: Medically Cleared to Leave: Discharge Date:10/20/2017 11:20 AM CM D/C Disposition: ADT D/C Disposition:Home Health Service Projected Discharge Date:10/20/2017 11:00 AM Transportation at D/C: Discharge Delay Reason: Follow-Up Date:10/20/2017 11:00 AM Discharge Slot: Final Diagnosis: Placement Information Referral Type:*Home Health Care Services Referral ID:[id number] Provider Name:[facility] Address 1:[address] Address 2: City:[place] Selection Factors: State:[place] Patient Contact Information Contact Name:DANIEL Relationship: Address:[address] City:[place] Alternate Phone: State/Zip Code:[place] [address] Email: Financial Information Financial Class:Medicare Primary Plan Desc:MEDICARE INPATIENT Primary Plan Number:[id number] Secondary Plan Desc:[facility] Secondary Plan Number:[id number] Assessment Information LACE LACE Acuity / Level of Answers: Yes Care: Did the patient have an inpatient admission? Comorbidities - select Answers: Opioid dependence all that apply / Chronic pain # of Emergency department Answers: 3-4 visits in the last 6 months Social determinants Answers: History of substance abuse (ETOH, street drugs, prescription drugs, etc.) Score: 13 Date Signed: 10/18/2017 11:33 AM Electronically Signed By:Whitney Colón RN [facility] Progress Note CM Note CM Note Notes: Pt admitted for cyclic vomitting. Pt will DC today with HC PT. [facility] covers the area in [place] where pt lives. Pt's PCP is Julienne Davidson in [place]. No other needs identified. Date Signed: 10/20/2017 10:26 AM Electronically Signed By:Lynne Noguera LCSW Intervention Information Intervention Type:*PIERCE-Signed Date of Service:10/19/2017 11:25 AM Patient Type:Observation Staff Member:Cecille Dickerson Hours: Discipline: Severity: Comment: Intervention Type:*Marlon 73 Date of Service:10/20/2017 01:49 PM Patient Type:Inpatient Staff Member:FAY Peguero Susan Hours: Discipline: Severity: Comment:
== END 2017-10-20 11:20 | disposition home health service (06) | DRG 103 ==
LOC: F1N 12:42 → OBSVTOIN 10-19 17:21
PROVIDERS: ADMIT Hospitalist; ATTEND Hospitalist
DX: G43.A0 Cyclical vomiting, in migraine, not intractable (principal); T40.7X5A Adverse effect of cannabis (derivatives), initial encounter; F11.23 Opioid dependence with withdrawal; R09.02 Hypoxemia; M41.9 Scoliosis, unspecified; G89.29 Other chronic pain; K59.03 Drug induced constipation; T40.2X5A Adverse effect of other opioids, initial encounter; K21.9 Gastro-esophageal reflux disease without esophagitis; F17.210 Nicotine dependence, cigarettes, uncomplicated; Z87.11 Personal history of peptic ulcer disease
CPT/HCPCS: 96374; 97116-GP; 97161-GP; G0378; G8978-GP-CJ; G8979-GP-CI; J0360; J1200; J1650; J2060; J2270; J2405; J2765

== ENCOUNTER 2018-01-09 06:28 | Inpatient (IN) | payer OTHER ==
[2018-01-09] MEDS ORDERED: ONDANSETRON 4 MG/2 ML VIAL ONE (06:34)
--- NOTE | 2018-01-09 06:54 | EDPHY ---
H & P Stated Complaint: NV-hx of SBO-opiod dependence Time Seen by Provider: 01/09/18 06:46 HPI/ROS: CHIEF COMPLAINT: Vomiting HISTORY OF PRESENT ILLNESS: This is a 72-year-old female with history of chronic pain, on methadone, who presents with intractable vomiting that began 4 hr ago. She smokes marijuana daily. She has been diagnosed with cyclic vomiting syndrome and was admitted with a similar problem in October of this year. She reports mild abdominal pain. She had a bowel movement yesterday. She has a history of multiple abdominal surgeries and bowel obstruction also. She has not had fever. She denies urinary symptoms. She reports a low back pain, which is chronic and unchanged for her. In the year 2017 she had 7 hospitalizations for similar symptoms along with 2 emergency department visits with discharge from the ED. REVIEW OF SYSTEMS: A ten point review of systems was performed and is negative with the exception of the items mentioned in the HPI. Past medical history: 1. Chronic pain 2. Opioid dependence, currently on methadone every 6 hr 3. Recurrent bowel obstruction 4. Chronic colitis 5. GERD 6. GI bleed in 2010 Past surgical history: 1. Multiple back surgeries 2. Right shoulder surgery 3. Left knee surgery 4. Appendectomy 5. Cholecystectomy 6. Hysterectomy Social history: She is here with her . She smokes 1 pack of cigarettes daily. As above, she has a history of chronic pain and opioid dependence, currently on methadone 20 mg q.6 hours with oxycodone p.r.n. (She states that she uses this rarely) General Appearance: Alert. Vital signs reviewed. Actively vomiting. Eyes: Pupils equal and round, no conjunctival injection, no discharge. Anicteric. ENT, Mouth: Mucous membranes are slightly dry, no oropharyngeal erythema or edema. Neck: No lymphadenopathy, supple. Respiratory: Lungs are clear to auscultation; no wheezes, rales, or rhonchi. Cardiovascular: Regular rate and rhythm; no murmur, rub, or gallop. Gastrointestinal: Abdomen is soft and mildly diffusely tender, no masses or organomegaly, bowel sounds normal. Skin: Mildly diaphoretic and dry, no rashes on exposed skin, normal color. Back: Nontender to palpation over the thoracolumbar spine. Well-healed midline surgical incisions. No CVAT. Extremities: No lower extremity edema, no calf tenderness or swelling. Neurological: Alert and oriented. Moving all four extremities easily and equally. Psychiatric: Flat affect. Curled in position. - Personal History Current Tetanus Diphtheria and Acellular Pertussis (TDAP): No Tetanus Vaccine Date: LESS THAN 10 YEARS - Medical/Surgical History Hx Asthma: No Hx Chronic Respiratory Disease: No Hx Diabetes: No Hx Cardiac Disease: No Hx Renal Disease: No Hx Cirrhosis: No Hx Alcoholism: No Hx HIV/AIDS: No Hx Splenectomy or Spleen Trauma: No Other PMH: multiple Bowel obstructions , opiod dependence, chronic low backpain , GERD, cholelithiasis, chronic colitis, abdominal bloating, chronic N/V, cholelithiasis, gi bleed (2010), mutiple back surgeries, scoleosis, deginerative spine diease. psh- appy, nena, hysterectomy, gi surgery, right shoulder surgery, left knee surgery, BACK SURGERY - Social History Smoking Status: Heavy smoker Constitutional: Initial Vital Signs Temperature (C) 36.8 C 01/09/18 06:29 Heart Rate 82 01/09/18 06:29 Respiratory Rate 16 01/09/18 06:29 Blood Pressure 180/121 H 01/09/18 06:29 O2 Sat (%) 91 L 01/09/18 06:29 O2 Delivery Mode Nasal Cannula O2 (L/minute) 2 Allergies/Adverse Reactions: No Known Allergies Allergy (Verified 01/09/18 06:29) Home Medications: Medication Instructions Recorded Methadone HCl [Methadone HCl 10 mg 20 mg PO TID 01/19/17 (*)] oxyCODONE IR [Oxycodone Ir (*)] 5 - 10 mg PO Q4-6PRN PRN 02/28/17 Ondansetron Odt [Zofran Odt 4 mg 4 mg PO Q4 PRN #20 tab 08/28/17 (*)] Medical Decision Making ED Course/Re-evaluation: In the past the symptoms have resolved with IV fluid, IV Zofran, IV ketamine, and IV Ativan. Her feels that she will likely improve with the administration of fluids and Zofran. Re-evaluated at 7 50 a.m.. She is sleeping. She has not had any further vomiting since receiving the Zofran. She has received 1 L IV normal saline. Will let her sleep a bit longer. At 8:05 a.m. She has awakened and resumed retching. A 2nd L of IV normal saline , 2nd dose of 4 mg IV Zofran, and a dose of Ativan 1 mg IV will be administered. Re-evaluated at 9:15 a.m.. She has mild diffuse abdominal pain. She is somewhat somnolent, most likely due to the Ativan that she received. She has not vomited again, however I am not optimistic about her being able to return home this morning. 9:45 a.m.. Bed requested. She continues with nausea. On repeat abdominal exam are abdomen is soft with mild diffuse tenderness, slightly worse in the right lower quadrant. No guarding or rebound. She continues to complain of back pain. She has not been able to take her methadone yet today, I will give her some morphine. I am concerned about opioid withdrawal symptoms. 10:15 a.m.: No change in patient's condition. She is being admitted to the hospitalist service. Differential Diagnosis: Abdominal pain including but not limited to methadone withdrawal, cyclic vomiting, bowel obstruction, pancreatitis, gastritis and urinary tract infection. - Data Points Laboratory Results: Laboratory Results 01/09/18 06:50 01/09/18 06:50 Medications Given: Clonidine (Catapres) 0.1 mg PO Q4 PRN PRN Reason: opioid withdrawal Stop: 07/08/18 17:51 Last Admin: 01/10/18 12:26 Dose: 0.1 mg Enoxaparin Sodium (Lovenox) 40 mg SC DAILY [facility] Stop: 07/09/18 08:59 Last Admin: 01/10/18 09:10 Dose: 40 mg Dextrose/Sodium Chloride (D5w Ns) 1,000 mls @ 100 mls/hr IV CONT BIANCA Stop: 07/08/18 12:14 Last Admin: 01/10/18 09:10 Dose: 1,000 mls Lorazepam (Ativan Injection) 1 mg IVP Q4HRS PRN PRN Reason: Anxiety, Unable to Take PO Stop: 07/08/18 12:00 Last Admin: 01/10/18 06:26 Dose: 1 mg Methadone HCl (Methadone Hcl) 20 mg PO TID [facility] Stop: 01/19/18 21:59 Last Admin: 01/10/18 15:18 Dose: 20 mg Morphine Sulfate (Morphine) 2 mg IVP Q3 PRN PRN Reason: Pain, Severe Unable to Take PO Stop: 01/19/18 13:59 Last Admin: 01/09/18 22:33 Dose: 2 mg Nicotine (Nicoderm Cq) 21 mg TD DAILY [facility] Stop: 07/08/18 13:59 Last Admin: 01/10/18 09:23 Dose: 21 mg Promethazine HCl (Phenergan) 12.5 mg IVP Q6HRS PRN PRN Reason: Nausea/Vomiting, Can't Take PO Stop: 07/08/18 12:00 Last Admin: 01/10/18 09:22 Dose: 12.5 mg Senna/Docusate Sodium (Senokot-S) 1 - 2 tab PO BID BIANCA PRN Reason: Protocol Stop: 07/08/18 20:59 Last Admin: 01/10/18 09:23 Dose: 2 tab Discontinued Medications Sodium Chloride (Ns) 1,000 mls @ 0 mls/hr IV ONCE ONE PRN Reason: Wide Open Stop: 01/09/18 06:57 Last Admin: 01/09/18 06:58 Dose: 1,000 mls Sodium Chloride (Ns) 1,000 mls @ 0 mls/hr IV EDNOW ONE; Wide Open PRN Reason: Protocol Stop: 01/09/18 08:04 Last Admin: 01/09/18 08:08 Dose: 1,000 mls Lorazepam (Ativan Injection) 1 mg IVP EDNOW ONE Stop: 01/09/18 08:05 Last Admin: 01/09/18 08:07 Dose: 1 mg Morphine Sulfate (Morphine) 6 mg IVP EDNOW ONE Stop: 01/09/18 09:43 Last Admin: 01/09/18 10:03 Dose: 6 mg Morphine Sulfate (Morphine) 2 mg IVP Q4HRS PRN PRN Reason: Pain, Severe Unable to Take PO Stop: 01/19/18 12:02 Last Admin: 01/09/18 14:16 Dose: 2 mg Ondansetron HCl (Zofran) 4 mg IVP EDNOW ONE Stop: 01/09/18 06:56 Last Admin: 01/09/18 06:58 Dose: 4 mg Ondansetron HCl (Zofran) 4 mg IVP EDNOW ONE Stop: 01/09/18 08:04 Last Admin: 01/09/18 08:08 Dose: 4 mg Departure - Departure Disposition: [facility] Inpatient Acute Clinical Impression: Intractable cyclical vomiting syndrome, Methadone withdrawal Condition: Fair
[2018-01-09] MEDS ORDERED: ONDANSETRON 4 MG/2 ML VIAL IVP ONE ×2 (06:55→08:03)
[2018-01-09] MEDS ORDERED: NS 1,000 ML IV ONE ×2 (06:56→08:03)
[2018-01-09] MEDS ORDERED: LORazepam 2 MG/ML INJ IVP ONE (08:04)
[2018-01-09 09:20] LABS: PLATELET COUNT 234 10^3/uL (150-400)
[2018-01-09] MEDS ORDERED: ACETAMINOPHEN 325 MG TAB PO PRN (09:54)
[2018-01-09] MEDS ORDERED: ONDANSETRON 4 MG/2 ML VIAL IVP PRN (09:54)
[2018-01-09] MEDS ORDERED: ONDANSETRON DISINTEGRATING 4 MG TAB PO PRN (09:54)
[2018-01-09] MEDS ORDERED: MAGNESIUM HYDROXIDE 30 ML UDCUP PO PRN (12:00)
[2018-01-09] MEDS ORDERED: LACTULOSE 20 GM/30 ML UDCUP PO PRN (12:00)
[2018-01-09] MEDS ORDERED: POLYETHYLENE GLYCOL 3350 17 GM PKT PO PRN (12:00)
[2018-01-09] MEDS ORDERED: BISACODYL 10 MG SUPP PR PRN (12:00)
[2018-01-09] MEDS ORDERED: PROMETHAZINE HCL 25 MG/ML INJ IVP PRN (12:01)
[2018-01-09] MEDS: NICOTINE 21 MG/24 HR PATCH TD SCH (14:15)
--- NOTE | 2018-01-09 14:16 | GHP ---
[f rep st] HISTORY AND PHYSICAL DATE OF ADMISSION: 01/09/2018 CHIEF COMPLAINT: Nausea, vomiting. HISTORY OF PRESENT ILLNESS: A 72-year-old female with history of chronic back pain on methadone who presented with intractable vomiting beginning at 3:30 this morning. Per her , she was in her normal state of health last night and this came on very suddenly. She denies any fevers, chills, or sweats. Last BM was yesterday. Her last dose of methadone was last night. No recent travel or ill contacts. She uses marijuana daily. She was recently diagnosed with cyclic vomiting syndrome and was discharge d in October 2017 with similar symptoms. In the year 2017, she had 7 hospitalizations for similar s ymptoms along with 2 ER visits from which she was discharged from there. REVIEW OF SYSTEMS: I completed a 10-point review of systems, negative except as noted in HPI. PAST MEDICAL HISTORY: 1. Chronic pain. 2. Chronic opioid dependency, on methadone. 3. Cyclic vomiting syndrome. 4. THC dependence. 5. History of large bowel obstruction. 6. Chronic colitis. 7. GERD. 8. GI bleed in 2010. PAST SURGICAL HISTORY: 1. Multiple lumbar surgeries. 2. Right shoulder surgery. 3. Left knee surgery. 4. Appendectomy. 5. Cholecystectomy. 6. Hysterectomy. SOCIAL HISTORY: She lives near [place] with her . Smokes a pack of cigarettes a day. Wendie ly marijuana at least 3 times a day. No alcohol. FAMILY HISTORY: Noncontributory. HOME MEDICATIONS: Methadone 20 mg 3 t.i.d., oxycodone 5-10 mg q.4 hours p.r.n., Zofran as needed. ALLERGIES: No known drug allergies. PHYSICAL EXAM: VITAL SIGNS: Temperature 37.0, blood pressure 139/90, heart rate 86, respirations 14 , 93% on 2 L. GENERAL: She appears very uncomfortable, significant diaphoresis. HEENT: PERRLA. D ry mucous membranes. CV: Regular rate and rhythm. No murmurs, gallops, or rubs. LUNGS: Clear. A BDOMEN: Soft, nontender. Positive bowel sounds. : No Lopez. MUSCULOSKELETAL: 5/5 upper and lo wer extremity strength. No bony tenderness over spine. NEURO: 2 through 12 intact. PSYCH: Somnol ent after pain medications. Will open eyes and answers simple questions. LABS: Urine is pending. Sodium 144, potassium 3.7, chloride 101, carbon dioxide 20, anion gap 18, c reatinine 0.7, glucose 170, calcium 9.3, total bilirubin 0.9, alkaline phosphatase 127, lipase 47. W BC 15, hemoglobin 17, hematocrit 52, platelets 234. IMAGING: Abdominal x-ray personally reviewed by me. No evidence of ileus or obstruction. ASSESSMENT AND PLAN: 1. Recurrent nausea, vomiting: Suspect this is secondary to chronic opioid and marijuana use. X-ra y was negative for obstruction or ileus. She had a bowel movement last night. Will treat supportive ly with IV fluids and antiemetics. I counseled her and her on decreasing marijuana use. [place] el regimen written for. Urinalysis is pending. 2. Chronic back pain with opioid dependence. She is on daily methadone and has not been tolerating this. We will provide IV opioids to avoid withdrawal symptoms. 3. Leukocytosis: Secondary to stress reaction with dehydration and nausea, vomiting. She denies an y infectious symptoms. She is afebrile. A urinalysis is pending. 4. Diet. Advance as tolerated. 5. Deep venous thrombosis prophylaxis with Lovenox. 6. Nicotine dependence. Nicotine patch. DISPOSITION: Patient warrants observation admission given inability to tolerate p.o. warranting IV a ntibiotics and fluids. /[id number]/MODL
[2018-01-09] MEDS: D5W NS 1,000 ML IV SCH ×2 (14:20→22:36)
[2018-01-09] MEDS ORDERED: IBUPROFEN 200 MG TAB PO PRN (17:41)
[2018-01-09] MEDS ORDERED: hydrALAZINE 20 MG/ML VIAL IVP PRN (17:57)
[2018-01-09] MEDS: LORazepam 2 MG/ML INJ IVP PRN ×2 (18:15→22:33)
[2018-01-09] MEDS: METHADONE HCL 10 MG TAB PO SCH (22:35)
[2018-01-09] MEDS: SENNOSIDES/DOCUSATE SODIUM TAB PO SCH (22:35)
[2018-01-10] MEDS: LORazepam 2 MG/ML INJ IVP PRN (06:26)
[2018-01-10] MEDS: ENOXAPARIN 40 MG/0.4 ML SYR SC SCH (09:10)
[2018-01-10] MEDS: D5W NS 1,000 ML IV SCH ×2 (09:10→20:51)
[2018-01-10] MEDS: METHADONE HCL 10 MG TAB PO SCH ×3 (09:22→21:36)
[2018-01-10] MEDS: SENNOSIDES/DOCUSATE SODIUM TAB PO SCH ×2 (09:23→21:37)
[2018-01-10] MEDS: NICOTINE 21 MG/24 HR PATCH TD SCH (09:23)
--- NOTE | 2018-01-10 11:24 | ASMTCASEMG ---
Living Arrangements What is your living Answers: With Spouse arrangement? Who do you live with? Type Of Residence What kind of residence do Answers: House you live in? Discharge Plan Comments Coordination Status Comments Notes: Pt is a 72 y/o female admitted for nausea and vomiting. Pts symptoms may be secondary to marijuana and chronic opioid use. Pt will most likely d/c independent when medically stable. OT has been ordered and awaiting recommendations. CM available for d/c needs. Plan: Independent Date Signed: 01/10/2018 11:24 AM Electronically Signed By:SHELIA Acuña
--- NOTE | 2018-01-10 14:38 | HOSPPROG ---
Hospitalist Progress Note Assessment/Plan: #Acute abdominal pain/N/V: due to cyclic vomiting with chronic methadone and THC use. AXR normal, having BMs. Negative UA. Check lactate -tolerating pills, water this morning. -cont supportive care with IVFs, anti-emetics #Chronic pain with opioid dependency: tolerating home methadone #Opioid withdrawal: improved now that she is taking methadone. PRN Ativan, Advil , Clonidine #Leukocytosis: mild improvement. UA normal #Diet: clears #DVt ppx: Lovenox #Disp: cont inpatient admission with inability to tolerate PO, cont IV hydration Subjective: kept liquids and pills down this am. Had BM this morning Objective: Vital Signs Temp Pulse Resp BP Pulse Ox 36.4 C 86 16 144/85 H 91 L 01/10/18 11:47 01/10/18 13:46 01/10/18 13:46 01/10/18 13:46 01/10/18 13:46 Microbiology 01/09/18 18:30 Respiratory Panel (PCR) - Final Nasal, Sinus - Swab No Organism Detected Laboratory Results 01/10/18 04:20 01/09/18 01/10/18 01/11/18 05:59 05:59 05:59 Output Total 150 Balance -150 - Physical Exam Constitutional: other (not diaphoretic today) Eyes: PERRL Ears, Nose, Mouth, Throat: hearing normal, dry mucous membranes Respiratory: no respiratory distress, no rales or rhonchi Gastrointestinal: normoactive bowel sounds, tenderness (diffuse, no rebound), No guarding, No rebound, No distension Skin: warm Musculoskeletal: full muscle strength Neurologic: AAOx3, CN II-XII Intact ICD10 Worksheet Patient Problems: Problems Problem Status Onset opiod Active Abdominal pain Acute Abdominal pain Acute Acute abdominal pain Acute Acute encephalopathy Acute Bowel obstruction Acute Cyclic vomiting syndrome Acute Cyclical vomiting syndrome Acute Intractable cyclical vomiting syndrome Acute Intractable vomiting Acute Leukocytosis Acute Methadone withdrawal Acute Nausea Acute Nausea & vomiting Acute Opiate dependence, continuous Acute Vomiting Acute
--- NOTE | 2018-01-10 16:06 | PDMN ---
Medical Necessity Medical necessity: Change to IP, as of 01/10/18, per MD; los >2 mn for ongoing management of opioid withdrawal, acute abdominal pain, nausea & cyclic vomiting ; admit for further monitoring, supportive care, med management, IVFs & IV antiemetics; hx chronic pain; per progress note & order 01/10/18
[2018-01-11] MEDS: D5W NS 1,000 ML IV SCH (06:20)
[2018-01-11] MEDS: METHADONE HCL 10 MG TAB PO SCH ×2 (06:20→14:38)
[2018-01-11] MEDS: ENOXAPARIN 40 MG/0.4 ML SYR SC SCH (10:05)
[2018-01-11] MEDS: NICOTINE 21 MG/24 HR PATCH TD SCH (10:06)
[2018-01-11] MEDS: SENNOSIDES/DOCUSATE SODIUM TAB PO SCH (10:06)
[2018-01-11 11:43] VITALS: BP 122/80
--- NOTE | 2018-01-11 14:03 | GDS ---
[f rep st] DISCHARGE SUMMARY DISCHARGE DIAGNOSIS: 1. Intractable nausea and vomiting. 2. Abdominal pain. 3. Chronic opioid dependency on methadone. 4. Tetrahydrocannabinol dependence. 5. History of large bowel obstruction. 6. Chronic colitis. 7. Gastroesophageal reflux disease. 8. Gastrointestinal bleed in 2010. HISTORY OF PRESENT ILLNESS: This is a 72-year-old female with history of chronic back pain on methadone and daily marijuana who presented with intractable vomiting beginning at 3:30 a.m. the day of admission. Per her , she was in her normal state of health last night. This all came on very suddenly. She denies any new fevers, chills, or sweats. Last BM was day of admission. She did take methadone the night before arrival. No recent travel or ill contacts. Using marijuana daily, was recently diagnosed with cyclic vomiting syndrome. She was discharged here from [facility] in 10/2017 with similar symptoms. In 2017, she had 7 hospitalizations for similar symptoms. HOSPITAL COURSE: 1. Recurrent nausea and vomiting secondary to chronic opioid and marijuana use. The x-ray was negative for obstruction. Lactate was normal. She is having bowel movements now. She is tolerating p.o. without issue. She was treated with IV fluids and antiemetics. 2. Chronic back pain with opioid dependence. She is on daily methadone. I recommend that she try to reduce this dose as well as marijuana as this is contributing to these episodes. 3. Leukocytosis, secondary to stress reaction with dehydration, nausea, and vomiting. Afebrile. UA was negative. 4. Opioid withdrawal. She was very diaphoretic with abdominal pain, cramping. She may have thrown up some of her methadone. This was treated with clonidine, Ativan with resolution. DISPOSITION: Patient is stable for discharge home with her . She is tolerating p.o. and having bowel movements. MEDICATIONS: No new medications. She was advised to decrease marijuana use and methadone if possible. PHYSICAL EXAMINATION: VITAL SIGNS: Today's temperature 36.7, blood pressure 120 /80, heart rate 88, respirations 18, 95% on room air. GENERAL: She is sitting up in bed, smiling, has pete cheeks. HEENT: PERRLA. EOMI. Oropharynx clear. CV: Regular rate and rhythm. No murmurs, gallops, or rubs. LUNGS: Clear. ABDOMEN: Soft, nontender, nondistended. Positive bowel sounds. GENITOURINARY: No Lopez. MUSCULOSKELETAL: Moving all 4 extremities. NEUROLOGIC: 2 through 12 intact. PSYCHIATRIC: Alert and orient x3. Time spent coordinating DC >30 min reviewing clinical data, counseling patient on opioids, THC /[id number]/MODL MTDD
[2018-01-11] MEDS ORDERED: PNEUMOC 13-VAL CONJ-DIP CRM/PF 0.5 ML SYR IM ONE (14:24)
== END 2018-01-11 15:16 | disposition home or self-care (01) | DRG 103 ==
LOC: OBSVTOIN 09:55 → F1N 11:04
PROVIDERS: ADMIT Internal Medicine; ATTEND Internal Medicine
DX: G43.A1 Cyclical vomiting, in migraine, intractable (principal); F11.23 Opioid dependence with withdrawal; G89.29 Other chronic pain; M54.9 Dorsalgia, unspecified; E86.0 Dehydration; F12.20 Cannabis dependence, uncomplicated; K21.9 Gastro-esophageal reflux disease without esophagitis; K52.9 Noninfective gastroenteritis and colitis, unspecified
CPT/HCPCS: 96374; 97166-GO; 97535-GO; G0009; G0378; G8987-GO-CL; G8988-GO-CI; G8989-GO-CI; J1650; J2060; J2270; J2405; J2550

== ENCOUNTER 2018-01-24 19:45 | Emergency (ER) | payer OTHER ==
[2018-01-24] MEDS ORDERED: FAMOTIDINE 20 MG/NACL 50 ML IV ONE (20:00)
[2018-01-24] MEDS ORDERED: NS 1,000 ML IV ONE ×2 (20:00→20:36)
[2018-01-24] MEDS ORDERED: ONDANSETRON 4 MG/2 ML VIAL IVP ONE (20:00)
[2018-01-24] MEDS ORDERED: HALOPERIDOL LACT 5 MG/ML INJ IVP ONE (20:01)
[2018-01-24] MEDS ORDERED: PROMETHAZINE HCL 25 MG/ML INJ IVP ONE (20:05)
--- NOTE | 2018-01-24 20:11 | EDPHY ---
H & P Time Seen by Provider: 01/24/18 19:52 HPI/ROS: HPI Nausea and vomiting. 72-year-old female by private vehicle with her . This patient has a history of cyclic vomiting syndrome and bowel obstructions. She has been seen in this emergency department for this complaint many times in the past. She was most recently admitted for the same presentation on January 09 and discharged on January 11. She has a history of chronic pain and is narcotic pain medication dependent. She reports that she has been vomiting since 1:00 a.m. And has not been able to keep any fluids down since that time. She also describes having a crampy abdominal discomfort that comes on in waves associated with her nausea and vomiting. She states that this is identical to her previous episodes. ROS: Constitutional: No fever, no chills. No weakness. Eyes: No discharge. No changes in vision. ENT: No sore throat. No nasal congestion or rhinorrhea. Respiratory: No cough. No shortness of breath. Cardiac: No chest pain, no palpitations. Gastrointestinal: As above, no diarrhea. Genitourinary: No hematuria. No dysuria or increased frequency with urination. Musculoskeletal: No back pain. No neck pain. No myalgias or arthralgias. Skin: No rashes. Neurological: No headache. No focal weakness or altered sensation. Past medical history: Chronic pain, opioid dependency, on methadone every 6 hr , cyclic vomiting syndrome, THC dependency, history of large bowel obstruction, chronic colitis, GERD, GI bleed in 2010, multiple lumbar surgeries, right shoulder surgery, left knee surgery, appendectomy, cholecystectomy, hysterectomy. Social history: Lives near [place] with her who is present at bedside. Smokes a pack of cigarettes daily. Smokes marijuana 3 times daily. Denies alcohol. Physical Exam: General Appearance: Alert, she appears uncomfortable but not in distress. This patient is responding to questions appropriately and in full sentences. This patient appears well-hydrated and well-nourished. Eyes: Pupils equal and round no pallor or injection. No lid edema, erythema or injection. Respiratory: There are no retractions, lungs are clear to auscultation with good air movement bilaterally. Cardiovascular: Regular rate and rhythm. No murmur. Gastrointestinal: Abdomen is soft with mild and vague tenderness on palpation throughout her abdomen, no masses, bowel sounds normal. No focal tenderness at McBurney's point. No Dietrich sign. Neurological: Motor sensory function is grossly intact. Cranial nerves are normal. Gait is normal. Skin: Warm and dry, no rashes. Musculoskeletal: Neck is supple and nontender. Extremities are symmetrical. All joints range without pain or impingement. Psychiatric: No agitation. No depression. Database: EKG: Imaging: Upright abdominal x-ray series: No obstructive pattern or free air. Poor quality film. Interpreted by me. Procedures: Emergency department course: IV placed. She was placed on a clinical research monitor. She was started on IV normal saline with 1-2 L to be given over the next 1-2 hours. She will initially be given 4 mg of IV Zofran, 6.25 mg of IV Phenergan, 0.5 mg of IV hydromorphone and 20 mg of IV Pepcid. 8:45 p.m., patient re-evaluated. Resting comfortably at this time. Feeling better. She will be given a 2nd L of IV normal saline. 9:25 p.m., patient re-evaluated. Feeling better. Able to tolerate oral fluids and crackers now. Repeat abdominal exam she is soft, nontender nondistended. She reports that she does feel comfortable going home with her who is at the bedside. Vital signs reviewed and are normal. I will send her home with both Phenergan and Zofran. Follow-up and return to emergency department precautions reviewed. All of her questions were answered. She was discharged in good condition with her . Differential Diagnosis: The differential diagnosis on this patient includes but is not limited to exacerbation of cyclic vomiting syndrome, narcotic pain medication withdrawal, dehydration, cannabis induced hyperemesis syndrome. Bowel obstruction, other acute surgical process unlikely. This represents a partial list of diagnoses considered. These considerations are based on history, physical exam, past history, reassessment and diagnostic testing. Smoking Status: Heavy smoker Constitutional: Initial Vital Signs Temperature (C) 37.7 C 01/24/18 19:47 Heart Rate 111 H 18 19:47 Respiratory Rate 20 01/24/18 19:47 Blood Pressure 177/113 H 01/24/18 19:47 O2 Sat (%) 94 01/24/18 19:47 O2 Delivery Mode Room Air Allergies/Adverse Reactions: No Known Allergies Allergy (Verified 01/24/18 19:49) Home Medications: Medication Instructions Recorded Methadone HCl [Methadone HCl 10 mg 20 mg PO TID 01/19/17 (*)] oxyCODONE IR [Oxycodone Ir (*)] 5 - 10 mg PO Q4-6PRN PRN 02/28/17 Ondansetron Odt [Zofran Odt 4 mg 4 mg PO Q4 PRN #20 tab 08/28/17 (*)] Ondansetron Odt [Zofran Odt 4 mg 4 mg PO Q4PRN PRN #10 tab 01/24/18 (*)] Promethazine HCl [Phenergan 25mg 25 mg PO Q4-6PRN PRN #12 tab 01/24/18 (*)] Medical Decision Making - Diagnostics Imaging Results: Imaging Impressions Abdomen X-Ray 01/24/18 20:01 Impression: 1. Inadequate evaluation of the pelvis. 2. Mild constipation, with no bowel obstruction or free air observed. - Data Points Laboratory Results: Laboratory Results 01/24/18 20:12 01/24/18 20:12 01/24/18 01/24/18 20:12 20:12 WBC 13.64 10^3/uL H 10^3/uL (3.80-9.50) RBC 5.77 10^6/uL H 10^6/uL (4.18-5.33) Hgb 18.4 g/dL H g/dL (12.6-16.3) Hct 53.5 % H % (38.0-47.0) MCV 92.7 fL fL (81.5-99.8) MCH 31.9 pg pg (27.9-34.1) MCHC 34.4 g/dL g/dL (32.4-36.7) RDW 13.8 % % (11.5-15.2) Plt Count 293 10^3/uL 10^3/uL (150-400) MPV 9.3 fL fL (8.7-11.7) Neut % (Auto) 84.5 % H % (39.3-74.2) Lymph % (Auto) 10.9 % L % (15.0-45.0) [place] % (Auto) 3.6 % L % (4.5-13.0) Eos % (Auto) 0.0 % L % (0.6-7.6) Baso % (Auto) 0.6 % % (0.3-1.7) Nucleat RBC Rel Count 0.0 % % (0.0-0.2) Absolute Neuts (auto) 11.54 10^3/uL H 10^3/uL (1.70-6.50) Absolute Lymphs (auto) 1.48 10^3/uL 10^3/uL (1.00-3.00) Absolute Monos (auto) 0.49 10^3/uL 10^3/uL (0.30-0.80) Absolute Eos (auto) 0.00 10^3/uL L 10^3/uL (0.03-0.40) Absolute Basos (auto) 0.08 10^3/uL 10^3/uL (0.02-0.10) Absolute Nucleated RBC 0.00 10^3/uL 10^3/uL (0-0.01) Immature Gran % 0.4 % % (0.0-1.1) Immature Gran # 0.05 10^3/uL 10^3/uL (0.00-0.10) Sodium 144 mEq/L mEq/L (135-145) Potassium 5.2 mEq/L H mEq/L (3.3-5.0) Chloride 105 mEq/L mEq/L (97-110) Carbon Dioxide 25 mEq/l mEq/l (22-31) Anion Gap 14 mEq/L mEq/L (8-16) BUN 9 mg/dL mg/dL (7-23) Creatinine 0.6 mg/dL mg/dL (0.6-1.0) Estimated GFR > 60 Glucose 141 mg/dL H mg/dL (70-100) Calcium 9.4 mg/dL mg/dL (8.5-10.4) Total Bilirubin 1.3 mg/dL mg/dL (0.1-1.4) Conjugated Bilirubin 0.8 mg/dL H mg/dL (0.0-0.5) Unconjugated Bilirubin 0.5 mg/dL mg/dL (0.0-1.1) AST 40 IU/L IU/L (14-46) ALT 9 IU/L IU/L (9-52) Alkaline Phosphatase 112 IU/L IU/L (38-126) Total Protein 7.9 g/dL g/dL (6.3-8.2) Albumin 4.8 g/dL g/dL (3.5-5.0) Lipase 30 IU/L IU/L (23-300) Specimen Hemolysis 228 Medications Given: Discontinued Medications Haloperidol Lactate (Haldol Injection) 2.5 mg IVP EDNOW ONE Stop: 01/24/18 20:02 Last Admin: 01/24/18 20:58 Dose: Not Given Hydromorphone HCl (Dilaudid) 0.5 mg IVP EDNOW ONE Stop: 01/24/18 20:35 Last Admin: 01/24/18 20:57 Dose: 0.5 mg Sodium Chloride (Ns) 1,000 mls @ 0 mls/hr IV EDNOW ONE; Wide Open PRN Reason: Protocol Stop: 01/24/18 20:01 Last Admin: 01/24/18 20:24 Dose: 1,000 mls Famotidine/Sodium Chloride (Pepcid 20 Mg (Premix)) 50 mls @ 200 mls/hr IV EDNOW ONE Stop: 01/24/18 20:14 Last Admin: 01/24/18 20:24 Dose: 50 mls Sodium Chloride (Ns) 1,000 mls @ 0 mls/hr IV EDNOW ONE; Wide Open PRN Reason: Protocol Stop: 01/24/18 20:37 Last Admin: 01/24/18 20:57 Dose: 1,000 mls Ondansetron HCl (Zofran) 4 mg IVP EDNOW ONE Stop: 01/24/18 20:01 Last Admin: 01/24/18 20:24 Dose: 4 mg Ondansetron HCl (Zofran Odt 4 Mg Prepack#2) 1 btl TAKEHOME EDNOW ONE Stop: 01/24/18 21:28 Last Admin: 01/24/18 22:10 Dose: 1 btl Promethazine HCl (Phenergan) 6.25 mg IVP EDNOW ONE Stop: 01/24/18 20:06 Last Admin: 01/24/18 20:24 Dose: 6.25 mg Promethazine HCl (Phenergan 25 Mg Prepack #4) 1 btl TAKEHOME EDNOW ONE Stop: 01/24/18 21:28 Last Admin: 01/24/18 22:10 Dose: 1 btl Departure - Departure Disposition: Home, Routine, Self-Care Clinical Impression: Vomiting, Cyclical vomiting syndrome Condition: Good Instructions: Ondansetron (By mouth), Promethazine (By injection), Cyclic Vomiting Syndrome (ED) Additional Instructions: Read and follow provided instructions. Follow-up with your primary care physician in 1-2 days for re-evaluation. Take medication as prescribed. Return to the emergency department for worsening abdominal pain, vomiting and inability to keep fluids down despite medications or other serious concerns. Referrals: NONE *PRIMARY CARE P,. [Primary Care Provider] - As per Instructions Prescriptions: Ondansetron Odt [Zofran Odt 4 mg (*)] 4 mg PO Q4PRN PRN #10 tab PRN Reason: For Nausea & Vomiting Promethazine HCl [Phenergan 25mg (*)] 25 mg PO Q4-6PRN PRN #12 tab PRN Reason: For Nausea & Vomiting
[2018-01-24 20:31] LABS: PLATELET COUNT 293 10^3/uL (150-400)
[2018-01-24] MEDS ORDERED: HYDROmorphONE/DILAUDID 2 MG/ML INJ IVP ONE (20:34)
[2018-01-24] MEDS ORDERED: ONDANSETRON 4MG PREPACK#2 BTL TAKEHOME ONE (21:27)
[2018-01-24] MEDS ORDERED: PROMETHAZINE 25 MG PREPACK #4 BTL TAKEHOME ONE (21:27)
[2018-01-24 22:20] VITALS: BP 116/51
== END 2018-01-24 22:18 | disposition home or self-care (01) ==
DX: G43.A0 Cyclical vomiting, in migraine, not intractable (principal); E86.9 Volume depletion, unspecified; F17.210 Nicotine dependence, cigarettes, uncomplicated; Z90.49 Acquired absence of other specified parts of digestive tract; Z90.710 Acquired absence of both cervix and uterus
CPT/HCPCS: 74018; 96361; 96365; 96375; 99284; J1170; J2405; J2550

== ENCOUNTER 2018-03-19 08:01 | Observation (INO) | payer OTHER ==
[2018-03-19] MEDS ORDERED: NS 1,000 ML IV ONE ×2 (08:20→08:45)
[2018-03-19] MEDS ORDERED: ONDANSETRON 4 MG/2 ML VIAL IVP ONE ×3 (08:24→09:39)
[2018-03-19] MEDS ORDERED: HYDROmorphONE/DILAUDID 2 MG/ML INJ IVP ONE (08:45)
--- NOTE | 2018-03-19 08:49 | EDPHY ---
H & P Time Seen by Provider: 03/19/18 08:38 HPI/ROS: CHIEF COMPLAINT: Nausea vomiting HISTORY OF PRESENT ILLNESS: Patient is a 72-year-old female with a history of cyclic vomiting syndrome and multiple visits to the emergency department who presents with"the same thing."Patient was doing well last night. At 6:00 a.m. This morning she developed nausea and vomiting. The is concerned that she may be having opioid withdrawal because she is on methadone. Patient has a history of chronic pain is taking narcotic pain medication. Patient also reports having numerous abdominal surgeries previously with obstruction. No fevers. Patient has been chilled diaphoretic. She denies dysuria or frequency. REVIEW OF SYSTEMS: My complete review of systems is negative except as mentioned in the HPI. Past Medical/Surgical History: Includes chronic pain, opioid dependence, methadone use, cyclic vomiting syndrome, THC dependence, large bowel obstruction, chronic colitis, GERD, GI bleed Past surgical history: Includes multiple lumbar surgeries, shoulder surgery, knee surgery, appendectomy, cholecystectomy, hernia repair, hysterectomy, lysis of adhesions Social history: The patient is . She smokes marijuana daily. She denies alcohol. Smoking Status: Heavy smoker Physical Exam: Vitals noted GENERAL: Mild no acute distress, alert. HEENT: Eyes normal to inspection, normal pharynx, no signs of dehydration. NECK: No thyromegaly, no lymphadenopathy, supple. RESPIRATORY: Clear to auscultation bilaterally, no rales, rhonchi or wheezing. CVS: Regular rate and rhythm, no rubs, murmurs, or gallops. ABDOMEN: Soft, mild diffuse tenderness to palpation with no rebound or guarding nondistended, no organomegaly. BACK: Normal to inspection, no CVA tenderness. SKIN: Normal color, no rash, warm, diaphoretic. No pallor. EXTREMITIES: No pedal edema, no calf tenderness, no Homans sign or cords, no joint swelling. NEURO/PSYCH: Alert and oriented x3, normal mood and affect, normal motor sensory exam. Constitutional: Initial Vital Signs Temperature (C) 36.6 C 03/19/18 08:08 Heart Rate 93 03/19/18 08:08 Respiratory Rate 24 H 03/19/18 08:08 Blood Pressure 188/108 H 03/19/18 08:08 O2 Sat (%) 94 07/09/18 08:08 O2 Delivery Mode Nasal Cannula O2 (L/minute) 2 Allergies/Adverse Reactions: No Known Allergies Allergy (Verified 03/19/18 08:07) Home Medications: Medication Instructions Recorded Methadone HCl [Methadone HCl 10 mg 20 mg PO TID 01/19/17 (*)] oxyCODONE IR [Oxycodone Ir (*)] 5 - 10 mg PO Q4-6PRN PRN 02/28/17 Ondansetron Odt [Zofran Odt 4 mg 4 mg PO Q4 PRN #20 tab 08/28/17 (*)] Ondansetron Odt [Zofran Odt 4 mg 4 mg PO Q4PRN PRN #10 tab 01/24/18 (*)] Promethazine HCl [Phenergan 25mg 25 mg PO Q4-6PRN PRN #12 tab 01/24/18 (*)] Medical Decision Making ED Course/Re-evaluation: In the emergency department I discussed possible etiologies with the patient. I answered all her questions. IV was placed. Patient was given Zofran 4 mg IV on arrival. After my evaluation and discussion with the patient and her , they state that both Zofran and Dilaudid help her symptoms. She was given an additional 4 mg of Zofran and Dilaudid 0.5 mg IV. Laboratory studies were ordered. On recheck the patient still was having nausea. Patient was given Phenergan 12.5 mg IV. On recheck the patient stated she still had nausea. She is given Zofran 4 mg IV. Due the patient's ongoing symptoms she will be admitted for further observation. I discussed this with the hospitalist service. Dr. Samantha Yo will admit. Differential Diagnosis: My differential includes but is not limited to cyclic vomiting syndrome, small- bowel obstruction, perforation, intussusception, volvulus, dehydration - Data Points Laboratory Results: Laboratory Results 03/19/18 08:23 03/19/18 08:23 03/19/18 03/19/18 08:23 08:23 WBC 13.75 10^3/uL H 10^3/uL (3.80-9.50) RBC 5.58 10^6/uL H 10^6/uL (4.18-5.33) Hgb 17.7 g/dL H g/dL (12.6-16.3) Hct 51.5 % H % (38.0-47.0) MCV 92.3 fL fL (81.5-99.8) MCH 31.7 pg pg (27.9-34.1) MCHC 34.4 g/dL g/dL (32.4-36.7) RDW 13.9 % % (11.5-15.2) Plt Count 249 10^3/uL 10^3/uL (150-400) MPV 9.5 fL fL (8.7-11.7) Neut % (Auto) 78.6 % H % (39.3-74.2) Lymph % (Auto) 13.1 % L % (15.0-45.0) [place] % (Auto) 6.5 % % (4.5-13.0) Eos % (Auto) 0.7 % % (0.6-7.6) Baso % (Auto) 0.8 % % (0.3-1.7) Nucleat RBC Rel Count 0.0 % % (0.0-0.2) Absolute Neuts (auto) 10.81 10^3/uL H 10^3/uL (1.70-6.50) Absolute Lymphs (auto) 1.80 10^3/uL 10^3/uL (1.00-3.00) Absolute Monos (auto) 0.89 10^3/uL H 10^3/uL (0.30-0.80) Absolute Eos (auto) 0.10 10^3/uL 10^3/uL (0.03-0.40) Absolute Basos (auto) 0.11 10^3/uL H 10^3/uL (0.02-0.10) Absolute Nucleated RBC 0.00 10^3/uL 10^3/uL (0-0.01) Immature Gran % 0.3 % % (0.0-1.1) Immature Gran # 0.04 10^3/uL 10^3/uL (0.00-0.10) Sodium 141 mEq/L mEq/L (135-145) Potassium 4.2 mEq/L mEq/L (3.3-5.0) Chloride 106 mEq/L mEq/L (97-110) Carbon Dioxide 23 mEq/l mEq/l (22-31) Anion Gap 12 mEq/L mEq/L (8-16) BUN 11 mg/dL mg/dL (7-23) Creatinine 0.7 mg/dL mg/dL (0.6-1.0) Estimated GFR > 60 Glucose 149 mg/dL H mg/dL (70-100) Calcium 9.6 mg/dL mg/dL (8.5-10.4) Total Bilirubin 1.0 mg/dL mg/dL (0.1-1.4) Conjugated Bilirubin 0.5 mg/dL mg/dL (0.0-0.5) Unconjugated Bilirubin 0.5 mg/dL mg/dL (0.0-1.1) AST 29 IU/L IU/L (14-46) ALT 26 IU/L IU/L (9-52) Alkaline Phosphatase 123 IU/L IU/L (38-126) Total Protein 7.4 g/dL g/dL (6.3-8.2) Albumin 4.6 g/dL g/dL (3.5-5.0) Lipase 44 IU/L IU/L (23-300) Medications Given: Discontinued Medications Hydromorphone HCl (Dilaudid) 0.5 mg IVP EDNOW ONE Stop: 03/19/18 08:46 Last Admin: 03/19/18 08:51 Dose: 0.5 mg Sodium Chloride (Ns) 1,000 mls @ 0 mls/hr IV ONCE ONE PRN Reason: Wide Open Stop: 03/19/18 08:21 Last Admin: 03/19/18 08:22 Dose: 1,000 mls Sodium Chloride (Ns) 1,000 mls @ 0 mls/hr IV EDNOW ONE; Wide Open PRN Reason: Protocol Stop: 03/19/18 08:46 Last Admin: 03/19/18 09:00 Dose: 1,000 mls Ondansetron HCl (Zofran) 4 mg IVP EDNOW ONE Stop: 03/19/18 08:25 Last Admin: 03/19/18 08:28 Dose: 4 mg Ondansetron HCl (Zofran) 4 mg IVP EDNOW ONE Stop: 03/19/18 08:46 Last Admin: 03/19/18 08:51 Dose: 4 mg Ondansetron HCl (Zofran) 4 mg IVP EDNOW ONE Stop: 03/19/18 09:40 Last Admin: 03/19/18 09:50 Dose: 4 mg Promethazine HCl (Phenergan) 12.5 mg IVP ONCE ONE Stop: 03/19/18 09:15 Last Admin: 03/19/18 09:19 Dose: 12.5 mg Departure - Departure Disposition: [facility] Inpatient Acute Clinical Impression: Abdominal pain, Acute abdominal pain Nausea & vomiting Qualifiers: Vomiting type: unspecified Vomiting Intractability: non-intractable Qualified Code(s): R11.2 - Nausea with vomiting, unspecified Condition: Good Instructions: Acute Nausea and Vomiting (ED), Acute Abdominal Pain (ED) Referrals: DARNELL FAY [Primary Care Provider] - 2-3 days, if not improved
[2018-03-19] MEDS ORDERED: PROMETHAZINE HCL 25 MG/ML INJ IVP ONE (09:14)
[2018-03-19 09:23] LABS: PLATELET COUNT 249 10^3/uL (150-400)
[2018-03-19] MEDS ORDERED: HYDROmorphONE/DILAUDID 1 MG/ML INJ IVP ONE (11:57)
[2018-03-19] MEDS ORDERED: HYDROmorphONE/DILAUDID 1 MG/ML INJ ONE (11:59)
[2018-03-19] MEDS ORDERED: METOCLOPRAMIDE 10 MG/2 ML VIAL IVP PRN (12:59)
[2018-03-19] MEDS ORDERED: ACETAMINOPHEN 325 MG TAB PO PRN (12:59)
[2018-03-19] MEDS ORDERED: ONDANSETRON DISINTEGRATING 4 MG TAB PO PRN (12:59)
[2018-03-19] MEDS ORDERED: PROMETHAZINE HCL 25 MG/ML INJ IVP PRN (12:59)
[2018-03-19] MEDS ORDERED: NS 1,000 ML IV SCH (13:00)
--- NOTE | 2018-03-19 13:24 | GHP ---
[f rep st] HISTORY AND PHYSICAL DATE OF ADMISSION: 03/19/2018 CHIEF COMPLAINT: Nausea, vomiting. HISTORY OF PRESENT ILLNESS: The patient is a 72-year-old woman with a history of cyclic vomiting syn drome. She has had 3 admissions this year and 7 admissions last year to the hospital with similar sy mptoms. She also has a history of chronic back pain with chronic narcotic dependence with methadone. The patient said she was in her usual state of health last night. This morning at 5 o'clock, she w abhijit up with nausea, vomiting. She has some abdominal cramping. She has chills and diaphoresis, but no fevers. No headache, vision, hearing, speech changes. No chest pain, shortness of breath, or cou gh. No diarrhea or urinary symptoms. Her last BM was this morning. No other joint issues or lower extremity edema. REVIEW OF SYSTEMS: 10-point review of systems was done, and is negative except as stated in HPI. PAST MEDICAL HISTORY: 1. Cyclic vomiting syndrome with ongoing THC dependence. 2. Chronic back pain with chronic opioid dependency on methadone. 3. History of large bowel obstruction. 4. Chronic colitis. 5. GE reflux disease. 6. History of GI bleed. PAST SURGICAL HISTORY: Includes multiple lumbar surgeries, right shoulder surgery, left knee surgery , appendectomy, cholecystectomy, and hysterectomy. SOCIAL HISTORY: She lives at [facility] with her . She smokes a pack of cigarettes a day, da norma marijuana at least 3 times a day. No alcohol. FAMILY HISTORY: Noncontributory. HOME MEDICATIONS: Please see med reconciliation form. These include methadone 20 mg 3 tablets t.i.d . and oxycodone as needed. ALLERGIES: No known drug allergies. PHYSICAL EXAMINATION: VITAL SIGNS: She is afebrile. Heart rate 83, blood pressure 154/84, respirat ions 16-28. She is 83% on room air. GENERAL: She is a 72-year-old in moderate distress. She is al ert. HEENT: Pupils are small. Extraocular movements intact. She is constantly retching while I am in the room with her. NECK: Supple. HEART: Regular. LUNGS: Clear to auscultation. ABDOMEN: S oft. No guarding. Positive tenderness diffusely. EXTREMITIES: No clubbing, cyanosis, or edema. M USCULOSKELETAL: No joint deformities or effusions. NEUROLOGIC: Her speech is fluent. She is movin g all 4 extremities. PSYCH: She is appropriate, but has a lot of retching and poor eye contact. LABORATORY DATA: CBC shows a white count of 13.7, hemoglobin 17.7 with a platelet count of 249. ASSESSMENT AND PLAN: 1. 72-year-old with chronic narcotic dependency and ongoing THC use, presents with recurrent cyclic vomiting syndrome. Symptoms came on abruptly and are persistent. At this time, will go ahead and co ntinue supportive care. She did have a bowel movement this morning, so a bowel obstruction seems les s likely, but will monitor her symptoms. 2. Chronic low back pain with narcotic dependency on methadone. Will resume her home medications wh en reconciled and give p.r.n. intravenous medications while she is retching in case she cannot swallo w her pills. 3. Tobacco dependence. Nicotine patch needed. 4. Marijuana use. She has had multiple counseling about giving up the marijuana. 5. Hyperglycemia. This is likely secondary to stress. She did have a hemoglobin A1c a couple years ago that was normal. Will monitor while she is here and check hemoglobin A1c. 6. Acute hypoxic respiratory failure. I suspect this is likely from her acute illness and ongoing t obacco use. Will add DuoNeb and check a chest x-ray when she is feeling better. Her lungs are clear . 7. Gastroesophageal reflux disease. Will add proton pump inhibitor while she is here given her ongo ing nausea and vomiting. 8. Deep vein thrombosis prophylaxis. Patient is low risk and she is under observation. If she has an extended hospital stay, will start prophylaxis. /[id number]/MODL
[2018-03-19] MEDS: LORazepam 2 MG/ML INJ IVP PRN ×2 (13:37→21:37)
[2018-03-19] MEDS: NICOTINE 21 MG/24 HR PATCH TD SCH (13:37)
[2018-03-19] MEDS: IPRATROPIUM/ALBUTEROL 3 ML DEYVIAL IH SCH ×2 (16:01→21:09)
[2018-03-19] MEDS: HYDROmorphONE/DILAUDID 1 MG/ML INJ IVP PRN ×2 (17:30→21:37)
[2018-03-19] MEDS: ONDANSETRON 4 MG/2 ML VIAL IVP PRN (19:52)
[2018-03-20 04:39] LABS: PLATELET COUNT 217 10^3/uL (150-400)
[2018-03-20] MEDS: IPRATROPIUM/ALBUTEROL 3 ML DEYVIAL IH SCH ×2 (05:19→09:38)
[2018-03-20] MEDS: HYDROmorphONE/DILAUDID 1 MG/ML INJ IVP PRN ×2 (05:38→10:14)
[2018-03-20] MEDS: ONDANSETRON 4 MG/2 ML VIAL IVP PRN (05:39)
[2018-03-20] MEDS ORDERED: oxyCODONE IR 5 MG TAB PO PRN (07:49)
[2018-03-20] MEDS ORDERED: METHADONE HCL 10 MG TAB PO PRN (07:49)
[2018-03-20] MEDS ORDERED: ONDANSETRON DISINTEGRATING 4 MG TAB PO PRN (07:49)
[2018-03-20] MEDS: NICOTINE 21 MG/24 HR PATCH TD SCH (10:19)
--- NOTE | 2018-03-20 12:10 | GDS ---
[f rep st] DISCHARGE SUMMARY DIAGNOSES: 1. Cyclic vomiting syndrome with intractable nausea, vomiting. 2. Chronic back pain with chronic narcotic dependence. 3. History of bowel obstruction. 4. Chronic colitis. 5. Gastroesophageal reflux disease. HOSPITAL COURSE: Ms. Jackman is a 72-year-old with multiple admissions for cyclic vomiting syndrom e and intractable nausea, vomiting. She comes in with similar complaints. She was treated symptomat ically overnight and her symptoms have completely resolved this morning. She is eating regular food and is ready to go home. Likely she has cyclic vomiting syndrome from ongoing marijuana use. She is declining diminishing her dose because she says it helps her significantly with her back pain. She has degeneration of her scoliosis which is causing her chronic pain. At this time, I recommend she f luis enriquelow up with her primary care provider. Unfortunately, I do not see a good solution to prevent furt her hospitalizations. Luckily she does resolve her symptoms quite quickly here in the hospital. DISCHARGE MEDICATIONS: She will resume her home medications. Please see discharge medication form. FOLLOWUP: Followup will be with her primary care provider in 1-2 weeks. /[id number]/MODL
[2018-03-20 14:59] VITALS: BP 101/65
[2018-03-21] MEDS ORDERED: ESTRADIOL 0.025 MG PATCH TD SCH (09:00)
== END 2018-03-20 15:44 | disposition home or self-care (01) ==
LOC: F1N 12:17
PROVIDERS: ADMIT Internal Medicine; ATTEND Internal Medicine
DX: G43.A1 Cyclical vomiting, in migraine, intractable (principal); M54.9 Dorsalgia, unspecified; K52.9 Noninfective gastroenteritis and colitis, unspecified; K21.9 Gastro-esophageal reflux disease without esophagitis; F12.20 Cannabis dependence, uncomplicated; F17.200 Nicotine dependence, unspecified, uncomplicated
CPT/HCPCS: 71045; 96361; 96374; 96375; 96376; 97116; 97161; 97165; 97535; 99285; G0378; G8978; G8979; G8987; G8988; J1170; J2060; J2405; J2550

== ENCOUNTER 2018-06-25 06:29 | Observation (INO) | payer OTHER ==
--- NOTE | 2018-06-25 06:55 | EDPHY ---
H & P Stated Complaint: vomiting and abd pain Time Seen by Provider: 06/25/18 06:55 - Personal History Current Tetanus/Diphtheria Vaccine: Yes Current Tetanus Diphtheria and Acellular Pertussis (TDAP): Yes Tetanus Vaccine Date: LESS THAN 10 YEARS - Medical/Surgical History Hx Asthma: No Hx Chronic Respiratory Disease: No Hx Diabetes: No Hx Cardiac Disease: No Hx Renal Disease: No Hx Cirrhosis: No Hx Alcoholism: No Hx HIV/AIDS: No Hx Splenectomy or Spleen Trauma: No Other PMH: multiple Bowel obstructions , opiod dependence, chronic low backpain , GERD, cholelithiasis, chronic colitis, abdominal bloating, chronic N/V, cholelithiasis, gi bleed (2010), mutiple back surgeries, scoleosis, deginerative spine diease. psh- appy, nena, hysterectomy, gi surgery, right shoulder surgery, left knee surgery, BACK SURGERY - Social History Smoking Status: Heavy smoker Constitutional: Initial Vital Signs Temperature (C) 36.6 C 06/25/18 06:30 Heart Rate 97 06/25/18 06:30 Respiratory Rate 18 06/25/18 06:30 O2 Sat (%) 92 06/25/18 06:30 O2 Delivery Mode Room Air O2 (L/minute) 2 Allergies/Adverse Reactions: No Known Allergies Allergy (Verified 06/25/18 06:34) Home Medications: Medication Instructions Recorded Methadone HCl [Methadone HCl 10 mg 20 mg PO TID PRN 01/19/17 (*)] oxyCODONE IR [Oxycodone Ir (*)] 5 - 10 mg PO Q4-6PRN PRN 02/28/17 Estradiol [Estradiol Transdermal 0.025 mg TD WE 03/19/18 Patch] Ondansetron Odt [Zofran Odt 4 mg 4 - 8 mg PO Q4H PRN 03/19/18 (*)] Medical Decision Making ED Course/Re-evaluation: CHIEF COMPLAINT: Nausea vomiting abdominal spasms HISTORY OF PRESENT ILLNESS: 72-year-old female who is well known to myself and the emergency department. She has recurrent cyclic vomiting. She has had bowel obstruction in the past. She states she developed symptoms is abruptly at about 3:00 a.m.. It is her usual cyclic vomiting type symptoms. She tried to take some oral Zofran but threw them up. She did not try and take her rectal Phenergan. She is adamant that she is not obstructed. She is adamant that she does not want a CT scan. She denies any fevers or chills. She denies any exposure to any untoward food products. REVIEW OF SYSTEMS: A comprehensive 10 system review of systems is otherwise negative aside from elements mentioned in the history of present illness and medical decision making. PHYSICAL EXAM: HR, BP, O2 Sat, RR. Temp noted General Appearance: Alert, well hydrated, appropriate, and non-toxic appearing. Head: Atraumatic without scalp tenderness or obvious injury Eyes: Pupils equal, round, reactive to light and accommodation, EOMI, no trauma , no injection. Nose: Atraumatic, no rhinorrhea, clear. Throat: There is no erythema or exudates, no lesions, normal tonsils, mucus membranes moist. Neck: Supple, nontender, no lymphadenopathy. Respiratory: No retractions, no distress, no wheezes, and no accessory muscle use. Lungs are clear to auscultation bilaterally. Cardiovascular: Regular rate and rhythm, no murmurs, rubs, or gallops. Good capillary refill all extremities. Gastrointestinal: Abdomen is soft, diffusely tender but soft, non-distended, no masses, no rebound, no guarding, no peritoneal signs. Her exam is not consistent with an obstruction at this time I will continue to reexamine her as I ease her nausea and spasms. Musculoskeletal: Normal active ROM of all extremities, atraumatic. Neurological: Alert, appropriate, and interactive. The patient has normal DTRs and non-focal cranial nerves, motor, sensory, and cerebellar exam. Skin: No rashes, good turgor, no nodules on palpation. Past medical history: Cyclic vomiting and numerous gastrointestinal problems Past surgical history: Small bowel obstruction Family history: Noncontributory Social history: , not employed, here with her , does not abuse tobacco drugs or alcohol DIFFERENTIAL DIAGNOSIS: The differential diagnosis for the patient's abdominal pain included but was not limited to ovarian cyst, pelvic inflammatory disease, ovarian torsion, urinary tract infection, cyclic vomiting, cholecystitis, and appendicitis. The differential diagnosis for the patient's nausea and vomiting included but was not limited to gastroenteritis, gastritis, appendicitis, and medication side effect. MEDICAL DECISION MAKING: This patient has cyclic vomiting syndrome. Her exam is currently not consistent with small-bowel obstruction. I believe it most likely is recurrent and vomiting episode with abdominal spasm. The patient is adamant that that is indeed what she has and not up in obstruction it feels different to her. Also, she is refusing a CT scan regardless. I do not think she needs 1 at this point. Laboratory studies will be run. I will start giving this patient IV Zofran and ketamine. Patient is continuing to vomiting. Additional dose of ketamine ordered. 0844: Reassessed patient. She complains that she is no better and is frequently requesting Dilaudid. I discussed this would not work well as she is on Methadone. Plan for additional ketamine dosing for persistent symptoms. I've offered admission for symptom management, which she has declined. 1007: Patient's symptoms currently controlled after multiple doses of ketamine and now Phenergan. Plan for discharge home with her with standard care and follow up instructions. Patient has been sleeping for the last hour. Upon arrival she states her symptoms are not improved at all and now she would like to be admitted. Spoke with hospitalist service. Dr. Herndon accepts admission. - Data Points Laboratory Results: Laboratory Results 06/25/18 07:09 06/25/18 07:09 06/25/18 06/25/18 06/25/18 07:21 07:09 07:09 WBC 13.47 10^3/uL H 10^3/uL (3.80-9.50) RBC 5.63 10^6/uL H 10^6/uL (4.18-5.33) Hgb 18.1 g/dL H g/dL (12.6-16.3) POC Hgb 20.1 gm/dL H* gm/dL (12.6-16.3) Hct 51.7 % H % (38.0-47.0) POC Hct 59 % H % (38-47) MCV 91.8 fL fL (81.5-99.8) MCH 32.1 pg pg (27.9-34.1) MCHC 35.0 g/dL g/dL (32.4-36.7) RDW 13.8 % % (11.5-15.2) Plt Count 258 10^3/uL 10^3/uL (150-400) MPV 8.9 fL fL (8.7-11.7) Neut % (Auto) 86.0 % H % (39.3-74.2) Lymph % (Auto) 7.3 % L % (15.0-45.0) [place]lin % (Auto) 5.1 % % (4.5-13.0) Eos % (Auto) 0.3 % L % (0.6-7.6) Baso % (Auto) 0.9 % % (0.3-1.7) Nucleat RBC Rel Count 0.0 % % (0.0-0.2) Absolute Neuts (auto) 11.58 10^3/uL H 10^3/uL (1.70-6.50) Absolute Lymphs (auto) 0.99 10^3/uL L 10^3/uL (1.00-3.00) Absolute Monos (auto) 0.69 10^3/uL 10^3/uL (0.30-0.80) Absolute Eos (auto) 0.04 10^3/uL 10^3/uL (0.03-0.40) Absolute Basos (auto) 0.12 10^3/uL H 10^3/uL (0.02-0.10) Absolute Nucleated RBC 0.00 10^3/uL 10^3/uL (0-0.01) Immature Gran % 0.4 % % (0.0-1.1) Immature Gran # 0.05 10^3/uL 10^3/uL (0.00-0.10) POC Sodium 141 mEq/L mEq/L (135-145) Sodium 140 mEq/L mEq/L (135-145) POC Potassium 3.4 mEq/L mEq/L (3.3-5.0) Potassium 4.3 mEq/L mEq/L (3.3-5.0) POC Chloride 101 mEq/L mEq/L (97-110) Chloride 101 mEq/L mEq/L (97-110) Carbon Dioxide 24 mEq/l mEq/l (22-31) Anion Gap 15 mEq/L H mEq/L (6-14) POC BUN 10 mg/dL mg/dL (7-23) BUN 12 mg/dL mg/dL (7-23) Creatinine 0.6 mg/dL mg/dL (0.6-1.0) POC Creatinine 0.6 mg/dL mg/dL (0.6-1.0) Estimated GFR > 60 Glucose 173 mg/dL H mg/dL (70-100) POC Glucose 174 mg/dL H mg/dL (70-100) Calcium 9.5 mg/dL mg/dL (8.5-10.4) Total Bilirubin 1.0 mg/dL mg/dL (0.1-1.4) Conjugated Bilirubin 0.5 mg/dL mg/dL (0.0-0.5) Unconjugated Bilirubin 0.5 mg/dL mg/dL (0.0-1.1) AST 31 IU/L IU/L (14-46) ALT 11 IU/L IU/L (9-52) Alkaline Phosphatase 140 IU/L H IU/L (38-126) Total Protein 7.8 g/dL g/dL (6.3-8.2) Albumin 4.7 g/dL g/dL (3.5-5.0) Lipase 35 IU/L IU/L (23-300) Specimen Hemolysis 124 Medications Given: Discontinued Medications Sodium Chloride (Ns) 1,000 mls @ 0 mls/hr IV EDNOW ONE; Wide Open PRN Reason: Protocol Stop: 06/25/18 07:03 Last Admin: 06/25/18 07:12 Dose: 1,000 mls Ketamine HCl (Ketamine) 10 mg IVP EDNOW ONE Stop: 06/25/18 07:04 Last Admin: 06/25/18 07:15 Dose: 10 mg Ketamine HCl (Ketamine) 10 mg IVP EDNOW ONE Stop: 06/25/18 07:49 Last Admin: 06/25/18 07:54 Dose: 10 mg Ketamine HCl (Ketamine) 10 mg IVP EDNOW ONE Stop: 06/25/18 08:52 Last Admin: 06/25/18 09:01 Dose: Not Given Ketorolac Tromethamine (Toradol) 30 mg IVP EDNOW ONE Stop: 06/25/18 07:03 Last Admin: 06/25/18 07:13 Dose: 30 mg Ondansetron HCl (Zofran) 4 mg IVP EDNOW ONE Stop: 06/25/18 07:03 Last Admin: 06/25/18 07:13 Dose: 4 mg Ondansetron HCl (Zofran) 4 mg IVP EDNOW ONE Stop: 06/25/18 09:01 Last Admin: 06/25/18 09:03 Dose: 4 mg Promethazine HCl (Phenergan) 12.5 mg IVP EDNOW ONE Stop: 06/25/18 09:31 Last Admin: 06/25/18 09:45 Dose: 12.5 mg Point of Care Test Results: Chemistry 06/25/18 07:21 POC Sodium 141 mEq/L mEq/L (135-145) POC Potassium 3.4 mEq/L mEq/L (3.3-5.0) POC Chloride 101 mEq/L mEq/L (97-110) POC BUN 10 mg/dL mg/dL (7-23) POC Creatinine 0.6 mg/dL mg/dL (0.6-1.0) POC Glucose 174 mg/dL H mg/dL (70-100) ISTAT H&H 06/25/18 07:21 POC Hgb 20.1 gm/dL H* gm/dL (12.6-16.3) POC Hct 59 % H % (38-47) Departure - Departure Disposition: [facility] Inpatient Acute Clinical Impression: Cyclical vomiting syndrome Condition: Fair Instructions: Cyclic Vomiting Syndrome (ED) Additional Instructions: Follow up with your primary care provider as needed for continued symptoms. Referrals: [facility],. [Clinic] - As per Instructions Report Scribed for: Wali Baker Report Scribed by: Ree Rodriguez Date of Report: 06/25/18 Time of Report: 11:44
[2018-06-25] MEDS ORDERED: ONDANSETRON 4 MG/2 ML VIAL IVP ONE ×2 (07:02→09:00)
[2018-06-25] MEDS ORDERED: NS 1,000 ML IV ONE (07:02)
[2018-06-25] MEDS ORDERED: KETOROLAC 30 MG/1 ML SDV IVP ONE (07:02)
[2018-06-25] MEDS ORDERED: KETAMINE 200 MG/20 ML VIAL IVP ONE ×2 (07:03→08:51)
[2018-06-25 07:18] LABS: PLATELET COUNT 258 10^3/uL (150-400)
[2018-06-25] MEDS ORDERED: KETAMINE 500 MG/10 ML VIAL IVP ONE (07:48)
[2018-06-25] MEDS ORDERED: PROMETHAZINE HCL 25 MG/ML INJ IVP ONE (09:30)
[2018-06-25] MEDS ORDERED: ONDANSETRON DISINTEGRATING 4 MG TAB PO PRN (14:34)
[2018-06-25] MEDS ORDERED: ACETAMINOPHEN 325 MG TAB PO PRN (14:36)
[2018-06-25] MEDS ORDERED: ONDANSETRON 4 MG/2 ML VIAL IVP PRN (14:36)
--- NOTE | 2018-06-25 15:11 | GHP ---
DATE OF ADMISSION: 06/25/2018 Ms. Jackman is a pleasant 72-year-old female with a history of chronic abdominal pain with chronic opiate narcotic use, who presents with abdominal pain with nausea. When I speak with her, she is jacqueline ewhat reticent to participate in the interview. I admitted her to this hospital in April of 2017, a nd my admission history and physical notes the same unwillingness to participate in the interview. P er her , she was doing fine, and then she woke up and she had some vomiting. There was some q uestion of narcotic withdrawal. She does take methadone 10 three times daily, so the likelihood of w ithdrawal is low from missing a couple of doses, given methadone's long half-life. She does not take multiple hot showers a day. She does use THC daily, but it is not clear that she has cannabis hyper emesis syndrome. She has been eating normally. She has not had fever. When I speak with her, she i s somnolent, but then when she is finally arousable she says she complains of pain, and is asking for pain medicines. REVIEW OF SYSTEMS: Complete 10-point review of systems conducted, negative except as noted in the HP I. Addendum: Last bowel movement was this morning. PAST MEDICAL HISTORY: Cyclic vomiting syndrome with ongoing THC dependence, chronic back pain with c hronic opioid dependence, on methadone and p.r.n. oxycodone. History of large bowel obstruction, chr onic colitis, history of gastroesophageal reflux disease, history of GI bleed. Lumbar surgeries, rig ht shoulder surgery, left knee , appendectomy, cholecystectomy, hysterectomy. SOCIAL HISTORY: She lives in [place] with her . She smokes cigarettes. Does not drink al cohol. FAMILY HISTORY: Reviewed and unremarkable. ALLERGIES: No known drug allergies. MEDICATIONS: Home medications are oxycodone, ondansetron, methadone, estradiol patch. PHYSICAL EXAMINATION: PRESENTING VITALS: Temp 36.6 blood pressure 180/76, pulse 62, breathing 18 ti mes a minute, 93% on room air. GENERAL: No acute distress. Somnolent, but arousable. There is jacqueline e question that this may be volitional somnolence. NECK: Supple. No lymphadenopathy or JVD. LUNGS : Clear to auscultation anterolaterally. HEART: S1 ans S2. Not tachycardic. ABDOMEN: Soft. [place] el sounds are present, but hypoactive. There is no rebound or guarding. Her incisions are well heal ed, and without scarring. EXTREMITIES: Her lower extremities without edema. Calves nontender. SKIN: Without rash. NEUROLOGIC: Notable for a somnolent patient who is arousable. LABORATORY DATA: White count 13.5, which is almost exactly her baseline. Hemoglobin is 18, hematocr it 51. She has been polycythemic at least for a couple of years. The platelet count is 258,000. So dium 140, potassium 4.3, chloride 101, bicarb 24, BUN 12, creatinine 0.6, glucose 173. LFTs are norm al, other than a slightly elevated alkaline phosphatase, which we have seen before. There is no imag ing. I have discussed the case with Dr. Wali Baker. ASSESSMENT/PLAN: A 72-year-old female with chronic abdominal pain, cyclic vomiting, presents with [facility]. 1. Vomiting. I suspect this is an exacerbation of this syndrome. I do not think, based on the avai lable evidence, that she has cannabis hyperemesis syndrome. We will continue p.r.n. Zofran and Phene rgan. I will put her on a regular diet. 2. Abdominal pain. We will continue her home pain medicines. I have instructed the nurse not to gi ve to her if she somnolent. I do not see the need for IV pain medicines at this point in time. 3. Polycythemia. This patient is a smoker and [place]; that is the explanation. 4. Hypoxemia. This likely secondary to the medication she received in the emergency department, as well as some underlying lung disease. She did have a chest x-ray in March of this year, showing no ch ronic obstructive pulmonary disease. 5. Prophylaxis: Low molecular weight heparin indicated. DISPOSITION: Observation. /[id number]/MODL
[2018-06-25] MEDS: PROMETHAZINE HCL 25 MG/ML INJ IV PRN ×2 (16:13→22:40)
[2018-06-25] MEDS: NS 1,000 ML IV SCH (16:13)
[2018-06-25] MEDS: METHADONE HCL 10 MG TAB PO PRN (20:47)
[2018-06-26] MEDS: NS 1,000 ML IV SCH (02:21)
[2018-06-26] MEDS: METHADONE HCL 10 MG TAB PO PRN (05:25)
[2018-06-26 08:05] VITALS: BP 162/90
[2018-06-26] MEDS ORDERED: ENOXAPARIN 40 MG/0.4 ML SYR SC SCH (09:00)
--- NOTE | 2018-06-26 09:04 | HOSPPROG ---
Hospitalist Progress Note Assessment/Plan: 72 yo F w cyclic vomiting admitted w vomiting, pain better po challenge and home if successful Subjective: alert and conversant Objective: Vital Signs Temp Pulse Resp BP Pulse Ox 36.7 C 83 18 162/90 H 90 L 06/26/18 08:02 06/26/18 08:04 06/26/18 08:02 06/26/18 08:02 06/26/18 08:04 Laboratory Results 06/26/18 04:54 06/25/18 06/26/18 06/27/18 05:59 05:59 05:59 Intake Total 2290 Balance 2290 - Physical Exam Constitutional: no apparent distress, appears nourished Eyes: PERRL, anicteric sclera Ears, Nose, Mouth, Throat: moist mucous membranes, hearing normal Cardiovascular: regular rate and rhythym, no murmur, rub, or gallop Respiratory: no respiratory distress, no rales or rhonchi Gastrointestinal: normoactive bowel sounds, soft, non-tender abdomen Genitourinary: no bladder fullness, No [place] in urethra Skin: warm, normal color Musculoskeletal: full muscle strength, no muscle tenderness Neurologic: AAOx3 ICD10 Worksheet Patient Problems: Problems Problem Status Onset Cyclical vomiting syndrome Acute opiod Active Abdominal pain Acute Abdominal pain Acute Acute abdominal pain Acute Acute encephalopathy Acute Bowel obstruction Acute Cyclic vomiting syndrome Acute Intractable cyclical vomiting syndrome Acute Intractable vomiting Acute Leukocytosis Acute Methadone withdrawal Acute Nausea Acute Nausea & vomiting Acute Opiate dependence, continuous Acute Vomiting Acute
--- NOTE | 2018-06-26 09:19 | GDS ---
DISCHARGE DIAGNOSES: 1. Cyclic vomiting. 2. Chronic abdominal pain. 3. Chronic back pain, on continuous opiates. 4. Marijuana abuse, probably not meeting the definition of cannabis hyperemesis syndrome. Please see admission History and physical by Dr. Tommy Herndon. The patient presented with abdomina l pain, nausea, vomiting. She was not obstructed. She was not constipated. She received IV antieme tics. I did not give her IV pain medicines. When I see her this morning, she is alert and conversan t, willing to try breakfast and if she tolerates that, will go home today. /[id number]/MODL
== END 2018-06-26 11:50 | disposition home or self-care (01) ==
LOC: F3E 12:47
PROVIDERS: ADMIT Internal Medicine; ATTEND Internal Medicine
DX: G43.A0 Cyclical vomiting, in migraine, not intractable (principal); R10.9 Unspecified abdominal pain; G89.29 Other chronic pain; F12.10 Cannabis abuse, uncomplicated; E86.9 Volume depletion, unspecified; F17.200 Nicotine dependence, unspecified, uncomplicated; K55.1 Chronic vascular disorders of intestine; K21.9 Gastro-esophageal reflux disease without esophagitis
CPT/HCPCS: 96361; 96372; 96374; 96375; 96376; 99285; G0378; J1650; J1885; J2405; J2550; 82435-PO; 82565-PO; 82947-PO; 84132-PO; 84295-PO; 84520-PO; 85014-PO

== ENCOUNTER 2018-08-14 08:28 | Observation (INO) | payer OTHER ==
--- NOTE | 2018-08-14 08:59 | EDPHY ---
H & P Time Seen by Provider: 08/14/18 08:54 HPI/ROS: Chief complaint. Nausea and vomiting HPI. Patient is 73-year-old female with history of chronic abdominal pain and recurrent nausea vomiting. She was admitted for same in June. Patient tells me that her nausea vomiting started at 2:00 a.m. This morning. She was well yesterday. She has no diarrhea. She has burning type discomfort in the upper abdomen. No fever. No chest discomfort or trouble breathing. Cannot keep fluids down. Patient has a history of chronic opioid dependence and chronic abdominal pain. She also has a history of GERD ROS 10 systems were reviewed and negative with the exception of the elements mentioned in the history of present illness Past Medical/Surgical History: Past medical history is significant for chronic abdominal pain, chronic opiate use, large bowel obstruction, chronic colitis, GERD, GI bleed, back surgery, appendectomy, cholecystectomy, hysterectomy Social History: , daily smoker, no alcohol Smoking Status: Heavy smoker Physical Exam: General Appearance: Alert well-developed female actively retching moderate distress. Vital signs stable Eyes: Pupils equal and round no pallor or injection. ENT, Mouth: Mucous membranes are moist. Respiratory: There are no retractions, lungs are clear to auscultation. Cardiovascular: Regular rate and rhythm. Gastrointestinal: Abdomen is soft with epigastric tenderness. No masses. Normal bowel sounds Neurological: Awake and alert, sensory and motor exams grossly normal. Skin: Warm and dry, no rashes. Musculoskeletal: Neck is supple nontender. Extremities symmetrical, full range of motion. Psychiatric: Patient is oriented X 3, there is no agitation. Constitutional: Initial Vital Signs Temperature (C) 37.1 C 08/14/18 09:13 Heart Rate 71 08/14/18 09:13 Respiratory Rate 18 08/14/18 09:13 Blood Pressure 180/95 H 08/14/18 09:13 O2 Sat (%) 93 08/14/18 09:13 O2 Delivery Mode Room Air O2 (L/minute) 4 Allergies/Adverse Reactions: No Known Allergies Allergy (Verified 08/14/18 08:58) Home Medications: Medication Instructions Recorded Methadone HCl [Methadone HCl 10 mg 20 mg PO TID PRN 01/19/17 (*)] oxyCODONE IR [Oxycodone Ir (*)] 5 - 10 mg PO Q4-6PRN PRN 02/28/17 Estradiol [Estradiol Transdermal 0.025 mg TD WE 03/19/18 Patch] Medical Decision Making Procedures: IV normal saline. Phenergan IV ED Course/Re-evaluation: Re-evaluation 10:00 a.m. Patient is sleeping. No vomiting. Re-evaluation 11:00 a.m. And patient tells me that she has nauseated and needs more medication. She is also requesting pain medication. She and I discussed because of her chronic pain and pain regimen that I would not provide narcotics currently. She will be given IV Toradol. We will use Haldol and Benadryl for nausea vomiting She will be given another L of saline Patient continues to complain of nausea and that she is not any better. I consulted discussed case with hospitalist who agrees to the admission Differential Diagnosis: Patient has regular vomiting and diarrhea episodes. I considered electrolyte abnormalities, dehydration - Data Points Laboratory Results: Laboratory Results 08/14/18 09:25 08/14/18 09:25 08/14/18 08/14/18 09:25 09:25 WBC 16.97 10^3/uL H 10^3/uL (3.80-9.50) RBC 5.75 10^6/uL H 10^6/uL (4.18-5.33) Hgb 18.3 g/dL H g/dL (12.6-16.3) Hct 52.8 % H % (38.0-47.0) MCV 91.8 fL fL (81.5-99.8) MCH 31.8 pg pg (27.9-34.1) MCHC 34.7 g/dL g/dL (32.4-36.7) RDW 14.2 % % (11.5-15.2) Plt Count 238 10^3/uL 10^3/uL (150-400) MPV 9.1 fL fL (8.7-11.7) Neut % (Auto) 86.9 % H % (39.3-74.2) Lymph % (Auto) 6.0 % L % (15.0-45.0) [place] % (Auto) 5.8 % % (4.5-13.0) Eos % (Auto) 0.1 % L % (0.6-7.6) Baso % (Auto) 0.7 % % (0.3-1.7) Nucleat RBC Rel Count 0.0 % % (0.0-0.2) Absolute Neuts (auto) 14.75 10^3/uL H 10^3/uL (1.70-6.50) Absolute Lymphs (auto) 1.01 10^3/uL 10^3/uL (1.00-3.00) Absolute Monos (auto) 0.99 10^3/uL H 10^3/uL (0.30-0.80) Absolute Eos (auto) 0.02 10^3/uL L 10^3/uL (0.03-0.40) Absolute Basos (auto) 0.12 10^3/uL H 10^3/uL (0.02-0.10) Absolute Nucleated RBC 0.00 10^3/uL 10^3/uL (0-0.01) Immature Gran % 0.5 % % (0.0-1.1) Immature Gran # 0.08 10^3/uL 10^3/uL (0.00-0.10) Sodium 139 mEq/L mEq/L (135-145) Potassium 3.8 mEq/L mEq/L (3.3-5.0) Chloride 103 mEq/L mEq/L (97-110) Carbon Dioxide 25 mEq/l mEq/l (22-31) Anion Gap 11 mEq/L mEq/L (6-14) BUN 10 mg/dL mg/dL (7-23) Creatinine 0.7 mg/dL mg/dL (0.6-1.0) Estimated GFR > 60 Glucose 177 mg/dL H mg/dL (70-100) Calcium 9.4 mg/dL mg/dL (8.5-10.4) Lipase 40 IU/L IU/L (23-300) Medications Given: Potassium Chloride/Sodium Chloride (Ns W/ 20 Kcl/L) 1,000 mls @ 100 mls/hr IV CONT BIANCA Stop: 02/10/19 14:29 Last Admin: 08/14/18 15:04 Dose: 1,000 mls Ondansetron HCl (Zofran) 4 mg IVP Q4HRS PRN PRN Reason: Nausea/Vomiting, Can't Take PO Stop: 02/10/19 13:22 Last Admin: 08/14/18 14:19 Dose: 4 mg Discontinued Medications Diphenhydramine HCl (Benadryl Injection) 12.5 mg IVP EDNOW ONE Stop: 08/14/18 11:05 Last Admin: 08/14/18 11:17 Dose: 12.5 mg Haloperidol Lactate (Haldol Injection) 2.5 mg IVP EDNOW ONE Stop: 08/14/18 11:04 Last Admin: 08/14/18 11:17 Dose: 2.5 mg Sodium Chloride (Ns) 1,000 mls @ 0 mls/hr IV EDNOW ONE; Wide Open PRN Reason: Protocol Stop: 08/14/18 09:06 Last Admin: 08/14/18 09:26 Dose: 1,000 mls Sodium Chloride (Ns) 1,000 mls @ 0 mls/hr IV ONCE ONE; Wide Open PRN Reason: Protocol Stop: 08/14/18 11:05 Last Admin: 08/14/18 11:17 Dose: 1,000 mls Sodium Chloride (Ns) 1,000 mls @ 100 mls/hr IV CONT BIANCA Stop: 02/10/19 13:14 Last Admin: 08/14/18 14:19 Dose: 1,000 mls Ketorolac Tromethamine (Toradol) 30 mg IVP EDNOW ONE Stop: 08/14/18 11:05 Last Admin: 08/14/18 11:17 Dose: 30 mg Promethazine HCl (Phenergan) 12.5 mg IVP EDNOW ONE Stop: 08/14/18 09:06 Last Admin: 08/14/18 09:26 Dose: 12.5 mg Departure - Departure Disposition: [facility] Inpatient Acute Clinical Impression: Nausea & vomiting Qualifiers: Vomiting type: unspecified Vomiting Intractability: intractable Qualified Code( s): R11.2 - Nausea with vomiting, unspecified Condition: Fair
[2018-08-14] MEDS ORDERED: NS 1,000 ML IV ONE ×2 (09:05→11:04)
[2018-08-14] MEDS ORDERED: PROMETHAZINE HCL 25 MG/ML INJ IVP ONE (09:05)
[2018-08-14 09:38] LABS: PLATELET COUNT 238 10^3/uL (150-400)
[2018-08-14] MEDS ORDERED: HALOPERIDOL LACT 5 MG/ML INJ IVP ONE (11:03)
[2018-08-14] MEDS ORDERED: KETOROLAC 30 MG/1 ML SDV IVP ONE (11:04)
[2018-08-14] MEDS ORDERED: ACETAMINOPHEN 325 MG TAB PO PRN (13:08)
[2018-08-14] MEDS ORDERED: NS 1,000 ML IV SCH (13:15)
[2018-08-14] MEDS ORDERED: oxyCODONE IR 5 MG TAB PO PRN (13:20)
[2018-08-14] MEDS ORDERED: METHADONE HCL 10 MG TAB PO PRN (13:20)
[2018-08-14] MEDS ORDERED: ONDANSETRON 4 MG/2 ML VIAL IVP PRN (13:23)
[2018-08-14] MEDS ORDERED: ONDANSETRON DISINTEGRATING 4 MG TAB PO PRN (13:23)
--- NOTE | 2018-08-14 13:48 | PDGENHP ---
<Chloe Joyner - Last Filed: 08/14/18 14:40> History and Physical - Chief Complaint Abdominal pain and emesis - History of Present Illness 73 y/o female with history of chronic abdominal pain and opiate use presents today actively vomiting, nausea and abdominal pain. She was seen on 06/25/18 and admitted to [facility] for similar symptoms. This is my first encounter with the pt. She was seen in the ED. She was lying on her left-side, curled in a position and sleeping. She refused to answer many of my questions because she felt "like crap." She woke up early this morning with pain and nausea, and vomiting at least 20-30 times, denies hematemesis. In fact, she had an emesis episode while in the room and the color was green/yellow, moderate volume. Denies diarrhea, dysuria, chest pains, SOB, headache. She took her Methadone at 5:00pm yesterday and reports being "long overdue" for her next dose. She refuses a physical examination. She is visibly diaphoretic and pale- appearing. Radial/pedal pulses 2+. No respiratory distress. Past Medical/Surgical History 1. Chronic abdominal pain 2. Chronic opiate use 3. Large bowel obstruction 4. Chronic colitis 5. GERD 6. GI Bleed 7. Back Surgery 8. Appendectomy 9. Cholecystectomy 10. Hysterectomy Social 1. , lives in [place] 2. Smokes cannabis TID, also smokes cigarettes, no alcohol Vital Signs 175/91 77 HR 16 Respirations 90% RA --> 93% 4LNC 37.1c History Information - Allergies/Home Medication List Allergies/Adverse Reactions: No Known Allergies Allergy (Verified 08/14/18 08:58) Home Medications: Methadone HCl [Methadone HCl 10 mg (*)] 20 mg PO TID PRN 01/19/17 [Last Taken 14:00] oxyCODONE IR [Oxycodone Ir (*)] 5 - 10 mg PO Q4-6PRN PRN 02/28/17 [Last Taken ] Estradiol [Estradiol Transdermal Patch] 0.025 mg TD WE 03/19/18 [Last Taken 06/28] I have personally reviewed and updated: family history, medical history, social history, surgical history Past Medical History: See HPI List - Surgical History Additional surgical history: See HPI List - Family History Positive for: non-pertinent - Social History Smoking Status: Heavy smoker Alcohol Use: None Drug Use: Marijuana Review of Systems Review of Systems: ROS: 2-9 pt reviewed & negative except for what was stated in HPI & below Constitutional: Reports: chills, diaphoresis, malaise EENMT: Reports: no symptoms Cardiac: Reports: no symptoms Respiratory: Reports: no symptoms Gastrointestinal: Reports: vomitting, abdominal pain, nausea Genitourinary: Reports: no symptoms Muscolosketal: Reports: no symptoms Skin: Reports: no symptoms Neurological: Reports: no symptoms Hematologic/Lymphatic: Reports: no symptoms Immunologic/Allergy: Reports: no symptoms Physical Exam Physical Exam: Temp Pulse Resp BP Pulse Ox 36.6 C 89 16 189/79 H 97 08/14/18 13:38 08/14/18 13:38 08/14/18 13:38 08/14/18 13:38 08/14/18 13:38 O2 (L/minute) 4 Constitutional: uncomfortable (Left side-lying, pale appearing with diaphoresis visible on forehead), other Peripheral Pulses: 2+: dorsalis-pedis (R) (Radial 2+), dorsalis-pedis (L) ( Radial 2+) Neurologic: other (Deferred - pt non-cooperative with interviewing/examining) Psychiatric: anxious Lymph, Heme, Immunologic: other (Deferred - pt refused physical exam) Lab Data & Imaging Review 08/14/18 09:25 08/14/18 09:25 WBC 16.97 10^3/uL (3.80-9.50) H 08/14/18 09:25 RBC 5.75 10^6/uL (4.18-5.33) H 08/14/18 09:25 Hgb 18.3 g/dL (12.6-16.3) H 08/14/18 09:25 Hct 52.8 % (38.0-47.0) H 08/14/18 09:25 MCV 91.8 fL (81.5-99.8) 08/14/18 09:25 MCH 31.8 pg (27.9-34.1) 08/14/18 09:25 MCHC 34.7 g/dL (32.4-36.7) 08/14/18 09:25 RDW 14.2 % (11.5-15.2) 08/14/18 09:25 Plt Count 238 10^3/uL (150-400) 08/14/18 09:25 MPV 9.1 fL (8.7-11.7) 08/14/18 09:25 Neut % (Auto) 86.9 % (39.3-74.2) H 08/14/18 09:25 Lymph % (Auto) 6.0 % (15.0-45.0) L 08/14/18 09:25 [place] % (Auto) 5.8 % (4.5-13.0) 08/14/18 09:25 Eos % (Auto) 0.1 % (0.6-7.6) L 08/14/18 09:25 Baso % (Auto) 0.7 % (0.3-1.7) 08/14/18 09:25 Nucleat RBC Rel Count 0.0 % (0.0-0.2) 08/14/18 09:25 Absolute Neuts (auto) 14.75 10^3/uL (1.70-6.50) H 08/14/18 09:25 Absolute Lymphs (auto) 1.01 10^3/uL (1.00-3.00) 08/14/18 09:25 Absolute Monos (auto) 0.99 10^3/uL (0.30-0.80) H 08/14/18 09:25 Absolute Eos (auto) 0.02 10^3/uL (0.03-0.40) L 08/14/18 09:25 Absolute Basos (auto) 0.12 10^3/uL (0.02-0.10) H 08/14/18 09:25 Absolute Nucleated RBC 0.00 10^3/uL (0-0.01) 08/14/18 09:25 Immature Gran % 0.5 % (0.0-1.1) 08/14/18 09:25 Immature Gran # 0.08 10^3/uL (0.00-0.10) 08/14/18 09:25 Sodium 139 mEq/L (135-145) 08/14/18 09:25 Potassium 3.8 mEq/L (3.3-5.0) 08/14/18 09:25 Chloride 103 mEq/L (97-110) 08/14/18 09:25 Carbon Dioxide 25 mEq/l (22-31) 08/14/18 09:25 Anion Gap 11 mEq/L (6-14) 08/14/18 09:25 BUN 10 mg/dL (7-23) 08/14/18 09:25 Creatinine 0.7 mg/dL (0.6-1.0) 08/14/18 09:25 Estimated GFR > 60 08/14/18 09:25 Glucose 177 mg/dL (70-100) H 08/14/18 09:25 Calcium 9.4 mg/dL (8.5-10.4) 08/14/18 09:25 Lipase 40 IU/L (23-300) 08/14/18 09:25 Assessment & Plan Plan: 72 y/o female with history of chronic opiate use (Methadone TID and Oxy IR PRN) and chronic abdominal pain presents with abdominal pain, nausea and vomiting. 1. Abdominal pain -KUB and upright imaging to r/o bowel obstruction -Home pain medications PRN (Oxy IR). Do not give if she is somnolent. 2. Nausea and emesis: cyclic vomiting vs cannabis hyperemesis syndrome -Anti-emetics PRN; Zofran and Phenergan -IV NS with K -EKG checking for prolonged QT. If prolonged, d/c Zofran. -Educate pt to reduce her cannabis intake 3. Chronic Opiate Use: Pt reports last Methadone intake was 5:00pm yesterday. -May give her scheduled Methadone doses. If unable to take orally, give Dilaudid IVP to avoid withdrawal -May have Oxy IR PRN 4. Leukocytosis: I suspect this is reactive in nature and not indicative of an infection given she is afebrile and hemodynamically stable. -Continue to monitor -CBC/BMP tomorrow Diet: Regular VTE ppx: SCDs Code: Full Dispo: Admit to obs <Lona Mares - Last Filed: 08/14/18 17:28> History and Physical - History of Present Illness Review of Systems Review of Systems: Physical Exam Physical Exam: Temp Pulse Resp BP Pulse Ox 36.7 C 75 24 H 171/84 H 96 08/14/18 14:00 08/14/18 14:00 08/14/18 14:00 08/14/18 14:00 08/14/18 14:00 O2 (L/minute) 2 Lab Data & Imaging Review 08/14/18 09:25 12 09:25 WBC 16.97 10^3/uL (3.80-9.50) H 08/14/18 09:25 RBC 5.75 10^6/uL (4.18-5.33) H 08/14/18 09:25 Hgb 18.3 g/dL (12.6-16.3) H 08/14/18 09:25 Hct 52.8 % (38.0-47.0) H 08/14/18 09:25 MCV 91.8 fL (81.5-99.8) 08/14/18 09:25 MCH 31.8 pg (27.9-34.1) 08/14/18 09:25 MCHC 34.7 g/dL (32.4-36.7) 08/14/18 09:25 RDW 14.2 % (11.5-15.2) 08/14/18 09:25 Plt Count 238 10^3/uL (150-400) 08/14/18 09:25 MPV 9.1 fL (8.7-11.7) 08/14/18 09:25 Neut % (Auto) 86.9 % (39.3-74.2) H 08/14/18 09:25 Lymph % (Auto) 6.0 % (15.0-45.0) L 08/14/18 09:25 [place] % (Auto) 5.8 % (4.5-13.0) 08/14/18 09:25 Eos % (Auto) 0.1 % (0.6-7.6) L 08/14/18 09:25 Baso % (Auto) 0.7 % (0.3-1.7) 08/14/18 09:25 Nucleat RBC Rel Count 0.0 % (0.0-0.2) 08/14/18 09:25 Absolute Neuts (auto) 14.75 10^3/uL (1.70-6.50) H 08/14/18 09:25 Absolute Lymphs (auto) 1.01 10^3/uL (1.00-3.00) 08/14/18 09:25 Absolute Monos (auto) 0.99 10^3/uL (0.30-0.80) H 08/14/18 09:25 Absolute Eos (auto) 0.02 10^3/uL (0.03-0.40) L 08/14/18 09:25 Absolute Basos (auto) 0.12 10^3/uL (0.02-0.10) H 08/14/18 09:25 Absolute Nucleated RBC 0.00 10^3/uL (0-0.01) 08/14/18 09:25 Immature Gran % 0.5 % (0.0-1.1) 08/14/18 09:25 Immature Gran # 0.08 10^3/uL (0.00-0.10) 08/14/18 09:25 Sodium 139 mEq/L (135-145) 08/14/18 09:25 Potassium 3.8 mEq/L (3.3-5.0) 08/14/18 09:25 Chloride 103 mEq/L (97-110) 08/14/18 09:25 Carbon Dioxide 25 mEq/l (22-31) 08/14/18 09:25 Anion Gap 11 mEq/L (6-14) 08/14/18 09:25 BUN 10 mg/dL (7-23) 08/14/18 09:25 Creatinine 0.7 mg/dL (0.6-1.0) 08/14/18 09:25 Estimated GFR > 60 08/14/18 09:25 Glucose 177 mg/dL (70-100) H 08/14/18 09:25 Calcium 9.4 mg/dL (8.5-10.4) 08/14/18 09:25 Lipase 40 IU/L (23-300) 08/14/18 09:25 Assessment & Plan Assessment: Nausea & vomiting (Acute) Plan: Chart reviewed. Pt seen and evaluated. Abdomen is soft. She refused xray to r /o obstruction. Seems low risk for obstruction with reassuring abdominal exam and passing stool. Agree with above assessment and plan, supportive care, IVF' s.
[2018-08-14] MEDS: NS W/ 20 KCl/L 1,000 ML IV SCH (15:04)
[2018-08-14] MEDS: PROMETHAZINE HCL 25 MG/ML INJ IVP PRN ×2 (15:05→22:18)
[2018-08-14] MEDS: HYDROmorphONE/DILAUDID 2 MG/ML INJ IVP PRN ×2 (16:18→22:17)
[2018-08-15] MEDS: NS W/ 20 KCl/L 1,000 ML IV SCH (04:47)
[2018-08-15] MEDS: PROMETHAZINE HCL 25 MG/ML INJ IVP PRN (04:52)
[2018-08-15] MEDS: HYDROmorphONE/DILAUDID 2 MG/ML INJ IVP PRN (04:52)
[2018-08-15] MEDS ORDERED: ONDANSETRON DISINTEGRATING 4 MG TAB PO PRN (08:33)
[2018-08-15] MEDS ORDERED: PANTOPRAZOLE SODIUM 40 MG TAB PO SCH (09:00)
[2018-08-15] MEDS ORDERED: METHADONE HCL 10 MG TAB PO SCH (09:00)
[2018-08-15 11:35] VITALS: BP 112/76
--- NOTE | 2018-08-15 13:56 | ASMTLACE ---
ANGIE Length of stay for Answers: 1 day current admission Acuity / Level of Answers: No Care: Did the patient have an inpatient admission? Comorbidities - select Answers: Opioid dependence all that apply / Chronic pain # of Emergency department Answers: 3-4 visits in the last 6 months Score: 8 Date Signed: 08/15/2018 01:55 PM Electronically Signed By:Michelle Joshua RN
--- NOTE | 2018-08-15 14:01 | ASMTCMCOM ---
CM Note CM Note Notes: Pt admitted for abdominal pain, which has been chronic. She is on methadone and has opiod dependency, she lives with her and has been cleared by PT/OT for home. CM available for any changes. DC Plan: Independent Date Signed: 08/15/2018 02:00 PM Electronically Signed By:Michelle Joshua RN
--- NOTE | 2018-08-15 16:36 | CPEKG ---
Test Reason : OPEN Blood Pressure : / mmHG Vent. Rate : 083 BPM Atrial Rate : 083 BPM P-R Int : 164 ms QRS Dur : 094 ms QT Int : 404 ms P-R-T Axes : 080 058 077 degrees QTc Int : 475 ms Sinus rhythm Left atrial enlargement Probable left ventricular hypertrophy Nonspecific T abnrm, anterolateral leads Confirmed by Andrea Romero ([id number]) on 08/15/2018 4:35:47 PM Referred By: Confirmed By:Andrea Romero
--- NOTE | 2018-08-15 16:55 | GDS ---
DISCHARGE DIAGNOSES: 1. Nausea/vomiting secondary to cyclic vomiting syndrome, resolved. 2. Chronic pain with chronic continuous opioid use. 3. Leukocytosis, likely stress induced in the setting of vomiting. No evidence of infection. 4. Erythrocytosis, likely secondary to tobacco abuse. 5. Tobacco abuse. HISTORY: For details, please see history and physical dated August 14, 2018. In brief, the patient is a 73-year-old female with a history of chronic pain, on chronic methadone therapy, who has had a history of cyclic vomiting syndrome and also of note uses marijuana, [facility] with refractory nausea and vomiting, and she was admitted for further management. HOSPITAL COURSE: Patient was admitted to the med/surg unit. She received IV fluids and supportive c are with antiemetics. Zofran was deferred given her mildly prolonged QT segment. She was initially unable to tolerate her methadone and received IV Dilaudid to prevent opioid withdrawal. By the o wing morning, her symptoms are completely resolved. She is tolerating a full diet. She feels better . She wishes to go home. She is able to tolerate her methadone now. Her hemoglobin had gone up to 19.9, and I repeated this on the day of discharge, and it is back to 18.2, which is still slightly el evated, but there is no indication for a therapeutic phlebotomy at this point. I did send a JAK2 mut ation and epo level, and this can be followed up by her primary care provider. I encouraged her to q uit smoking as well. She does follow up with Gastroenterology. I have discharged her on PPI therapy as she does have a history of peptic ulcer disease. She may need a repeat endoscopy in the outpatie nt setting if her symptoms persist. She has a followup plan with Dr. Sebas Nathan. DISPOSITION: Patient is discharged home in stable condition. FOLLOWUP: 1. Dr. Sebas Nathan, Gastroenterology. 2. Dr. Julienne Davidson, primary care. DISCHARGE MEDICATIONS: Please see OrderUp for completed outpatient medication list. New medication s on discharge include Protonix 40 mg daily, #30, no refills. She will continue all other outpatient medications as previously prescribed, including methadone 20 mg t.i.d., oxycodone 5-10 mg p.o. q.4 h ours, and estradiol patch 0.025 mg. Note, there is a relative contraindication with estrogen therapy in her age range and would recommend followup conversations regarding cardiovascular risks with her primary care physician. /[id number]/MODL
== END 2018-08-15 15:34 | disposition home or self-care (01) ==
LOC: F3E 14:02
PROVIDERS: ADMIT Hospitalist; ATTEND Hospitalist
DX: G43.A0 Cyclical vomiting, in migraine, not intractable (principal); G89.29 Other chronic pain; R10.9 Unspecified abdominal pain; F11.20 Opioid dependence, uncomplicated; D72.829 Elevated white blood cell count, unspecified; D75.1 Secondary polycythemia; F12.10 Cannabis abuse, uncomplicated; E86.9 Volume depletion, unspecified; F17.200 Nicotine dependence, unspecified, uncomplicated; K21.9 Gastro-esophageal reflux disease without esophagitis; Z79.899 Other long term (current) drug therapy; Z87.19 Personal history of other diseases of the digestive system; Z90.49 Acquired absence of other specified parts of digestive tract; Z90.710 Acquired absence of both cervix and uterus
CPT/HCPCS: 93005; 96361; 96374; 96375; 96376; 97116; 97161; 97165; 99285; G0378; G8978; G8979; G8987; G8988; G8989; J1170; J1200; J1630; J1885; J2405; J2550; 81439-90; 82668-90

== ENCOUNTER 2018-10-01 10:40 | Observation (INO) | payer OTHER ==
--- NOTE | 2018-10-01 10:56 | EDPHY ---
H & P Time Seen by Provider: 10/01/18 10:42 HPI/ROS: CHIEF COMPLAINT: Abdominal pain and vomiting HISTORY OF PRESENT ILLNESS: Patient is a long history of cyclic vomiting and was last admitted in August of last year. She was also admitted June 25 , March 19, January 10, on October 19. Patient was doing well last night and even went out to look at the linear eclipse with her . She states that at 5:00 a.m. This morning she had recurrence of her typical symptoms which are multiple episodes of nausea and vomiting with diffuse abdominal cramping. She says this is identical to previous episodes of her vomiting syndrome and she does not feel like this is a bowel obstruction. Symptoms severe and not better with oral intake. Not associated with diarrhea. REVIEW OF SYSTEMS: Eye: no change in vision ENT: no sore throat Cardiac: no chest pain or syncope Pulmonary: no cough or SOB Abdomen: HPI Musculoskeletal: Chronic back pain on methadone Skin: no rash Neuro: no headache Constitutional: no fever : no urinary symptoms A comprehensive 10 point review of systems is otherwise negative aside from elements mentioned in the history of present illness. PAST MEDICAL HISTORY: History and physical dated 08/14/2018 includes abdominal pain with opioid use, large bowel obstruction, GERD, GI bleed, spine surgery, appendectomy, cholecystectomy, hysterectomy Social history: Here with her General Appearance: Alert and conversant, cooperative. Lying on her side actively vomiting Eyes: No scleral icterus. ENT, Mouth: Dry mucous membranes. Respiratory: Normal respiratory effort, breath sounds equal, lungs are clear to auscultation. Cardiovascular: Regular rate and rhythm. Gastrointestinal: Abdomen is soft and non tender. Bowel sounds present not distended. Neurological: Alert, face symmetric, normal motor and sensory in extremities. Skin: Warm and dry, no rashes. Musculoskeletal: No peripheral edema. Psychiatric: Mildly anxious. Emergency Department course/MDM: On methadone, will proceed without narcotics. Normal saline 1 L, IV ketamine 30 mg, Benadryl 50 mg IV. Low suspicion for bowel obstruction given nonsurgical abdominal examination and patient's description of symptoms as identical to her previous cyclic vomiting episodes. 1223: Still retching and feels like she has persistent nausea. Repeat ketamine 30 and Phenergan 12.5. Admission hospitalist service for treatment of severe intractable vomiting. Smoking Status: Heavy smoker Constitutional: Initial Vital Signs Temperature (C) 36.7 C 10/01/18 10:44 Heart Rate 85 10/01/18 10:44 Respiratory Rate 18 10/01/18 10:44 Blood Pressure 98/67 L 10/01/18 10:44 O2 Sat (%) 91 L 10/01/18 10:44 O2 Delivery Mode Nasal Cannula O2 (L/minute) 2 Allergies/Adverse Reactions: No Known Allergies Allergy (Verified 10/01/18 10:42) Home Medications: Medication Instructions Recorded Methadone HCl [Methadone HCl 10 mg 20 mg PO TID 01/19/17 (*)] oxyCODONE IR [Oxycodone Ir (*)] 5 - 10 mg PO Q4-6PRN PRN 02/28/17 Estradiol [Estradiol Transdermal 0.025 mg TD TU 03/19/18 Patch] Pantoprazole Sodium [Protonix 40mg 40 mg PO DAILY #30 tab 08/15/18 (*)] Medical Decision Making Differential Diagnosis: Differential considered including but not limited to bowel obstruction, cyclic vomiting, metabolic abnormality, food poisoning or viral gastroenteritis. Consult/Admit Bed Type: [place] [id number] - Data Points Laboratory Results: Laboratory Results 10/01/18 11:18 10/01/18 11:18 10/01/18 10/01/18 10/01/18 11:18 11:18 11:18 WBC 13.32 10^3/uL H 10^3/uL (3.80-9.50) RBC 5.57 10^6/uL H 10^6/uL (4.18-5.33) Hgb 17.9 g/dL H g/dL (12.6-16.3) Hct 52.4 % H % (38.0-47.0) MCV 94.1 fL fL (81.5-99.8) MCH 32.1 pg pg (27.9-34.1) MCHC 34.2 g/dL g/dL (32.4-36.7) RDW 14.4 % % (11.5-15.2) Plt Count 239 10^3/uL 10^3/uL (150-400) MPV 9.8 fL fL (8.7-11.7) Neut % (Auto) 87.0 % H % (39.3-74.2) Lymph % (Auto) 7.0 % L % (15.0-45.0) [place] % (Auto) 4.7 % % (4.5-13.0) Eos % (Auto) 0.2 % L % (0.6-7.6) Baso % (Auto) 0.7 % % (0.3-1.7) Nucleat RBC Rel Count 0.0 % % (0.0-0.2) Absolute Neuts (auto) 11.60 10^3/uL H 10^3/uL (1.70-6.50) Absolute Lymphs (auto) 0.93 10^3/uL L 10^3/uL (1.00-3.00) Absolute Monos (auto) 0.62 10^3/uL 10^3/uL (0.30-0.80) Absolute Eos (auto) 0.03 10^3/uL 10^3/uL (0.03-0.40) Absolute Basos (auto) 0.09 10^3/uL 10^3/uL (0.02-0.10) Absolute Nucleated RBC 0.00 10^3/uL 10^3/uL (0-0.01) Immature Gran % 0.4 % % (0.0-1.1) Immature Gran # 0.05 10^3/uL 10^3/uL (0.00-0.10) Sodium 141 mEq/L mEq/L REJ (135-145) Potassium 3.9 mEq/L mEq/L REJ (3.5-5.2) Chloride 105 mEq/L mEq/L REJ (97-110) Carbon Dioxide 25 mEq/l mEq/l REJ (22-31) Anion Gap 11 mEq/L mEq/L REJ (6-14) BUN 7 mg/dL mg/dL REJ (7-23) Creatinine 0.6 mg/dL mg/dL REJ (0.6-1.0) Estimated GFR > 60 REJ Glucose 158 mg/dL H mg/dL REJ (70-100) Calcium 9.0 mg/dL mg/dL REJ (8.5-10.4) Specimen Hemolysis 136 Medications Given: Discontinued Medications Diphenhydramine HCl (Benadryl Injection) 50 mg IVP EDNOW ONE Stop: 10/01/18 11:06 Last Admin: 10/01/18 11:22 Dose: 50 mg Sodium Chloride (Ns) 1,000 mls @ 0 mls/hr IV EDNOW ONE; Wide Open PRN Reason: Protocol Stop: 10/01/18 11:05 Last Admin: 10/01/18 11:19 Dose: 1,000 mls Ketamine HCl (Ketamine) 30 mg IVP EDNOW ONE Stop: 10/01/18 11:06 Last Admin: 10/01/18 11:27 Dose: 30 mg Ketamine HCl (Ketamine) 30 mg IVP EDNOW ONE Stop: 10/01/18 12:25 Last Admin: 10/01/18 12:27 Dose: Not Given Promethazine HCl (Phenergan) 12.5 mg IVP EDNOW ONE Stop: 10/01/18 12:25 Last Admin: 10/01/18 12:41 Dose: 12.5 mg Departure - Departure Disposition: [facility] Inpatient Acute Clinical Impression: Intractable cyclical vomiting syndrome Intractable vomiting Qualifiers: Vomiting type: cyclical vomiting Nausea presence: with nausea Qualified Code(s) : G43.A1 - Cyclical vomiting, intractable Condition: Good
[2018-10-01] MEDS ORDERED: NS 1,000 ML IV ONE (11:04)
[2018-10-01] MEDS ORDERED: KETAMINE 200 MG/20 ML VIAL IVP ONE ×2 (11:05→12:24)
[2018-10-01 11:27] LABS: PLATELET COUNT 239 10^3/uL (150-400)
[2018-10-01] MEDS ORDERED: PROMETHAZINE HCL 25 MG/ML INJ IVP ONE (12:24)
[2018-10-01] MEDS ORDERED: ACETAMINOPHEN 325 MG TAB PO PRN (13:13)
[2018-10-01] MEDS ORDERED: SCOPOLAMINE HYDROBROMIDE 1 MG/3 DAYS PATCH TD SCH (13:15)
[2018-10-01] MEDS ORDERED: ONDANSETRON DISINTEGRATING 4 MG TAB PO PRN (13:19)
--- NOTE | 2018-10-01 13:34 | PDGENHP ---
History and Physical - Chief Complaint Abdominal pain, nausea, vomiting - History of Present Illness This is a 73 y/o female who has a history of cyclic vomiting and was admitted in August 2018. She has also been admitted for the same presentation on June 25, March 19, January 10 and October 19 2017. I evaluated the pt in her room. She did not respond to my questioning. She is in no respiratory distress, pale-appearance and left lying in a position. Her clothing is wet from vomit and urine incontinence however she refuses to be changed at the moment. Per Dr. Shipley's notes, she reported feeling well last night. Around 5:00am this morning, she had her typical symptoms with multiple episodes of nausea, vomiting and diffuse abdominal cramping. She reported that it is identical to previous episodes of her vomiting syndrome. No association with diarrhea. Addendum: I attempted once again to evaluate the pt but she refused. She refuses capsicin cream right now but will allow it once her condition improves. She refuses any type of abdominal imaging saying it isn't a bowel obstruction and she is having normal bowel movements. Past Medical/Surgical History 1. Chronic abdominal pain 2. Chronic opiate use for her back pain 3. Large bowel obstruction 4. Chronic colitis 5. GERD 6. GI bleed 7. Back surgery 8. Appendectomy 9. Cholecystectomy 10. Hysterectomy 11. Cyclic vomiting syndrome with ongoing THC dependence Social 1. , lives in [place] 2. Smokes cannabis TID, also smokes cigarettes, no alcohol History Information - Allergies/Home Medication List Allergies/Adverse Reactions: No Known Allergies Allergy (Verified 10/01/18 10:42) Home Medications: Methadone HCl [Methadone HCl 10 mg (*)] 20 mg PO TID 01/19/17 [Last Taken ] oxyCODONE IR [Oxycodone Ir (*)] 5 - 10 mg PO Q4-6PRN PRN 02/28/17 [Last Taken ] Estradiol [Estradiol Transdermal Patch] 0.025 mg TD TU 03/19/18 [Last Taken ] I have personally reviewed and updated: family history, medical history, social history, surgical history Past Medical History: See HPI List - Surgical History Additional surgical history: See HPI List - Family History Positive for: non-pertinent - Social History Smoking Status: Heavy smoker Alcohol Use: None Drug Use: Marijuana Review of Systems ROS: 10pt was reviewed & negative except for what was stated in HPI & below Constitutional: Reports: malaise EENMT: Reports: no symptoms Cardiac: Reports: no symptoms Respiratory: Reports: no symptoms Gastrointestinal: Reports: vomitting, abdominal pain, nausea Genitourinary: Reports: no symptoms Muscolosketal: Reports: no symptoms Skin: Reports: no symptoms Neurological: Reports: no symptoms Hematologic/Lymphatic: Reports: no symptoms Immunologic/Allergy: Reports: no symptoms Physical Exam Physical Exam: She refused physical examination Temp Pulse Resp BP Pulse Ox 36.7 C 79 18 165/97 H 100 10/01/18 10:44 10/01/18 12:45 10/01/18 12:45 10/01/18 12:45 10/01/18 12:45 Constitutional: no apparent distress, uncomfortable Eyes: anicteric sclera, EOMI Neurologic: sensation intact bilaterally Psychiatric: not encephalopathic, thought process linear, anxious Lab Data & Imaging Review 10/01/18 11:18 10/01/18 11:18 WBC 13.32 10^3/uL (3.80-9.50) H 10/01/18 11:18 RBC 5.57 10^6/uL (4.18-5.33) H 10/01/18 11:18 Hgb 17.9 g/dL (12.6-16.3) H 10/01/18 11:18 Hct 52.4 % (38.0-47.0) H 10/01/18 11:18 MCV 94.1 fL (81.5-99.8) 10/01/18 11:18 MCH 32.1 pg (27.9-34.1) 10/01/18 11:18 MCHC 34.2 g/dL (32.4-36.7) 10/01/18 11:18 RDW 14.4 % (11.5-15.2) 10/01/18 11:18 Plt Count 239 10^3/uL (150-400) 10/01/18 11:18 MPV 9.8 fL (8.7-11.7) 10/01/18 11:18 Neut % (Auto) 87.0 % (39.3-74.2) H 10/01/18 11:18 Lymph % (Auto) 7.0 % (15.0-45.0) L 10/01/18 11:18 [place] % (Auto) 4.7 % (4.5-13.0) 10/01/18 11:18 Eos % (Auto) 0.2 % (0.6-7.6) L 10/01/18 11:18 Baso % (Auto) 0.7 % (0.3-1.7) 10/01/18 11:18 Nucleat RBC Rel Count 0.0 % (0.0-0.2) 10/01/18 11:18 Absolute Neuts (auto) 11.60 10^3/uL (1.70-6.50) H 10/01/18 11:18 Absolute Lymphs (auto) 0.93 10^3/uL (1.00-3.00) L 10/01/18 11:18 Absolute Monos (auto) 0.62 10^3/uL (0.30-0.80) 10/01/18 11:18 Absolute Eos (auto) 0.03 10^3/uL (0.03-0.40) 10/01/18 11:18 Absolute Basos (auto) 0.09 10^3/uL (0.02-0.10) 10/01/18 11:18 Absolute Nucleated RBC 0.00 10^3/uL (0-0.01) 10/01/18 11:18 Immature Gran % 0.4 % (0.0-1.1) 10/01/18 11:18 Immature Gran # 0.05 10^3/uL (0.00-0.10) 10/01/18 11:18 Sodium 141 mEq/L (135-145) 10/01/18 11:18 Potassium 3.9 mEq/L (3.5-5.2) 10/01/18 11:18 Chloride 105 mEq/L (97-110) 10/01/18 11:18 Carbon Dioxide 25 mEq/l (22-31) 10/01/18 11:18 Anion Gap 11 mEq/L (6-14) 10/01/18 11:18 BUN 7 mg/dL (7-23) 10/01/18 11:18 Creatinine 0.6 mg/dL (0.6-1.0) 10/01/18 11:18 Estimated GFR > 60 10/01/18 11:18 Glucose 158 mg/dL (70-100) H 10/01/18 11:18 Calcium 9.0 mg/dL (8.5-10.4) 10/01/18 11:18 Specimen Hemolysis 136 10/01/18 11:18 Assessment & Plan Plan: 73 y/o female presents with history of chronic opiate use and chronic abdominal pain presents with abdominal pain, nausea and vomiting. 1. Nausea and vomiting: associated with cyclic vomiting syndrome versus cannabis hyperemesis syndrome. I suspect it is a combination of both. -Encourage cessation and/or reduction in cannabis use -Anti-emetics PRN; Phenergan, Zofran, Reglan, Compazine -IV NS with K x 2 bags, will recheck BMP tomorrow. -Checking LFTs and Lipase 2. Chronic opiate use: may continue to give Oxy IR and Methadone 3. Leukocytosis: mild (13.32). Most likely reactive, not infectious. Afebrile and hemodynamically stable. 4. Abdominal pain -Apply capsicin cream on abdomen if tolerated -Attempt hot packs to remedy pain -Home Oxy IR PRN -Checking LFTs and Lipase -Pt refuses abdominal imaging to r/o bowel obstruction 5. GERD: will provide pantoprazole IVP d/t current poor PO intake 6. Polycythemia: the pt is a smoker [place]. Diet: Clears Code: Full VTE ppx: SCDs Dispo: Admit to obs
[2018-10-01] MEDS ORDERED: PROCHLORPERAZINE MALEATE 10 MG TAB PO PRN (13:54)
[2018-10-01] MEDS: ONDANSETRON 4 MG/2 ML VIAL IVP PRN ×2 (13:55→17:57)
[2018-10-01] MEDS ORDERED: oxyCODONE IR 5 MG TAB PO PRN (13:56)
[2018-10-01] MEDS: HYDROmorphONE/DILAUDID 1 MG/ML INJ IVP PRN ×4 (14:38→22:11)
[2018-10-01] MEDS: PANTOPRAZOLE SODIUM 40 MG VIAL IVP SCH (14:38)
[2018-10-01] MEDS: NS W/ 20 KCl/L 1,000 ML IV SCH (14:41)
[2018-10-01] MEDS: PROMETHAZINE HCL 25 MG/ML INJ IVP PRN ×2 (14:51→21:31)
--- NOTE | 2018-10-01 15:04 | HOSPPROG ---
Hospitalist Progress Note Assessment/Plan: I have personally seen and evaluated the patient. I agree with the assessment and plan as outlined by PAFern, in a separate note. Objective: Vital Signs Temp Pulse Resp BP Pulse Ox 36.7 C 79 18 165/97 H 100 10/01/18 10:44 10/01/18 12:45 10/01/18 12:45 10/01/18 12:45 10/01/18 12:45 09/30/18 10/01/18 10/02/18 05:59 05:59 05:59 Intake Total 700 Balance 700 ICD10 Worksheet Patient Problems: Problems Problem Status Onset Intractable cyclical vomiting syndrome Acute Intractable vomiting Acute opiod Active Abdominal pain Acute Abdominal pain Acute Acute abdominal pain Acute Acute encephalopathy Acute Bowel obstruction Acute Cyclic vomiting syndrome Acute Cyclical vomiting syndrome Acute Leukocytosis Acute Methadone withdrawal Acute Nausea Acute Nausea & vomiting Acute Opiate dependence, continuous Acute Vomiting Acute
[2018-10-01] MEDS: CAPSAICIN 0.025% CREAM TP SCH ×2 (17:29→21:36)
[2018-10-01] MEDS: METHADONE HCL 10 MG TAB PO SCH (17:29)
[2018-10-01] MEDS: METOCLOPRAMIDE 10 MG/2 ML VIAL IVP SCH (17:57)
[2018-10-01] MEDS ORDERED: LORazepam 2 MG/ML INJ IV ONE (20:15)
[2018-10-02] MEDS: METOCLOPRAMIDE 10 MG/2 ML VIAL IVP SCH ×3 (00:12→17:54)
[2018-10-02] MEDS: HYDROmorphONE/DILAUDID 1 MG/ML INJ IVP PRN ×2 (00:25→03:38)
[2018-10-02] MEDS: METHADONE HCL 10 MG TAB PO SCH ×3 (03:30→17:55)
[2018-10-02 08:38] VITALS: BP 147/93
[2018-10-02] MEDS: NS W/ 20 KCl/L 1,000 ML IV SCH (09:54)
[2018-10-02] MEDS: CAPSAICIN 0.025% CREAM TP SCH ×2 (10:02→17:55)
[2018-10-02] MEDS: PANTOPRAZOLE SODIUM 40 MG VIAL IVP SCH (10:07)
--- NOTE | 2018-10-02 15:05 | ASMTDCNOTE ---
Case Management Discharge Discharge Order Complete? Answers: Yes Patient to Obtain Answers: via Family Medications Transportation Arranged Answers: Family/Friends Discharge Comments Notes: Pt is a 73 yo F, presents with abdominal pain, nausea, and vomiting. Pt has history of chronic opiate and MJ use and chronic abdominal pain. Pt is a smoker and [place]. Pt lives with . CM offered pt education on substance use and support groups and she denied any of the information. Pt is cleared by therapies. Pt will be discharged independently. Reports her will transport. Date Signed: 10/02/2018 03:04 PM Electronically Signed By:SHELIA Davis
--- NOTE | 2018-10-02 15:06 | ASMTLACE ---
ANGIE Length of stay for Answers: 1 day current admission Acuity / Level of Answers: Yes Care: Did the patient have an inpatient admission? Comorbidities - select Answers: Opioid dependence all that apply / Chronic pain Other Notes: Hx of cyclic vomiting; GERD # of Emergency department Answers: 3-4 visits in the last 6 months Social determinants Answers: History of substance abuse (ETOH, street drugs, prescription drugs, etc.) Score: 15 Date Signed: 10/02/2018 03:05 PM Electronically Signed By:SHELIA Davis
--- NOTE | 2018-10-02 15:07 | PDDCSUM ---
Discharge Summary Discharge Summary: Date of Admission: 10/01/2018 Date of Discharge: 10/02/2018 Followup: PCP, GI Hospital Course Problem List: 73 y/o female presents with history of chronic opiate use and chronic abdominal pain presents with abdominal pain, nausea and vomiting. 1. Nausea and vomiting: associated with cyclic vomiting syndrome versus cannabis hyperemesis syndrome. I suspect it is a combination of both. -Encouraged cessation and/or reduction in cannabis use -Anti-emetics PRN; Phenergan, Zofran, Reglan, Compazine -IV NS with K x 2 bags -LFTs and Lipase WNL - WIll discharge to continue PO Zofran for future attacks 2. Chronic opiate use: may continue to give home Oxy IR and Methadone 3. Leukocytosis: mild (13.32). Most likely reactive, not infectious. Afebrile and hemodynamically stable. 4. Abdominal pain -Apply capsicin cream on abdomen if tolerated -Attempt hot packs to remedy pain -Home Oxy IR PRN 5. GERD: will provide pantoprazole IVP d/t current poor PO intake, continue home PPI 6. Polycythemia: the pt is a smoker and [place]. Time spent on discharge was >35 minutes with >50% of time spent on patient education and counseling.
--- NOTE | 2018-10-02 15:09 | ASDISCHSUM ---
Discharge Information Plan Status:Home with No Needs Medically Cleared to Leave:10/01/2018 Discharge Date:10/01/2018 CM D/C Disposition:Home, Routine, Self-Care ADT D/C Disposition: Projected Discharge Date:10/02/2018 12:00 AM Transportation at D/C:Family Discharge Delay Reason: Follow-Up Date:10/02/2018 12:00 AM Discharge Slot: Final Diagnosis: Placement Information Patient Contact Information Contact Name:DANIEL Relationship: Address:[address] City:[place] Altern[place] Phone: State/Zip Code:[place] [address] Email: Financial Information Financial Class:Medicare Primary Plan Desc:MEDICARE OUTPATIENT Primary Plan Number:[id number] Secondary Plan Desc:NAY LARA PP POS Secondary Plan Number:[id number] Assessment Information LACE LACE Length of stay for Answers: 1 day current admission Acuity / Level of Answers: Yes Care: Did the patient have an inpatient admission? Comorbidities - select Answers: Opioid dependence all that apply / Chronic pain Other Notes: Hx of cyclic vomiting; GERD # of Emergency department Answers: 3-4 visits in the last 6 months Social determinants Answers: History of substance abuse (ETOH, street drugs, prescription drugs, etc.) Score: 15 Date Signed: 10/02/2018 03:05 PM Electronically Signed By:SHELIA Davis Case Management Discharge Plan Note Case Management Discharge Discharge Order Complete? Answers: Yes Patient to Obtain Answers: via Family Medications Transportation Arranged Answers: Family/Friends Discharge Comments Notes: Pt is a 73 yo F, presents with abdominal pain, nausea, and vomiting. Pt has history of chronic opiate and MJ use and chronic abdominal pain. Pt is a smoker and lives [place] in [place]. Pt lives with . CM offered pt education on substance use and support groups and she denied any of the information. Pt is cleared by therapies. Pt will be discharged independently. Reports her will transport. Date Signed: 10/02/2018 03:04 PM Electronically Signed By:SHELIA Davis Intervention Information Intervention Type:*Incorrect Registration Date of Service:10/01/2018 01:46 PM Patient Type:Inpatient Staff Member:Danyelle March Hours: Discipline: Severity: Comment: Intervention Type:*PIERCE-Signed Date of Service:10/02/2018 12:08 PM Patient Type:Observation Staff Member:Cecille Dickerson Hours: Discipline: Severity: Comment:
[2018-10-04] MEDS ORDERED: PATCH REMOVAL 1 EA PATCH TD SCH (13:16)
== END 2018-10-02 18:01 | disposition home or self-care (01) ==
LOC: INTOOBSV 12:53 → F1N 13:20
PROVIDERS: ADMIT Internal Medicine; ATTEND Internal Medicine
DX: G43.A1 Cyclical vomiting, in migraine, intractable (principal); D72.829 Elevated white blood cell count, unspecified; R10.9 Unspecified abdominal pain; K21.9 Gastro-esophageal reflux disease without esophagitis; D75.1 Secondary polycythemia; F17.200 Nicotine dependence, unspecified, uncomplicated; Z79.891 Long term (current) use of opiate analgesic
CPT/HCPCS: 96361; 96374; 96375; 96376; 97165; 99285; G0378; J1170; J1200; J2060; J2405; J2550; J2765